=== PATIENT | female | born 1985 | race Caucasian/White ===

== ENCOUNTER 2017-07-10 22:37 | Emergency (ER) | payer OTHER ==
[2017-07-11 00:15] LABS: Absolute Lymphocytes (CBC) 1.4 K/uL (0.7-4.9); Absolute Monocytes 0.7 K/uL (0.1-1.3); Absolute Neutrophil 16.1 K/uL (1.8-8.0); Basophils % 0.4 % (0-1.3); Hematocrit 36.6 % (36.0-45.0); Lymphocytes % 7.6 % (15.3-44.8); MCH 28.6 pg (27.0-35.0); MCV 85.2 fL (80-100); MPV 9.5 fL (7.6-11.3); Monocytes % 3.8 % (3.3-12.3)
[2017-07-11 00:22] LABS: Protime INR 0.92
[2017-07-11 00:29] LABS: Bicarbonate 26 mEq/L (21-31); Glucose Level 152 mg/dL (65-120); Lipase 29 U/L (22-51); Potassium 4.1 mEq/L (3.6-5.0); Sodium Level 138 mEq/L (135-145)
[2017-07-11 00:36] LABS: ALT/SGPT 20 IU/L (10-60); AST/SGOT 23 IU/L (10-42); Albumin 3.2 g/dL (3.2-5.5); Alkaline Phosphatase 49 IU/L (42-121); BUN Blood Urea Nitrogen 14 mg/dL (6-20); Bilirubin Direct < 0.1 mg/dL (0-0.2); Bilirubin Total 0.3 mg/dL (0.3-1.2); CKMB Creatine Kinase MB 1.1 ng/ml (0.3-4.0); Creatine Phosphokinase 57 IU/L (22-269); Glomerular Filtration Rate > 90 mL/min (=/>90); Magnesium 1.7 mg/dL (1.8-2.5); Protein, Total 6.4 g/dL (6.0-8.3)
[2017-07-11 01:11] LABS: Urine Blood NEGATIVE (NEG); Urine Glucose NEGATIVE (NEG); Urine Protein 1+ (NEG)
[2017-07-11 01:51] LABS: Blood Morphology Comment NOT SEEN (NOT SEEN); Platelet Estimate ADEQ; Urine White Blood Cell Casts OK
[2017-07-11] MEDS ORDERED: MORPHINE 4 MG/ML SYR ONE (03:12)
[2017-07-11] MEDS ORDERED: ONDANSETRON 4 MG/2 ML VIAL ONE (03:12)
--- NOTE | 2017-07-11 03:44 | EDPHYS ---
Physician Documentation [facility] Name: Elizabeth Britton Age: 31 yrs Sex: Female : 1985 Arrival Date: 07/10/2017 Time: 22:51 Bed 5 Private MD: ED Physician Jaren Anderson HPI: 07/11 00:00 This 31 yrs old Female presents to ER via Ambulatory with complaints of chest pm1 pain. 00:00 The patient or guardian reports chest pain that is located primarily in the anterior pm1 chest wall, right. The pain does not radiate. Associated signs and symptoms: Pertinent positives: abdominal pain, shortness of breath, Pertinent negatives: cough, diaphoresis, headache, nausea, palpitations, vomiting. 00:00 The chest pain is described as aching. Duration: The patient or guardian reports a pm1 single episode. Severity of pain: in the emergency department the pain has resolved. The patient has not experienced similar symptoms in the past. Patient was seen at the fertility clinic and had 16 eggs harvested after hormonal treatment. Patient with some expected lower abdominal pain but at 2100 she started to experience some right sided chest pain and shortness of breath. Chest pain resolved but she reported some shortness of breath and upper abdominal pain. Patient concerned due to history of PE. 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 - Social history:: Smoking status: Patient/guardian denies using tobacco, Patient/guardian denies using alcohol, but has a distant history of alcohol abuse, street drugs. ROS: 07/11 00:00 Constitutional: Negative for fever, chills, and weight loss, Eyes: Negative for injury, pm1 pain, redness, and discharge, ENT: Negative for injury, pain, and discharge, Neck: Negative for injury, pain, and swelling. Back: Negative for injury and pain. : Negative for injury, bleeding, discharge, and swelling, MS/Extremity: Negative for injury and deformity, Skin: Negative for injury, rash, and discoloration, Neuro: Negative for headache, weakness, numbness, tingling, and seizure. Cardiovascular: Positive for chest pain, resolved. Respiratory: Positive for shortness of breath, Negative for cough, sputum production, wheezing. Abdomen/GI: Positive for abdominal pain, of the suprapubic area, right upper quadrant and left upper quadrant, Negative for nausea, vomiting, and diarrhea. Exam: 00:00 Constitutional: This is a well developed, well nourished patient who is awake, alert, pm1 and in no acute distress. Head/Face: Normocephalic, atraumatic. Eyes: Pupils equal round and reactive to light, extra-ocular motions intact. Lids and lashes normal. Conjunctiva and sclera are non-icteric and not injected. Cornea within normal limits. Periorbital areas with no swelling, redness, or edema. ENT: Nares patent. No nasal discharge, no septal abnormalities noted. Tympanic membranes are normal and external auditory canals are clear. Oropharynx with no redness, swelling, or masses, exudates, or evidence of obstruction, uvula midline. Mucous membranes moist. Neck: Trachea midline, no thyromegaly or masses palpated, and no cervical lymphadenopathy. Supple, full range of motion without nuchal rigidity, or vertebral point tenderness. No Meningismus. Chest/axilla: Normal chest wall appearance and motion. Nontender with no deformity. No lesions are appreciated. Cardiovascular: Regular rate and rhythm with a normal S1 and S2. No gallops, murmurs, or rubs. Normal PMI, no JVD. No pulse deficits. Respiratory: Lungs have equal breath sounds bilaterally, clear to auscultation and percussion. No rales, rhonchi or wheezes noted. No increased work of breathing, no retractions or nasal flaring. 00:00 Back: No spinal tenderness. No costovertebral tenderness. Full range of motion. Skin: Warm, dry with normal turgor. Normal color with no rashes, no lesions, and no evidence of cellulitis. MS/ Extremity: Pulses equal, no cyanosis. Neurovascular intact. Full, normal range of motion. 00:00 Abdomen/GI: Inspection: abdomen appears normal, Bowel sounds: normal, Palpation: soft, mild abdominal tenderness, in the right upper quadrant and left upper quadrant, mass, is not appreciated, rebound tenderness, is not appreciated. 00:00 Neuro: Orientation: is normal, Motor: is normal, moves all fours, Gait: is steady, at a normal pace, without difficulty. Vital Signs: 07/10 23:01 BP 100 / 65; Pulse 85; Resp 14; Temp 97.7(O); Pulse Ox 98% on R/A; Weight 63.5 kg (R); ao Height 5 ft. 2 in. (157.48 cm) (R); Pain 4/10; 23:58 BP 94 / 60; Pulse 55; Resp 18; Pulse Ox 100% on R/A; aa1 07/11 01:18 BP 116 / 82; Pulse 54; Resp 16 S; Pulse Ox 100% on R/A; bb 02:19 BP 101 / 72; Pulse 53; Resp 16; Pulse Ox 99% on R/A; bb 03:04 BP 100 / 66; Pulse 55; Resp 18; Pulse Ox 97% on R/A; Pain 6/10; bb 03:58 BP 108 / 73; Pulse 57; Resp 17 S; Temp 97.9(O); Pulse Ox 100% on R/A; Pain 3/10; bb 07/10 23:01 Body Mass Index 25.61 (63.50 kg, 157.48 cm) ao MDM: 07/10 23:04 Patient medically screened. pm1 07/11 03:38 Data reviewed: vital signs. Data interpreted: Pulse oximetry: on room air is 97 %. pm1 Interpretation: normal. Counseling: I had a detailed discussion with the patient and/or guardian regarding: the historical points, exam findings, and any diagnostic results supporting the discharge/admit diagnosis, lab results, radiology results, the need for outpatient follow up, an OB/Gyne specialist, tomorrow. 03:40 Physician consultation: MD Harden was contacted at 03:40, regarding consult, patient's pm1 condition, and will see patient in office, tomorrow, would like medications started, Lovenox, Aspirin PO daily and Lovenox 40 mg SQ BID. Loading dose of Lovenox in the ER, she will contact the patient now to give further instructions. No antibiotic therapy. 07/10 23:23 Order name: BNP; Complete Time: 01:12 pm1 07/10 23:23 Order name: Basic Metabolic Panel; Complete Time: 00:56 pm1 07/10 23:23 Order name: CBC with Diff; Complete Time: 01:52 pm1 07/10 23:23 Order name: Ckmb; Complete Time: 00:56 pm1 07/10 23:23 Order name: CPK; Complete Time: 00:56 pm1 07/10 23:23 Order name: LFT's; Complete Time: 00:56 pm1 07/10 23:23 Order name: Magnesium; Complete Time: 00:56 pm1 07/10 23:23 Order name: PT-INR; Complete Time: 00:56 pm1 07/10 23:23 Order name: Ptt, Activated; Complete Time: 00:56 pm1 07/10 23:23 Order name: Troponin (emerg Dept Use Only); Complete Time: 00:56 pm1 07/10 23:23 Order name: XRAY Chest (1 view) pm1 07/10 23:23 Order name: Lipase; Complete Time: 00:56 pm1 07/11 00:17 Order name: Urine Dipstick--Ancillary (enter results); Complete Time: 01:12 em1 07/11 01:52 Order name: CBC Smear Scan; Complete Time: 01:52 EDMS 04 23:23 Order name: EKG; Complete Time: 23:23 pm1 07/10 23:23 Order name: Cardiac monitoring; Complete Time: 00:03 pm1 07/10 23:23 Order name: EKG - Nurse/Tech; Complete Time: 00:36 pm1 07/10 23:23 Order name: IV Saline Lock; Complete Time: 00:03 pm1 07/10 23:23 Order name: Labs collected and sent; Complete Time: 00:02 pm1 07/10 23:23 Order name: O2 Per Protocol; Complete Time: 00:02 pm1 07/10 23:23 Order name: O2 Sat Monitoring; Complete Time: 00:02 pm1 07/10 23:23 Order name: Urine Dipstick-Ancillary (obtain specimen); Complete Time: 00:02 pm1 07/10 23:39 Order name: CT Chest For PE Angio pm1 07/10 23:39 Order name: CT Abd/Pelvis - W/Contrast: IV contrast only pm1 Administered Medications: 03:02 Drug: morphine 4 mg Route: IVP; Site: left antecubital; bb 03:42 Follow up: Response: Pain is decreased bb 03:03 Drug: Zofran 4 mg Route: IVP; Site: left antecubital; bb 03:42 Follow up: Response: No adverse reaction bb 03:40 Drug: Lovenox 1 mg/kg Route: Sub-Q; Site: abdomen; bb 03:59 Follow up: Response: No adverse reaction bb 03:40 Drug: Aspirin 325 mg Route: PO; bb 03:59 Follow up: Response: No adverse reaction bb Disposition: 06:35 Co-signature as Attending Physician, Jaren Anderson MD. rn Disposition: 07/11/17 03:43 Discharged to Home. Impression: Right ovarian vein thrombus, Chest pain, unspecified. - Condition is Stable. - Discharge Instructions: Nonspecific Chest Pain. - Prescriptions for Lovenox 40 mg/0.4 mL Subcutaneous Syringe - inject 0.4 milliliter by SUBCUTANEOUS route every 12 hours for 14 days; 28 Syringe. Tylenol- Codeine #3 300-30 mg Oral Tablet - take 2 tablets by ORAL route every 6 hours As needed; 20 tablet. - Medication Reconciliation Form, Thank You Letter, Prescription Opioid Use form. - Follow up: Emergency Department; When: As needed; Reason: Worsening of condition. Follow up: Private Physician; When: Tomorrow; Reason: Recheck today's complaints, Continuance of care, Re-evaluation by your physician. - Problem is new. - Symptoms have improved. - Notes: Take aspirin 81mg by mouth once daily Signatures: Dispatcher [employer] Vangie York RN RN bb Nieto, Roman, MD MD rn Ortiz, Alex, RN RN ao Marinas, Patrick, NP DRUG COORDINATOR pm1 Corrections: (The following items were deleted from the chart) 00:03 07/10 23:23 Urine Test ordered. pm1 bb 07/11 03:52 03:40 Physician consultation: MD Harden was contacted at 03:40, regarding consult, pm1 patient's condition, and will see patient in office, tomorrow, would like medications started, Lovenox, Aspirin PO daily and Lovenox 40 mg SQ BID. Loading dose of Lovenox in the ER, she will contact the patient now to give further instructions, pm1
--- NOTE | 2017-07-11 03:44 | ER ---
Nurse's Notes [facility] Name: Elizabeth Britton Age: 31 yrs Sex: Female : 1985 Arrival Date: 07/10/2017 Time: 22:51 Bed 5 Private MD: Diagnosis: Right ovarian vein thrombus;Chest pain, unspecified Presentation: 07/10 22:54 Presenting complaint: Patient states: "I started having abdominal pain this afternoon ao and then it radiated to the chest. I had a procedure done this morning in one day surgery" Patient also C/O SOB. Transition of care: patient was not received from another setting of care. Onset of symptoms was July 10, 2017 at 09:00. Care prior to arrival: None. 22:54 Method Of Arrival: Ambulatory ao 22:54 Acuity: BE 3 ao Triage Assessment: 23:02 General: Appears in no apparent distress. comfortable, Behavior is calm, cooperative, ao appropriate for age. Pain: Complains of pain in chest Pain does not radiate. Pain currently is 4 out of 10 on a pain scale. 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 - Social history:: Smoking status: Patient/guardian denies using tobacco, Patient/guardian denies using alcohol, but has a distant history of alcohol abuse, street drugs. Screenin:10 Abuse screen: Denies threats or abuse. Nutritional screening: No deficits noted. bb Tuberculosis screening: No symptoms or risk factors identified. Fall Risk None identified. Assessment: 23:10 General: Appears in no apparent distress. uncomfortable, Behavior is calm, cooperative. bb Pain: Complains of pain in chest. Neuro: Level of Consciousness is awake, alert, obeys commands, Oriented to person, place, time, situation. Cardiovascular: Heart tones S1 S2 present Capillary refill < 3 seconds Patient's skin is warm and dry. Pulses are all present. Edema is absent. Respiratory: Reports shortness of breath Respiratory effort is even, unlabored, Respiratory pattern is regular, Breath sounds are clear bilaterally. GI: Abdomen is non-distended, Bowel sounds present X 4 quads. Derm: Skin is pink, warm \\T\\ dry. Musculoskeletal: Circulation, motion, and sensation intact. 07/11 00:15 Reassessment: No changes from previously documented assessment. Patient and/or family bb updated on plan of care and expected duration. Pain level reassessed. Patient is alert, oriented x 3, equal unlabored respirations, skin warm/dry/pink. 01:29 Reassessment: Patient and/or family updated on plan of care and expected duration. Pain bb level reassessed. Patient is alert, oriented x 3, equal unlabored respirations, skin warm/dry/pink. pt awaiting CT results, resting quietly, spouse at bedside. 02:20 Reassessment: Patient is alert, oriented x 3, equal unlabored respirations, skin bb warm/dry/pink. pt awaiting CT scan results, spouse at bedside. 03:03 Reassessment: pt BP 100/66 P Wilfred OPHTHALMIC TECHNICIAN notified confirmed administration of morphine bb for pt's abdominal pain 09/16 pt medicated see JUN. 03:42 Reassessment: pt states pain has improved. bb 03:57 Reassessment: Patient is alert, oriented x 3, equal unlabored respirations, skin bb warm/dry/pink. pt verbalized understanding of and agrees to plan of care discharge instructions given pt ambulated with steady gait to exit accompanied by spouse. Vital Signs: 07/10 23:01 BP 100 / 65; Pulse 85; Resp 14; Temp 97.7(O); Pulse Ox 98% on R/A; Weight 63.5 kg (R); ao Height 5 ft. 2 in. (157.48 cm) (R); Pain 4/10; 23:58 BP 94 / 60; Pulse 55; Resp 18; Pulse Ox 100% on R/A; aa1 07/11 01:18 BP 116 / 82; Pulse 54; Resp 16 S; Pulse Ox 100% on R/A; bb 02:19 BP 101 / 72; Pulse 53; Resp 16; Pulse Ox 99% on R/A; bb 03:04 BP 100 / 66; Pulse 55; Resp 18; Pulse Ox 97% on R/A; Pain /; bb 03:58 BP 108 / 73; Pulse 57; Resp 17 S; Temp 97.9(O); Pulse Ox 100% on R/A; Pain 3/10; bb 07/10 23:01 Body Mass Index 25.61 (63.50 kg, 157.48 cm) ao ED Course: 07/10 22:51 Patient arrived in ED. es 22:57 Triage completed. ao 23:02 Arm band placed on right wrist. Patient placed in an exam room, on a stretcher, on ao oxygen, on desk monitor, on pulse oximetry. 23:04 Sanchez Hardin NP is PHCP. pm1 23:04 Jaren Anderson MD is Attending Physician. pm1 23:10 Patient has correct armband on for positive identification. Placed in gown. Bed in low bb position. Call light in reach. Side rails up X 1. Adult w/ patient. desk monitor on. Pulse ox on. NIBP on. Warm blanket given. 23:40 Vangie Alfaro RN is Primary Nurse. bb 23:46 X-ray completed. Portable x-ray completed in exam room. Patient tolerated procedure kw well. 23:47 XRAY Chest (1 view) In Process Unspecified. EDMS 07/11 00:03 Initial lab(s) drawn, by md, sent to lab. Urine collected: clean catch specimen. bb Inserted saline lock: 20 gauge in left antecubital area, using aseptic technique. Blood collected. Missed attempt(s): 20 gauge in right antecubital area. Bleeding controlled, band aid applied, catheter tip intact. 00:36 EKG done, by ED staff, reviewed by Jaren Anderson MD. bb 00:[address] via stretcher. eh 00:59 CT completed. Patient tolerated procedure well. Patient moved back from CT. eh 01:01 CT Chest For PE Angio In Process Unspecified. EDMS 01:01 CT Abd/Pelvis - W/Contrast: IV contrast only In Process Unspecified. EDMS 03:58 No provider procedures requiring assistance completed. IV discontinued, intact, bb bleeding controlled, No redness/swelling at site. Pressure dressing applied. Administered Medications: 03:02 Drug: morphine 4 mg Route: IVP; Site: left antecubital; bb 03:42 Follow up: Response: Pain is decreased bb 03:03 Drug: Zofran 4 mg Route: IVP; Site: left antecubital; bb 03:42 Follow up: Response: No adverse reaction bb 03:40 Drug: Lovenox 1 mg/kg Route: Sub-Q; Site: abdomen; bb 03:59 Follow up: Response: No adverse reaction bb 03:40 Drug: Aspirin 325 mg Route: PO; bb 03:59 Follow up: Response: No adverse reaction bb Outcome: 03:43 Discharge ordered by MD. pm1 03:58 Discharged to home ambulatory, with family. bb 03:58 Condition: stable 03:58 Discharge instructions given to patient, Instructed on discharge instructions, follow up and referral plans. medication usage, Demonstrated understanding of instructions, follow-up care, medications, Prescriptions given X 2. 04:00 Patient left the ED. bb Signatures: Dispatcher [employer] Indu Dugan RN RN aa1 Caroline Davidson Ervin eh Ballard, Brenda, RN RN bb Whitley, Kimberlee kw Ortiz, Alex, RN RN ao Marinas, Patrick, NP OPHTHALMIC TECHNICIAN pm1
[2017-07-11] MEDS ORDERED: ENOXAPARIN 60 MG/0.6 ML SQ ONE (04:04)
[2017-07-11] MEDS ORDERED: ASPIRIN 325 MG TAB ONE (04:04)
[2017-07-11 04:11] VITALS: BP 108/73; TEMP 97.9; O2SAT 100
--- NOTE | 2017-07-11 07:35 | EKG ---
Test Date: 2017-07-11 Test Time: 00:30:38 Bonding Machine Operator: SETH MEASUREMENT RESULTS: Intervals: Rate: 51 NV: 138 QRSD: 72 QT: 438 QTc: 403 [place]: P: 72 NV: 138 QRS: 18 T: 24 INTERPRETIVE STATEMENTS: Sinus bradycardia Otherwise normal ECG Compared to ECG 03/15/2014 21:32:15 Sinus rhythm no longer present Electronically Signed On 07-11-17 07:34:44 CDT by Joseluis Hall
--- NOTE | 2017-07-11 08:19 | RAD REPORT ---
EXAM DESCRIPTION: RAD - Chest Single View - 07/10/2017 11:47 pm CLINICAL HISTORY: Chest and abdomen pain. COMPARISON: 02/25/2014 FINDINGS: Portable technique limits examination quality. The lungs are grossly clear. The heart is normal in size. No displaced fractures. IMPRESSION: No acute intrathoracic process suspected.
--- NOTE | 2017-07-11 08:36 | RAD REPORT ---
EXAM DESCRIPTION: CT - Chest For Pe Angio - 07/11/2017 3:49 am CLINICAL HISTORY: Chest pain. COMPARISON: None. TECHNIQUE: CT angiogram of the pulmonary arteries was performed with MIP. All CT scans are performed using dose optimization technique as appropriate and may include automated exposure control or mA/KV adjustment according to patient size. FINDINGS: No evidence of pulmonary thromboembolism. No acute aortic finding demonstrated. Patchy ground-glass opacities in both lungs may indicate mild interstitial pulmonary edema or bronchi olitis. No significant pericardial or pleural fluid. No concerning bony finding. IMPRESSION: No evidence of pulmonary thromboembolism.
--- NOTE | 2017-07-11 08:36 | RAD REPORT ---
EXAM DESCRIPTION: CTAbdomen Pelvis W Contrast - 07/11/2017 3:52 am CLINICAL HISTORY: Abdominal pain. COMPARISON: None. TECHNIQUE: Biphasic CT imaging of the abdomen and pelvis was performed with 100 ml non-ionic IV cont rast. All CT scans are performed using dose optimization technique as appropriate and may include automated exposure control or mA/KV adjustment according to patient size. FINDINGS: The lung bases are clear. The liver, spleen, pancreas, adrenal glands and kidneys are within normal limits. No bowel obstruction, free air or abscess. Moderate pelvic free fluid is seen. The appendix is normal . No evidence of significant lymphadenopathy. Both ovaries appear enlarged in size. Changes of a hysterectomy are seen. Filling defect in the right ovarian vein is seen which is enlarged suggesting right ovarian vein thrombosis. IMPRESSION: Both ovaries appear enlarged, patient has a history of recent ovulation induction which may account for this finding. Thrombus is present in the right ovarian vein. Mild to moderate pelvic free fluid.
== END 2017-07-11 04:00 | disposition home or self-care (01) ==
LOC: ER 22:37
DX: I82.890 Acute embolism and thrombosis of other specified veins (principal)
CPT/HCPCS: 36415; 71045; 71275; 74177; 80048; 80076; 81003; 82550; 82553; 83690; 83735; 83880; 84484; 85025; 85610; 85730; 93005; 96372; 96374; 96375; 99285; J1650; J2405; Q9967

== ENCOUNTER 2017-11-11 18:25 | Emergency (ER) | payer OTHER ==
--- OUTSIDE RECORDS SUMMARY | 2017-11-11 18:27 | XMS REPORT | Clinical Summary ---
:1985 Author Organization [facility] Address [address] [place] [address] Care Team Providers Name Role Phone Gabriela Escamilla MD Primary Care Provider Allergies No Known Allergies Current Medications Prescription Sig. Disp. Refills Start Date End Date Status traMADol (ULTRAM) 50 mg TK 1 T PO Q 4 H 0 10/20/2015 Active tablet cefuroxime (CEFTIN) 500 TK 1 T PO BID 0 10/20/2015 Active MG tablet ibuprofen (ADVIL,MOTRIN) TK 1 T PO Q 6 H PRN 0 10/20/2015 Active 600 MG tablet HYDROcodone-acetaminophe Take 1 tablet by Active n (NORCO) 7.5-325 mg per mouth every 6 (six) tablet hours as needed for moderate pain. enoxaparin (LOVENOX) 60 Inject 1 mg/kg under Active mg/0.6 mL syringe the skin 2 (two) times a day. HYPERRHO S/D 1,500 unit INJ IM NOW. 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
[2017-11-11] MEDS ORDERED: FENTANYL CITR 100 MCG/2 ML ONE (18:56)
[2017-11-11] MEDS ORDERED: NA CHLORIDE 0.9% 1,000 ML ONE (18:57)
[2017-11-11 19:03] LABS: Urine Blood NEGATIVE (NEG); Urine Glucose NEGATIVE (NEG); Urine Protein NEGATIVE (NEG); Urine pH 7.5 (5.0-7.0)
[2017-11-11 19:37] LABS: Absolute Lymphocytes (CBC) 2.7 K/uL (0.7-4.9); Absolute Monocytes 0.6 K/uL (0.1-1.3); Absolute Neutrophil 4.8 K/uL (1.8-8.0); Basophils % 0.9 % (0-1.3); Eosinophils % 3.8 % (0-4.4); Hematocrit 41.4 % (36.0-45.0); Lymphocytes % 31.6 % (15.3-44.8); MCH 29.3 pg (27.0-35.0); MCV 87.9 fL (80-100); MPV 9.4 fL (7.6-11.3); Monocytes % 6.6 % (3.3-12.3); RBC Red Blood Cell Count 4.71 M/uL (3.86-4.86)
[2017-11-11 19:47] LABS: Urine Bacteria <20 /HPF (<20); Urine Culture Reflex Order NOT NEEDED; Urine RBC <5 /HPF (NONE SEEN)
[2017-11-11 19:56] LABS: ALT/SGPT 27 U/L (12-78); AST/SGOT 22 U/L (15-37); Albumin 3.3 g/dL (3.4-5.0); Alkaline Phosphatase 68 U/L (45-117); BUN Blood Urea Nitrogen 18 mg/dL (7-18); Bicarbonate 28 mmol/L (21-32); Bilirubin Direct < 0.1 mg/dL (0-0.2); Bilirubin Total 0.2 mg/dL (0.2-1.0); Glucose Level 92 mg/dL (74-106); Lipase 228 U/L (73-393); Potassium 4.4 mmol/L (3.5-5.1); Protein, Total 6.9 g/dL (6.4-8.2); Sodium Level 142 mmol/L (136-145)
--- NOTE | 2017-11-11 21:43 | RAD REPORT ---
EXAM DESCRIPTION: CT - Abdomen Pelvis W Contrast - 11/11/2017 9:24 pm CLINICAL HISTORY: Abdominal pain. Right lower quadrant pain since yesterday COMPARISON: July 2017 TECHNIQUE: Computed axial tomography of the abdomen and pelvis was obtained. 100 cc Isovue-300 is ad ministered intravenously. Oral contrast was given. All CT scans are performed using dose optimization technique as appropriate and may include automated exposure control or mA/KV adjustment according to patient size. FINDINGS: The liver, spleen, pancreas, adrenals and kidneys appear unremarkable. The ovaries have decreased in size since the prior exam. The left ovary is normal size. The right ova ry measures 4.5 x 3.3 centimeters. It contains 2 cysts. One measures 2.9 centimeters. The other 2 rohit timeters would and is irregularly shaped. Small amount of free fluid is present within the right adne xae and cul-de-sac. There is no evidence of diverticulitis. The right ovarian vein thrombosis has partially resolved. A small umbilical hernia contains fat. A tiny ventral hernia contains fat within the upper pelvis mid line. A hysterectomy has been performed. A thickened appendix is not seen The rectum is mildly distended with stool IMPRESSION: The ovaries have decreased in size. The left ovary is normal size. The right ovary is m ildly enlarged. 2.9 centimeter right ovarian cyst is present. A 2 centimeter irregularly-shaped right ovarian cyst likely has recently ruptured with a small amount of free fluid. Partial resolution in the right ovarian vein thrombosis
--- NOTE | 2017-11-11 21:48 | RAD REPORT ---
EXAM DESCRIPTION: CT - Chest For Pe Angio - 11/11/2017 9:27 pm CLINICAL HISTORY: Chest pain COMPARISON: July 2017 TECHNIQUE: Dynamically enhanced axial 3 mm thick images of the chest were obtained during administra tion of <100> mL Isovue 370 IV contrast. Coronal and oblique reconstruction images were generated and reviewed. Exam utilizes a protocol for optimal evaluation of pulmonary arterial tree. Maximum intensity projections 3D imaging was utilized All CT scans are performed using dose optimization technique as appropriate and may include automated exposure control or mA/KV adjustment according to patient size. FINDINGS: A pulmonary embolus is not seen. A thoracic aortic aneurysm is not noted. A pleural effusion is not seen. A pericardial effusion is not seen. A lung consolidation is not present. IMPRESSION: Negative for a pulmonary embolism.
--- NOTE | 2017-11-11 21:54 | EDPHYS ---
Physician Documentation [facility] Name: Elizabeth Britton Age: 32 yrs Sex: Female : 1985 Arrival Date: 11/11/2017 Time: 18:28 Bed 24 Private MD: None, None ED Physician Ammon Medina HPI: 11/11 18:48 This 32 yrs old Female presents to ER via Ambulatory with complaints of snw Abdominal Pain. 18:48 The patient presents with abdominal pain right lower quadrant. Onset: The snw symptoms/episode began/occurred gradually, and became worse today. The symptoms do not radiate. Associated signs and symptoms: none. The symptoms are described as constant. Modifying factors: The symptoms are alleviated by remaining still, the symptoms are aggravated by breathing deeply, movement, walking. Severity of pain: At its worst the pain was moderate. The patient has not experienced similar symptoms in the past. It is unknown whether or not the patient has recently seen a physician. and hysterectomy hx. 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 - Social history:: Smoking status: Patient/guardian denies using tobacco. - Ebola Screening: : Patient denies travel to an Ebola-affected area in the 21 days before illness onset. ROS: 18:48 Constitutional: Negative for fever, chills, and weight loss, Eyes: Negative for injury, snw pain, redness, and discharge, ENT: Negative for injury, pain, and discharge, Neck: Negative for injury, pain, and swelling, Cardiovascular: Negative for chest pain, palpitations, and edema, Respiratory: Negative for shortness of breath, cough, wheezing, and pleuritic chest pain, Back: Negative for injury and pain, : Negative for injury, bleeding, discharge, and swelling, MS/Extremity: Negative for injury and deformity, Skin: Negative for injury, rash, and discoloration, Neuro: Negative for headache, weakness, numbness, tingling, and seizure. 18:48 Abdomen/GI: Positive for abdominal pain. Exam: 18:47 Constitutional: This is a well developed, well nourished patient who is awake, alert, snw and in no acute distress. Head/Face: Normocephalic, atraumatic. Eyes: Pupils equal round and reactive to light, extra-ocular motions intact. Lids and lashes normal. Conjunctiva and sclera are non-icteric and not injected. Cornea within normal limits. Periorbital areas with no swelling, redness, or edema. ENT: Nares patent. No nasal discharge, no septal abnormalities noted. Tympanic membranes are normal and external auditory canals are clear. Oropharynx with no redness, swelling, or masses, exudates, or evidence of obstruction, uvula midline. Mucous membranes moist. Neck: Trachea midline, no thyromegaly or masses palpated, and no cervical lymphadenopathy. Supple, full range of motion without nuchal rigidity, or vertebral point tenderness. No Meningismus. Chest/axilla: Normal chest wall appearance and motion. Nontender with no deformity. No lesions are appreciated. Cardiovascular: Regular rate and rhythm with a normal S1 and S2. No gallops, murmurs, or rubs. Normal PMI, no JVD. No pulse deficits. Respiratory: Lungs have equal breath sounds bilaterally, clear to auscultation and percussion. No rales, rhonchi or wheezes noted. No increased work of breathing, no retractions or nasal flaring. Back: No spinal tenderness. No costovertebral tenderness. Full range of motion. Skin: Warm, dry with normal turgor. Normal color with no rashes, no lesions, and no evidence of cellulitis. MS/ Extremity: Pulses equal, no cyanosis. Neurovascular intact. Full, normal range of motion. Neuro: Awake and alert, GCS 15, oriented to person, place, time, and situation. Cranial nerves II-XII grossly intact. Motor strength 5/5 in all extremities. Sensory grossly intact. Cerebellar exam normal. Normal gait. Psych: Awake, alert, with orientation to person, place and time. Behavior, mood, and affect are within normal limits. 18:47 Abdomen/GI: Inspection: abdomen appears normal, Bowel sounds: normal, in all quadrants, Palpation: moderate abdominal tenderness, in the right lower quadrant. Vital Signs: 18:33 BP 115 / 91; Pulse 63; Resp 18; Temp 98.7; Pulse Ox 99% on R/A; Weight 61.23 kg (R); aj1 Height 5 ft. 2 in. (157.48 cm) (R); Pain 5/10; 19:53 BP 92 / 72; Pulse 62; Resp 18; Pulse Ox 99% on R/A; Pain 6/10; mg2 21:00 BP 103 / 63; Pulse 65; Resp 18; Pulse Ox 100% on R/A; mg2 22:10 BP 103 / 87; Pulse 66; Resp 18; Pulse Ox 100% on R/A; Pain 5/10; mg2 18:33 Body Mass Index 24.69 (61.23 kg, 157.48 cm) aj1 MDM: 18:37 Patient medically screened. [facility] 19:54 Data reviewed: vital signs, nurses notes. Data interpreted: Pulse oximetry: on room air snw is 99 %. Interpretation: normal. Counseling: I had a detailed discussion with the patient and/or guardian regarding: the historical points, exam findings, and any diagnostic results supporting the discharge/admit diagnosis, DD elevated, CT notified to do CT PE study and follow through for the abd/pelvis CT. 21:34 ED course: requests pain medications again, awaiting CT results. snw 11/11 18:46 Order name: Basic Metabolic Panel; Complete Time: 20:03 snw 11/11 18:46 Order name: CBC with Diff; Complete Time: 19:53 snw 11/11 18:46 Order name: Hepatic Function; Complete Time: 20:03 snw 11/11 18:46 Order name: Lipase; Complete Time: 20:03 snw 11/11 18:46 Order name: Urine Microscopic Only; Complete Time: 19:53 snw 11/11 18:46 Order name: DD; Complete Time: 19:53 snw 11/11 18:46 Order name: CT Abd/Pelvis - W/Contrast; Complete Time: 21:50 snw 11/11 18:54 Order name: Urine Dipstick--Ancillary (enter results); Complete Time: 19:19 bd 11/11 18:54 Order name: Urine --Ancillary (enter results); Complete Time: 19:19 bd 11/11 19:56 Order name: CT Chest For PE Angio; Complete Time: 21:50 rg2 11/11 18:46 Order name: IV Saline Lock; Complete Time: 19:06 snw 11/11 18:46 Order name: Labs collected and sent; Complete Time: 19:06 snw 11/11 18:46 Order name: Urine Dipstick-Ancillary (obtain specimen); Complete Time: 18:50 snw Administered Medications: 19:06 Drug: NS 0.9% 1000 ml Route: IV; Rate: 1000 ml; Site: left antecubital; mg2 19:06 Drug: fentaNYL (PF) 25 mcg Route: IVP; Site: left antecubital; mg2 19:51 Follow up: Response: No adverse reaction; Pain is unchanged, physician notified mg2 19:51 Drug: fentaNYL (PF) 25 mcg Route: IVP; Site: left antecubital; mg2 20:38 Follow up: Response: No adverse reaction; Pain is unchanged, physician notified mg2 22:04 Drug: TORadol 30 mg Route: IVP; Site: left antecubital; mg2 22:04 Follow up: Response: No adverse reaction; Medication administered at discharge. mg2 22:04 Drug: fentaNYL (PF) 25 mcg Route: IM; Site: right gluteus; mg2 22:04 Follow up: Response: No adverse reaction; Medication administered at discharge. mg2 Disposition: 11/12 03:34 Co-signature as Attending Physician, None None. pkl Disposition: 11/11/17 21:53 Discharged to Home. Impression: Follicular cyst of ovary - ruptured. - Condition is Stable. - Discharge Instructions: Abdominal Pain, Adult, Ovarian Cyst. - Prescriptions for Diclofenac Sodium 75 mg Oral Tablet Sustained Release - take 1 tablet by ORAL route 2 times per day; 30 tablet. - Medication Reconciliation Form, Thank You Letter, Antibiotic Education, Prescription Opioid Use form. - Follow up: Private Physician; When: 2 - 3 days; Reason: Recheck today's complaints, Continuance of care, Re-evaluation by your physician. Follow up: Emergency Department; When: As needed; Reason: Worsening of condition. Signatures: Dispatcher [employer] Pamela Crowley RN RN aj1 Igor Lewis MD MD cha Lam, Pin, MD MD pkKeisha Marte, PATIENT SUPPORT REPRESENTATIVE-C PATIENT SUPPORT REPRESENTATIVE-Csnw Alejandro Russell RN RN mg2 Corrections: (The following items were deleted from the chart) 08/05 22:11 21:53 11/11/2017 21:53 Discharged to Home. Impression: Follicular cyst of ovary - mg2 ruptured. Condition is Stable. Forms are Medication Reconciliation Form, Thank You Letter, Antibiotic Education, Prescription Opioid Use. Follow up: Private Physician; When: 2 - 3 days; Reason: Recheck today's complaints, Continuance of care, Re-evaluation by your physician. Follow up: Emergency Department; When: As needed; Reason: Worsening of condition. snw
--- NOTE | 2017-11-11 21:54 | ER ---
Nurse's Notes [facility] Name: Elizabeth Britton Age: 32 yrs Sex: Female : 1985 Arrival Date: 11/11/2017 Time: 18:28 Bed 24 Private MD: None, None Diagnosis: Follicular cyst of ovary-ruptured Presentation: 11/11 18:30 Presenting complaint: Patient states: RLQ abdominal pain since yesterday. Denies N/V/D. aj1 Denies fever. Transition of care: patient was not received from another setting of care. Onset of symptoms was November 09, 2017. Risk Assessment: Do you want to hurt yourself or someone else? Patient reports no desire to harm self or others. Initial Sepsis Screen: Does the patient meet any 2 criteria? No. Patient's initial sepsis screen is negative. Does the patient have a suspected source of infection? No. Patient's initial sepsis screen is negative. Care prior to arrival: None. 18:30 Method Of Arrival: Ambulatory aj 18:30 Acuity: BE 3 aj1 Triage Assessment: 18:33 General: Appears in no apparent distress. comfortable, Behavior is calm, cooperative, aj1 appropriate for age. Pain: Complains of pain in right lower quadrant Pain does not radiate. Pain currently is 5 out of 10 on a pain scale. Quality of pain is described as sharp, Pain began 2-3 days ago. Is continuous. Neuro: Level of Consciousness is awake, alert, obeys commands. Cardiovascular: Patient's skin is warm and dry. Respiratory: Airway is patent Respiratory effort is even, unlabored, Respiratory pattern is regular, symmetrical. GI: Abdomen is non-distended, Reports lower abdominal pain, Patient currently denies diarrhea, nausea, vomiting. : No signs and/or symptoms were reported regarding the genitourinary system. Derm: No signs and/or symptoms reported regarding the dermatologic system. Skin is pink, warm \T\ dry. normal. Musculoskeletal: No signs and/or symptoms reported regarding the musculoskeletal system. Circulation, motion, and sensation intact. [employer]: 18:33 LMP N/A - Hysterectomy aj1 Historical: - Allergies: 18:33 No Known Allergies; aj1 - Home Meds: 18:33 None [Active]; aj1 - PMHx: 18:33 None; aj1 - PSHx: 18:33 Hysterectomy; ; aj1 - Immunization history:: Flu vaccine is not up to date. - Social history:: Smoking status: Patient/guardian denies using tobacco. - Ebola Screening: : Patient denies travel to an Ebola-affected area in the 21 days before illness onset. Screenin:06 Abuse screen: Denies threats or abuse. Denies injuries from another. Nutritional mg2 screening: No deficits noted. Tuberculosis screening: No symptoms or risk factors identified. Fall Risk IV access (20 points). Assessment: 19:07 General: Appears comfortable, Behavior is calm, cooperative. Pain: Complains of pain in mg2 right lower quadrant Pain does not radiate. Pain currently is 5 out of 10 on a pain scale. Quality of pain is described as aching, Pain began gradually, Is intermittent, Alleviated by. Neuro: Level of Consciousness is awake, alert, obeys commands, Oriented to person, place, time, situation. Cardiovascular: Capillary refill < 3 seconds Patient's skin is warm and dry. Respiratory: Airway is patent Respiratory effort is even, unlabored, Respiratory pattern is regular, symmetrical. GI: Abdomen is flat, non-distended, Bowel sounds present X 4 quads. : No signs and/or symptoms were reported regarding the genitourinary system. EENT: No signs and/or symptoms were reported regarding the EENT system. Derm: Skin is intact, Skin is pink, warm \T\ dry. normal. Musculoskeletal: Circulation, motion, and sensation intact. 22:00 GI: Abdomen is tender to palpation. mg2 Vital Signs: 18:33 BP 115 / 91; Pulse 63; Resp 18; Temp 98.7; Pulse Ox 99% on R/A; Weight 61.23 kg (R); aj1 Height 5 ft. 2 in. (157.48 cm) (R); Pain 5/10; 19:53 BP 92 / 72; Pulse 62; Resp 18; Pulse Ox 99% on R/A; Pain 6/10; mg2 21:00 BP 103 / 63; Pulse 65; Resp 18; Pulse Ox 100% on R/A; mg2 22:10 BP 103 / 87; Pulse 66; Resp 18; Pulse Ox 100% on R/A; Pain 5/10; mg2 18:33 Body Mass Index 24.69 (61.23 kg, 157.48 cm) aj ED Course: 18:28 Patient arrived in ED. mr 18:28 None, None is Private Physician. mr 18:33 Triage completed. aj1 18:33 Arm band placed on Patient placed in an exam room. aj1 18:36 Ke[facility]C [facility] snw 18:41 Alejandro Russell, RN is Primary Nurse. mg2 19:09 Inserted saline lock: 22 gauge in left antecubital area, using aseptic technique. Blood mg2 collected. 21:23 CT completed. Patient moved to CT via stretcher. Patient moved back from CT. cw1 21:24 CT Abd/Pelvis - W/Contrast In Process Unspecified. EDMS 21:25 CT Chest For PE Angio In Process Unspecified. EDMS 21:53 Ammon Medina MD is Attending Physician. snw 22:00 Patient has correct armband on for positive identification. mg2 22:09 No provider procedures requiring assistance completed. IV discontinued, intact, mg2 bleeding controlled, No redness/swelling at site. Pressure dressing applied. Administered Medications: 19:06 Drug: NS 0.9% 1000 ml Route: IV; Rate: 1000 ml; Site: left antecubital; mg2 19:06 Drug: fentaNYL (PF) 25 mcg Route: IVP; Site: left antecubital; mg2 19:51 Follow up: Response: No adverse reaction; Pain is unchanged, physician notified mg2 19:51 Drug: fentaNYL (PF) 25 mcg Route: IVP; Site: left antecubital; mg2 20:38 Follow up: Response: No adverse reaction; Pain is unchanged, physician notified mg2 22:04 Drug: TORadol 30 mg Route: IVP; Site: left antecubital; mg2 22:04 Follow up: Response: No adverse reaction; Medication administered at discharge. mg2 22:04 Drug: fentaNYL (PF) 25 mcg Route: IM; Site: right gluteus; mg2 22:04 Follow up: Response: No adverse reaction; Medication administered at discharge. mg2 Outcome: 21:53 Discharge ordered by . snw 22:09 Discharged to home ambulatory, with family. mg2 22:09 Condition: stable 22:09 Discharge instructions given to patient, family, Instructed on discharge instructions, follow up and referral plans. medication usage, Demonstrated understanding of instructions, follow-up care, medications, Prescriptions given X 1. 22:11 Patient left the ED. mg2 Signatures: Dispatcher [employer] EDPamela Canales RN RN aj1 Keisha Sanchez, KEISHAC DIRECTOR OF DONOR RELATIONS-Ghislaine Lange mr Pedraza, Crystal cw1 Alejandro Russell RN RN mg2 Corrections: (The following items were deleted from the chart) 18:45 18:30 Presenting complaint: Patient states: LRQ abdominal pain since yesterday. Denies aj1 N/V/D. Denies fever. aj1
[2017-11-11] MEDS ORDERED: KETOROLAC 30 MG/ML INJ ONE (22:00)
[2017-11-11 22:15] VITALS: TEMP 98.7
[2017-11-11 22:17] VITALS: O2SAT 100
[2017-11-11 22:18] VITALS: BP 103/87
== END 2017-11-11 22:11 | disposition home or self-care (01) ==
LOC: ER 18:25
DX: N83.01 Follicular cyst of right ovary (principal)
CPT/HCPCS: 36415; 71275; 74177; 80048; 80076; 81003; 81015; 81025; 83690; 85025; 85379; 96372; 96374; 96375; 99284; J3010; J7030; Q9967

== ENCOUNTER 2018-05-16 12:14 | Emergency (ER) | payer BC, OTHER, SELFPAY ==
--- OUTSIDE RECORDS SUMMARY | 2018-05-16 12:16 | XMS REPORT | Clinical Summary ---
:1985 Author Organization [facility] Address [address] [place] [address] Care Team Providers Name Role Phone Gabriela Escamilla MD Primary Care Provider Allergies No Known Allergies Medications Medication Sig Dispensed Refills Start Date End Date Status traMADol (ULTRAM) 50 TK 1 T PO Q 4 H 0 10/20/2015 Active mg tablet cefuroxime (CEFTIN) TK 1 T PO BID 0 10/20/2015 Active 500 MG tablet ibuprofen TK 1 T PO Q 6 H 0 10/20/2015 Active (ADVIL,MOTRIN) 600 MG PRN tablet HYDROcodone-acetamino Take 1 tablet by 0 Active phen (NORCO) 7.5-325 mouth every 6 (six) mg per tablet hours as needed for moderate pain. enoxaparin (LOVENOX) Inject 1 mg/kg 0 Active 60 mg/0.6 mL syringe under the skin 2 (two) times a day. HYPERRHO S/D 1,500 INJ IM NOW. 0 09/16/2015 Active unit (300 mcg) syringe Active Problems Problem Noted Date Placenta accreta 11/17/2015 Pelvic infection in female 11/17/2015 Grief at loss of child 11/17/2015 Social History Tobacco Use Types Packs/Day Years Used Date Never Assessed Sex Assigned at Date Recorded Not on file Job Start Date Occupation Industry Not on file Not on file Not on file Travel History Travel Start Travel End No recent travel history available. Last Filed Vital Signs Not on file Plan of Treatment Health Maintenance Due Date Last Done Comments CERVICAL CANCER SCREENING 09/23/2004 INFLUENZA VACCINE 11/07/2017 Results Not on fileafter 05/15/2017 Insurance Payer Benefit Plan / Group Subscriber ID Type Phone Address AETNA AETNA HMO,POS,EPO, MC/EC xxxxxxxxxx HMO Advance Directives Patient has advance care planning documents on file. For more information, please contact:[place] [address]
--- NOTE | 2018-05-16 14:03 | RAD REPORT ---
EXAM DESCRIPTION: RAD - Chest Pa And Lat (2 Views) - 05/16/2018 1:38 pm CLINICAL HISTORY: Chest pain, left arm pain COMPARISON: July 2017 TECHNIQUE: PA and lateral views of the chest were obtained. FINDINGS: The lungs are clear. Lung markings are similar to comparison. Heart size is normal and ce ntral vasculature is within normal limits. No pleural effusion or pneumothorax seen. No acute bony finding noted. No aortic abnormality. IMPRESSION: No acute cardiopulmonary process. No significant interval change.
[2018-05-16] MEDS ORDERED: ASPIRIN 81 MG CHEWABLE TABLET ONE (14:10)
[2018-05-16] MEDS ORDERED: DIAZEPAM 5 MG TABLET ONE (14:10)
[2018-05-16 14:23] LABS: Absolute Lymphocytes (CBC) 2.4 K/uL (0.7-4.9); Absolute Monocytes 0.5 K/uL (0.1-1.3); Absolute Neutrophil 6.4 K/uL (1.8-8.0); Basophils % 1.1 % (0-1.3); Eosinophils % 0.9 % (0-4.4); Hematocrit 43.2 % (36.0-45.0); Lymphocytes % 24.9 % (15.3-44.8); MPV 8.7 fL (7.6-11.3); Monocytes % 5.3 % (3.3-12.3); RBC Red Blood Cell Count 4.92 M/uL (3.86-4.86)
--- NOTE | 2018-05-16 14:38 | RAD REPORT ---
EXAM DESCRIPTION: CT - Chest For Pe Angio - 05/16/2018 2:18 pm CLINICAL HISTORY: Chest pain, left-sided arm pain COMPARISON: None. TECHNIQUE: Dynamically enhanced 3 mm thick images of the chest were obtained during administration o f approximately 150mL Isovue 370 IV contrast. Coronal and oblique MIP reconstruction images were gene rated and reviewed. Exam utilizes a protocol to evaluate the pulmonary arterial tree. All CT scans are performed using dose optimization technique as appropriate and may include automated exposure control or mA/KV adjustment according to patient size. FINDINGS: No pulmonary emboli are identified. The aorta as imaged shows no acute or suspicious finding. No pericardial thickening or effusion. No focal mass or consolidation. Minimal interstitial edema or infiltrate cannot be entirely excluded. No pleural effusion or pleural thickening. No mediastinal or hilar suspicious masses. No chest wall masses or abnormal axillary lymphadenopathy. IMPRESSION: No pulmonary emboli identified. No other significant or suspicious findings.
[2018-05-16 14:41] LABS: BUN Blood Urea Nitrogen 23 mg/dL (7-18); Bicarbonate 28 mmol/L (21-32); Glucose Level 104 mg/dL (74-106); Potassium 3.9 mmol/L (3.5-5.1); Sodium Level 141 mmol/L (136-145)
--- NOTE | 2018-05-16 15:48 | EDPHYS ---
Physician Documentation [facility] Name: Elizabeth Britton Age: 32 yrs Sex: Female : 1985 Arrival Date: 05/16/2018 Time: 12:18 Bed Treatment Private MD: None, None ED Physician Dario Austin HPI: 05/16 13:58 This 32 yrs old Female presents to ER via Ambulatory with complaints of Arm snw Pain. 13:58 This 32 yrs old Female presents to ER via Ambulatory with complaints of Arm snw Pain. 13:58 The patient or guardian complains of decreased range of motion, pain. The complaints snw affect the left bicep, dorsal aspect of left forearm and posterior aspect of left shoulder. Context: The problem was sustained at an unknown location, resulted from unknown cause. Onset: The symptoms/episode began/occurred suddenly, 2 day(s) ago, and became worse and became persistent. Associated signs and symptoms: Pertinent positives: decreased range of motion, pain. Severity of symptoms: At their worst the symptoms were incapacitating. The patient has not experienced similar symptoms in the past. It is unknown whether or not the patient has recently seen a physician. Hx of PE during , cleared from anticoagulants 3 years ago. 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 - Social history:: Smoking status: Patient/guardian denies using tobacco, Patient/guardian denies using alcohol. - Ebola Screening: : Patient negative for fever greater than or equal to 101.5 degrees Fahrenheit, and additional compatible Ebola Virus Disease symptoms Patient denies exposure to infectious person Patient denies travel to an Ebola-affected area in the 21 days before illness onset. ROS: 13:57 Constitutional: Negative for fever, chills, and weight loss, Eyes: Negative for injury, snw pain, redness, and discharge, ENT: Negative for injury, pain, and discharge, Neck: Negative for injury, pain, and swelling, Cardiovascular: Negative for chest pain, palpitations, and edema, Respiratory: Negative for shortness of breath, cough, wheezing, and pleuritic chest pain, Abdomen/GI: Negative for abdominal pain, nausea, vomiting, diarrhea, and constipation, Back: Negative for injury and pain, : Negative for injury, bleeding, discharge, and swelling, Skin: Negative for injury, rash, and discoloration, Neuro: Negative for headache, weakness, numbness, tingling, and seizure, Psych: Negative for depression, anxiety, suicide ideation, homicidal ideation, and hallucinations. 13:57 MS/extremity: Positive for decreased range of motion, pain, of the left arm/shoulder. Exam: 13:56 Constitutional: This is a well developed, well nourished patient who is awake, alert, snw and in no acute distress. Head/Face: Normocephalic, atraumatic. Eyes: Pupils equal round and reactive to light, extra-ocular motions intact. Lids and lashes normal. Conjunctiva and sclera are non-icteric and not injected. Cornea within normal limits. Periorbital areas with no swelling, redness, or edema. ENT: Nares patent. No nasal discharge, no septal abnormalities noted. Tympanic membranes are normal and external auditory canals are clear. Oropharynx with no redness, swelling, or masses, exudates, or evidence of obstruction, uvula midline. Mucous membranes moist. Neck: Trachea midline, no thyromegaly or masses palpated, and no cervical lymphadenopathy. Supple, full range of motion without nuchal rigidity, or vertebral point tenderness. No Meningismus. Chest/axilla: Normal chest wall appearance and motion. Nontender with no deformity. No lesions are appreciated. Respiratory: Lungs have equal breath sounds bilaterally, clear to auscultation and percussion. No rales, rhonchi or wheezes noted. No increased work of breathing, no retractions or nasal flaring. Abdomen/GI: Soft, non-tender, with normal bowel sounds. No distension or tympany. No guarding or rebound. No evidence of tenderness throughout. Back: No spinal tenderness. No costovertebral tenderness. Full range of motion. 13:56 Skin: Warm, dry with normal turgor. Normal color with no rashes, no lesions, and no evidence of cellulitis. Neuro: Awake and alert, GCS 15, oriented to person, place, time, and situation. Cranial nerves II-XII grossly intact. Motor strength 5/5 in all extremities. Sensory grossly intact. Cerebellar exam normal. Normal gait. Psych: Awake, alert, with orientation to person, place and time. Behavior, mood, and affect are within normal limits. 13:56 Cardiovascular: Rate: normal, Rhythm: regular, Pulses: no pulse deficits are appreciated. 13:56 Musculoskeletal/extremity: Extremities: grossly normal except: noted in the left arm/shoulder: ROM: limited active range of motion due to pain, limited passive range of motion due to pain, Circulation is intact in all extremities. Severe pain noted. Vital Signs: 12:25 BP 121 / 95; Pulse 80; Resp 18; Temp 97.8(TE); Pulse Ox 98% on R/A; Weight 61.23 kg; hj Height 5 ft. 2 in. (157.48 cm); Pain 6/10; 13:50 BP 119 / 90; Pulse 82; Resp 18; Pulse Ox 100% on R/A; ca1 14:45 BP 121 / 89; Pulse 79; Resp 18; Pulse Ox 100% on R/A; ca1 15:50 BP 120 / 87; Pulse 89; Resp 18; Pulse Ox 99% on R/A; ca1 12:25 Body Mass Index 24.69 (61.23 kg, 157.48 cm) hj MDM: 13:40 Patient medically screened. snw 15:57 Data reviewed: vital signs, nurses notes. Data interpreted: Pulse oximetry: on room air snw is 98 %. Interpretation: normal. Counseling: I had a detailed discussion with the patient and/or guardian regarding: the historical points, exam findings, and any diagnostic results supporting the discharge/admit diagnosis, lab results, radiology results, the need for outpatient follow up, to return to the emergency department if symptoms worsen or persist or if there are any questions or concerns that arise at home. Special discussion: Based on the history and exam findings, there is no indication for further emergent testing or inpatient evaluation. I discussed with the patient/guardian the need to see the welfare case worker for further evaluation of the symptoms. I discussed with the patient/guardian the need to see the orthopedic surgeon for further evaluation of the symptoms. I discussed with the patient/guardian the need to see the primary care provider for further evaluation of the symptoms. 05/16 13:56 Order name: CBC with Diff; Complete Time: 14:45 snw 05/16 13:56 Order name: Chem 7; Complete Time: 14:45 snw 05/16 14:00 Order name: Urine Culture [facility] 05/16 14:00 Order name: Urine Microscopic Only [facility] 05/16 15:42 Order name: Urine Dipstick--Ancillary (enter results) 05/16 15:42 Order name: Urine --Ancillary (enter results) 05/16 13:11 Order name: EKG; Complete Time: 13:12 snw 05/16 13:11 Order name: EKG - Nurse/Tech; Complete Time: 14:15 snw 05/16 13:11 Order name: Chest Pa And Lat (2 Views) XRAY; Complete Time: 14:18 snw 05/16 13:56 Order name: CT Chest For PE Angio; Complete Time: 14:45 snw 05/16 14:00 Order name: Urine Test (obtain specimen); Complete Time: 15:42 snw 05/16 14:00 Order name: Urine Dipstick-Ancillary (obtain specimen); Complete Time: 15:42 snw Administered Medications: 11:40 Drug: Aspirin Chewable Tablet 324 mg Route: PO; ca1 16:08 Follow up: Response: No adverse reaction ca1 14:00 Drug: Valium 5 mg Route: PO; ca1 16:08 Follow up: Response: Pain is decreased ca1 15:42 Drug: Hydrochlorothiazide 25 mg Route: PO; ca1 16:08 Follow up: Response: No adverse reaction ca1 Disposition: 05/17 12:41 Co-signature as Attending Physician, Dario Austin MD I agree with the assessment and wa plan of care. Disposition: 05/16/18 15:47 Discharged to Home. Impression: Pain in left shoulder, Fluid overload - minimal. - Condition is Stable. - Discharge Instructions: Joint Pain, Musculoskeletal Pain, Shoulder Pain, Aspirin and Your Heart, Cryotherapy, Heat Therapy. - Prescriptions for orphenadrine citrate 100 mg Oral Tablet Sustained Release - take 1 tablet by ORAL route 2 times per day As needed; 20 tablet. Diclofenac Sodium 75 mg Oral Tablet Sustained Release - take 1 tablet by ORAL route 2 times per day; 30 tablet. Hydrochlorothiazide 12.5 mg Oral Tablet - take 1 tablet by ORAL route once daily; 30 tablet. - Medication Reconciliation Form, Thank You Letter, Antibiotic Education, Prescription Opioid Use form. - Follow up: Private Physician; When: 1 - 2 days; Reason: Recheck today's complaints, Continuance of care, Re-evaluation by your physician. Follow up: Emergency Department; When: As needed; Reason: Worsening of condition. Signatures: Dispatcher [employer] EDMS LauraKeisha morris, EMERGENCY VEHICLE DISPATCHER-C EMERGENCY VEHICLE DISPATCHER-Csnw Star Krueger RN RN hj Dario Austin MD MD ne Penelope Ashford RN RN ca1 Corrections: (The following items were deleted from the chart) 05/16 16:16 15:47 05/16/2018 15:47 Discharged to Home. Impression: Pain in left shoulder; Fluid ca1 overload - minimal. Condition is Stable. Forms are Medication Reconciliation Form, Thank You Letter, Antibiotic Education, Prescription Opioid Use. Follow up: Private Physician; When: 1 - 2 days; Reason: Recheck today's complaints, Continuance of care, Re-evaluation by your physician. Follow up: Emergency Department; When: As needed; Reason: Worsening of condition. snw
--- NOTE | 2018-05-16 15:48 | ER ---
Nurse's Notes [facility] Name: Elizabeth Britton Age: 32 yrs Sex: Female : 1985 Arrival Date: 05/16/2018 Time: 12:18 Bed Treatment Private MD: None, None Diagnosis: Pain in left shoulder;Fluid overload-minimal Presentation: 05/16 12:21 Presenting complaint: Patient states: i have severe L arm pain that started yesterday, hj denies chest pain; pain is 6/10; denies trauma to the area; denies tingling or numbness;. Transition of care: patient was not received from another setting of care. Onset of symptoms was May 16, 2018. Risk Assessment: Do you want to hurt yourself or someone else? Patient reports no desire to harm self or others. Initial Sepsis Screen: Does the patient meet any 2 criteria? No. Patient's initial sepsis screen is negative. Does the patient have a suspected source of infection? No. Patient's initial sepsis screen is negative. Care prior to arrival: None. 12:21 Method Of Arrival: Ambulatory 12:21 Acuity: BE 3 Triage Assessment: 12:24 General: Appears in no apparent distress. uncomfortable, Behavior is calm, cooperative, hj appropriate for age. Pain: Complains of pain in left arm. 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 - Social history:: Smoking status: Patient/guardian denies using tobacco, Patient/guardian denies using alcohol. - Ebola Screening: : Patient negative for fever greater than or equal to 101.5 degrees Fahrenheit, and additional compatible Ebola Virus Disease symptoms Patient denies exposure to infectious person Patient denies travel to an Ebola-affected area in the 21 days before illness onset. Screenin:24 Abuse screen: Denies threats or abuse. Denies injuries from another. Nutritional hj screening: No deficits noted. Tuberculosis screening: No symptoms or risk factors identified. Fall Risk None identified. Assessment: 13:50 General: Appears in no apparent distress. Behavior is calm, cooperative, appropriate ca1 for age. Pain: Complains of pain in posterior aspect of left shoulder and dorsal aspect of left forearm and left bicep and left arm Pain currently is 5 out of 10 on a pain scale. Neuro: Level of Consciousness is awake, alert, obeys commands, Oriented to person, place, time, situation. Cardiovascular: Heart tones S1 S2 present Capillary refill < 3 seconds. Respiratory: Airway is patent Respiratory effort is even, unlabored, Respiratory pattern is regular, symmetrical, Breath sounds are clear bilaterally. GI: No signs and/or symptoms were reported involving the gastrointestinal system. : No signs and/or symptoms were reported regarding the genitourinary system. EENT: No signs and/or symptoms were reported regarding the EENT system. Derm: Skin is intact, Skin is pink, warm \T\ dry. Musculoskeletal: Circulation, motion, and sensation intact. 14:00 Reassessment: Patient appears in no apparent distress at this time. Patient is alert, ca1 oriented x 3, equal unlabored respirations, skin warm/dry/pink. Pt to CT scan. 15:00 Reassessment: Patient appears in no apparent distress at this time. Patient and/or ca1 family updated on plan of care and expected duration. Pain level reassessed. Patient is alert, oriented x 3, equal unlabored respirations, skin warm/dry/pink. 16:00 Reassessment: Patient appears in no apparent distress at this time. Patient and/or ca1 family updated on plan of care and expected duration. Pain level reassessed. Patient is alert, oriented x 3, equal unlabored respirations, skin warm/dry/pink. Patient states feeling better. Vital Signs: 12:25 BP 121 / 95; Pulse 80; Resp 18; Temp 97.8(TE); Pulse Ox 98% on R/A; Weight 61.23 kg; hj Height 5 ft. 2 in. (157.48 cm); Pain 6/10; 13:50 BP 119 / 90; Pulse 82; Resp 18; Pulse Ox 100% on R/A; ca1 14:45 BP 121 / 89; Pulse 79; Resp 18; Pulse Ox 100% on R/A; ca1 15:50 BP 120 / 87; Pulse 89; Resp 18; Pulse Ox 99% on R/A; ca1 12:25 Body Mass Index 24.69 (61.23 kg, 157.48 cm) hj ED Course: 12:18 Patient arrived in ED. mr 12:19 None, None is Private Physician. mr 12:23 Triage completed. hj 12:25 Arm band placed on right wrist. hj 12:25 Patient has correct armband on for positive identification. Placed in gown. Bed in low hj position. Call light in reach. Side rails up X 1. 13:38 Chest Pa And Lat (2 Views) XRAY In Process Unspecified. EDMS 13:40 Keisha Sanchez FNP-C is PHCP. snw 13:40 Dario Austin MD is Attending Physician. snw 13:42 Penelope Ashford, GURMEET is Primary Nurse. ca1 13:50 Inserted saline lock: 22 gauge in left antecubital area, using aseptic technique. Blood ca1 collected. 14:03 EKG done, by laboratory technical specialist. reviewed by Keisha POOLE. sm3 14:16 CT completed. Patient tolerated procedure well. Patient moved to CT via wheelchair. jg6 Patient moved back from CT. 14:19 CT Chest For PE Angio In Process Unspecified. EDMS 16:16 No provider procedures requiring assistance completed. IV discontinued, intact, ca1 bleeding controlled, No redness/swelling at site. Pressure dressing applied. Administered Medications: 11:40 Drug: Aspirin Chewable Tablet 324 mg Route: PO; ca1 16:08 Follow up: Response: No adverse reaction ca1 14:00 Drug: Valium 5 mg Route: PO; ca1 16:08 Follow up: Response: Pain is decreased ca1 15:42 Drug: Hydrochlorothiazide 25 mg Route: PO; ca1 16:08 Follow up: Response: No adverse reaction ca1 Outcome: 15:47 Discharge ordered by . snw 16:16 Discharged to home ambulatory. ca1 16:16 Condition: stable 16:16 Discharge instructions given to patient, Instructed on discharge instructions, follow up and referral plans. the need for admit, Demonstrated understanding of instructions, follow-up care, medications, Prescriptions given X 3. 16:16 Patient left the ED. ca1 Addendum: 05/20/2018 07:41 Addendum: Culture Results: Positive urine culture. No further action required. Other: i w pt had no urinary complaints at time of service, no further action needed, culture report reviewed by MANOLO Up. Patient was not prescribed antibiotics at discharge. Report given to ANIBAL for further evaluation and then to automatic packer operator for follow up with patient. Signatures: Dispatcher [employer] EDMS Keisha Sanchez, VIRGILIO HYDROGEN POWER PLANT ENGINEER-Giselle Percy Genevieve MiPatti, RN GURMEET iw Star Krueger RN RN hj Montes, Shakira 3 Scarlet Robledo 6 Penelope Ashford RN RN ca1 Corrections: (The following items were deleted from the chart) 05/16 14:24 12:21 Acuity: BE 4 juanis olivarez
[2018-05-16] MEDS ORDERED: hydroCHLOROthiazide 25 MG TAB ONE (15:58)
[2018-05-16 16:11] LABS: Urine Blood NEGATIVE (NEG); Urine Glucose NEGATIVE (NEG); Urine Protein NEGATIVE (NEG); Urine Specific Gravity 1.015 (1.005-1.030); Urine pH 8.5 (5.0-7.0)
[2018-05-16 16:24] VITALS: TEMP 97.8
[2018-05-16 16:27] VITALS: BP 120/87; O2SAT 99
[2018-05-16 16:33] LABS: Urine Bacteria >50 /HPF (<20); Urine RBC NONE SEEN /HPF (NONE SEEN)
[2018-05-16 16:34] LABS: Urine Culture Reflex Order NOT NEEDED
--- NOTE | 2018-05-16 17:04 | EKG ---
Test Date: 2018-05-16 Test Time: 13:48:48 Oil Pipe Inspector: CLEMENTINE MEASUREMENT RESULTS: Intervals: Rate: 85 NE: 138 QRSD: 70 QT: 366 QTc: [address] [place]: P: 80 NE: 138 QRS: 80 T: 59 INTERPRETIVE STATEMENTS: Normal sinus rhythm with sinus arrhythmia Right atrial enlargement Low voltage QRS Borderline ECG Compared to ECG 07/11/2017 00:30:38 Atrial abnormality now present Low QRS voltage now present Sinus bradycardia no longer present Electronically Signed On 05-16-18 17:03:25 BUN PANNER by Wilfredo Baca
== END 2018-05-16 16:16 | disposition home or self-care (01) ==
LOC: ER 12:14
DX: E87.70 Fluid overload, unspecified (principal)
CPT/HCPCS: 36415; 71046; 71275; 80048; 81003; 81015; 81025; 85025; 87077; 87086; 87088; 87186; 93005; 99284; Q9967

== ENCOUNTER 2019-05-16 05:54 | Emergency (ER) | payer BC ==
[2019-05-16] MEDS ORDERED: FENTANYL CITR 100 MCG/2 ML ONE (06:32)
[2019-05-16] MEDS ORDERED: HYDROCODONE/APAP 5/325 MG TAB ONE (07:12)
[2019-05-16] MEDS ORDERED: DIAZEPAM 5 MG TABLET ONE (07:13)
--- NOTE | 2019-05-16 08:22 | ER ---
Nurse's Notes [facility] Name: Elizabeth Britton Age: 33 yrs Sex: Female : 1985 Arrival Date: 05/16/2019 Time: 05:56 Bed 20 Private MD: Diagnosis: Fall on same level from slipping, tripping and stumbling;NONDISPLACED FRACTURE OF RADIAL HEAD Presentation: 05/16 06:21 Presenting complaint: Patient states: [place] and bb fell onto right hand outstretched with injury to right elbow approx 30 mins ago. Transition of care: patient was not received from another setting of care. Onset of symptoms was May 16, 2019. Risk Assessment: Do you want to hurt yourself or someone else? Patient reports no desire to harm self or others. Initial Sepsis Screen: Does the patient meet any 2 criteria? No. Patient's initial sepsis screen is negative. Does the patient have a suspected source of infection? No. Patient's initial sepsis screen is negative. Care prior to arrival: None. 06:21 Method Of Arrival: Ambulatory bb 06:21 Acuity: EB 4 bb Triage Assessment: 06:22 General: Appears uncomfortable, Behavior is calm, cooperative. Pain: Complains of pain bb in right arm Pain currently is 5 out of 10 on a pain scale. at worst was 9 out of 10 on a pain scale. Neuro: Level of Consciousness is awake, alert, obeys commands, Oriented to person, place, time, situation. Cardiovascular: No deficits noted. Respiratory: Respiratory effort is even, unlabored, Respiratory pattern is regular. GI: No deficits noted. No signs and/or symptoms were reported involving the gastrointestinal system. Derm: Skin is pink, warm \T\ dry. Musculoskeletal: cap refill less than 2 seconds right hand Reports pain in right arm. Injury Description: fall. 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 - Coronavirus screen:: The patient has NOT traveled to [place], [place], or [place] in the past 14 days. Proceed with normal triage process as indicated. - Social history:: Smoking status: Patient denies any tobacco usage or history of. - Ebola Screening: : No symptoms or risks identified at this time. Screenin:25 Abuse screen: Denies threats or abuse. Nutritional screening: No deficits noted. bb Tuberculosis screening: No symptoms or risk factors identified. Fall Risk None identified. Assessment: 06:25 Reassessment: No changes from previously documented assessment. see triage assessment. bb 07:14 Reassessment: pt states pain medication not working after Xray S Laura JAVA SYSTEMS ANALYST notified bb new orders received pt medicated see JUN. 07:31 Reassessment: xray at bedside again. sg 07:45 Reassessment: Patient appears in no apparent distress at this time. Bernad[facility] orders for sugartong splint then repeat images, heavy padding in the elbow of splint per ERP. 07:47 Reassessment: Patient appears in no apparent distress at this time. xray at bedside at this time. Vital Signs: 06:22 BP 109 / 71; Pulse 72; Resp 16 S; Temp 97.9(O); Pulse Ox 98% on R/A; Weight 65.77 kg bb (R); Height 5 ft. 2 in. (157.48 cm) (R); Pain 5/10; 07:35 BP 107 / 70; Pulse 66; Resp 18; Pulse Ox 98% on R/A; sg 08:40 BP 110 / 70; Pulse 70; Resp 18; Pulse Ox 100% on R/A; sg 06:22 Body Mass Index 26.52 (65.77 kg, 157.48 cm) ED Course: 05:56 Patient arrived in ED. cl3 06:06 Keisha Sanchez FNP-C is [facility]. snw 06:06 Igor Lewis MD is Attending Physician. snw 06:22 Triage completed. bb 06:22 Arm band placed on Patient placed in an exam room, on a stretcher, on pulse oximetry. bb 06:25 Patient has correct armband on for positive identification. Bed in low position. Call bb light in reach. Side rails up X 1. 07:15 Report given to Yifan LEVI. bb 07:31 Pressley, Yifan, RN is Primary Nurse. sg 07:44 Elbow Right 3 View XRAY In Process Unspecified. EDMS 08:00 Orthoglass splint: Sugar tong splint applied on right arm. capillary refill <3 seconds. dh3 Viewed by Keisha Sanchez. 08:18 Yifan Hall MD is Referral Physician. snw 08:24 Forearm Right XRAY In Process Unspecified. EDMS 08:40 No provider procedures requiring assistance completed. Patient did not have IV access sg during this emergency room visit. Administered Medications: 06:36 Drug: fentaNYL (PF) 50 mcg {Note: RASS 0.} Route: IM; Site: left gluteus; bb 07:14 Follow up: Response: Pain is unchanged, physician notified bb 07:14 Drug: [place] 5 mg-325 mg 1 tabs {Note: RASS 0.} Route: PO; bb 07:14 Drug: Valium 10 mg Route: PO; bb Outcome: 08:21 Discharge ordered by MD. snw 08:40 Discharged to home ambulatory, with family. sg 08:40 Condition: good 08:40 Discharge instructions given to patient, Instructed on discharge instructions, follow up and referral plans. no drinking with medication, no driving heavy equipment, medication usage, safety practices, Demonstrated understanding of instructions, follow-up care, medications, splint care, Prescriptions given X 2. 08:47 Patient left the ED. sg Signatures: Dispatcher [employer] Yifan Watson, Keisha Tejada RN, ROLL FORMING MACHINE SET UP OPERATOR-C ROLL FORMING MACHINE SET UP OPERATOR-Arlethw Vangie Alfaro RN RN Yolanda Fiore 3 Tori Abdul 3
--- NOTE | 2019-05-16 08:22 | EDPHYS ---
Physician Documentation [facility] Name: Elizabeth Britton Age: 33 yrs Sex: Female : 1985 Arrival Date: 05/16/2019 Time: 05:56 Bed 20 Private MD: ED Physician Igor Lewis HPI: 05/16 07:30 This 33 yrs old Female presents to ER via Ambulatory with complaints of Elbow snw Injury, Fall Injury. 07:30 The patient or guardian complains of contusion, decreased range of motion, injury, snw pain. The complaints affect the right elbow. Context: The problem was sustained at a Gym. Onset: The symptoms/episode began/occurred suddenly. Treatment prior to arrival includes: no previous treatment. Modifying factors: The symptoms are alleviated by nothing. Associated signs and symptoms: The patient has no apparent associated signs or symptoms. Severity of symptoms: At their worst the symptoms were severe, incapacitating. The patient has not experienced similar symptoms in the past. The patient has not recently seen a physician. FIRST HELPER: 06:22 LMP N/A - Hysterectomy bb Historical: - Allergies: 06:22 No Known Allergies; bb - Home Meds: 06:22 None [Active]; bb - PMHx: 06:22 blood clot in lung; bb - PSHx: 06:22 ; Hysterectomy; bb - Immunization history:: Adult Immunizations up to date. - Coronavirus screen:: The patient has NOT traveled to [place], [place], or [place] in the past 14 days. Proceed with normal triage process as indicated. - Social history:: Smoking status: Patient denies any tobacco usage or history of. - Ebola Screening: : No symptoms or risks identified at this time. ROS: 07:27 Constitutional: Negative for fever, chills, and weight loss, Eyes: Negative for injury, snw pain, redness, and discharge, ENT: Negative for injury, pain, and discharge, Neck: Negative for injury, pain, and swelling, Cardiovascular: Negative for chest pain, palpitations, and edema, Respiratory: Negative for shortness of breath, cough, wheezing, and pleuritic chest pain, Abdomen/GI: Negative for abdominal pain, nausea, vomiting, diarrhea, and constipation, Back: Negative for injury and pain, : Negative for injury, bleeding, discharge, and swelling, Skin: Negative for injury, rash, and discoloration, Neuro: Negative for headache, weakness, numbness, tingling, and seizure, Psych: Negative for depression, anxiety, suicide ideation, homicidal ideation, and hallucinations. 07:27 MS/extremity: Positive for injury or acute deformity, decreased range of motion, pain, of the right elbow. Exam: 07:17 Constitutional: This is a well developed, well nourished patient who is awake, alert, snw and in no acute distress. Head/Face: Normocephalic, atraumatic. Eyes: Pupils equal round and reactive to light, extra-ocular motions intact. Lids and lashes normal. Conjunctiva and sclera are non-icteric and not injected. Cornea within normal limits. Periorbital areas with no swelling, redness, or edema. ENT: Nares patent. No nasal discharge, no septal abnormalities noted. Tympanic membranes are normal and external auditory canals are clear. Oropharynx with no redness, swelling, or masses, exudates, or evidence of obstruction, uvula midline. Mucous membranes moist. Neck: Trachea midline, no thyromegaly or masses palpated, and no cervical lymphadenopathy. Supple, full range of motion without nuchal rigidity, or vertebral point tenderness. No Meningismus. Chest/axilla: Normal chest wall appearance and motion. Nontender with no deformity. No lesions are appreciated. Cardiovascular: Regular rate and rhythm with a normal S1 and S2. No gallops, murmurs, or rubs. Normal PMI, no JVD. No pulse deficits. Respiratory: Lungs have equal breath sounds bilaterally, clear to auscultation and percussion. No rales, rhonchi or wheezes noted. No increased work of breathing, no retractions or nasal flaring. Abdomen/GI: Soft, non-tender, with normal bowel sounds. No distension or tympany. No guarding or rebound. No evidence of tenderness throughout. Back: No spinal tenderness. No costovertebral tenderness. Full range of motion. Skin: Warm, dry with normal turgor. Normal color with no rashes, no lesions, and no evidence of cellulitis. Neuro: Awake and alert, GCS 15, oriented to person, place, time, and situation. Cranial nerves II-XII grossly intact. Motor strength 5/5 in all extremities. Sensory grossly intact. Cerebellar exam normal. Normal gait. Psych: Awake, alert, with orientation to person, place and time. Behavior, mood, and affect are within normal limits. 07:17 Musculoskeletal/extremity: Extremities: grossly normal except: noted in the right elbow: contusion, decreased ROM, swelling, tenderness, ROM: limited active range of motion due to pain, limited passive range of motion due to pain, in the right elbow, Circulation is intact in all extremities. Compartment Syndrome exam of affected extremity: is normal. 07:55 Musculoskeletal/extremity: right upper extremity with pulses intact, + sensation. Pain snw improved minimally. Will splint and then re- xray for eval as pt unable to tolerate but one view before additional medications. Vital Signs: 06:22 BP 109 / 71; Pulse 72; Resp 16 S; Temp 97.9(O); Pulse Ox 98% on R/A; Weight 65.77 kg bb (R); Height 5 ft. 2 in. (157.48 cm) (R); Pain 5/10; 07:35 BP 107 / 70; Pulse 66; Resp 18; Pulse Ox 98% on R/A; sg 08:40 BP 110 / 70; Pulse 70; Resp 18; Pulse Ox 100% on R/A; sg 06:22 Body Mass Index 26.52 (65.77 kg, 157.48 cm) bb Procedures: 08:14 Splinting: Splint applied to right elbow using Orthoglass splint, sling, applied by snw nurse. Examined by me, post splint application: neurovascular intact, 2+ distal pulses palpable, brisk capillary refill noted, Patient tolerated well. MDM: 06:15 Patient medically screened. snw 07:52 Data reviewed: vital signs, nurses notes. Data interpreted: Pulse oximetry: on room air snw is 98 %. Interpretation: normal. Counseling: I had a detailed discussion with the patient and/or guardian regarding: the historical points, exam findings, and any diagnostic results supporting the discharge/admit diagnosis, radiology results, the need for outpatient follow up, for definitive care, a orthopedic surgeon. 08:14 Special discussion: Based on the history and exam findings, there is no indication for snw further emergent testing or inpatient evaluation. I discussed with the patient/guardian the need to see the orthopedic surgeon for further evaluation of the symptoms. 05/16 06:16 Order name: Elbow Right 3 View XRAY snw 05/16 07:40 Order name: Forearm Right XRAY snw 05/16 06:16 Order name: NPO; Complete Time: 06:26 snw 05/16 07:31 Order name: Judy Dorantes Forearm Splint; Complete Time: 08:15 snw Administered Medications: 06:36 Drug: fentaNYL (PF) 50 mcg {Note: RASS 0.} Route: IM; Site: left gluteus; bb 07:14 Follow up: Response: Pain is unchanged, physician notified bb 07:14 Drug: [place] [facility] 5 mg-325 mg 1 tabs {Note: RASS 0.} Route: PO; bb 07:14 Drug: Valium 10 mg Route: PO; bb Disposition: 09:13 Co-signature as Attending Physician, Igor Lewis MD I agree with the assessment and curtis plan of care. Disposition: 05/16/19 08:21 Discharged to Home. Impression: Fall on same level from slipping, tripping and stumbling, NONDISPLACED FRACTURE OF RADIAL HEAD. - Condition is Stable. - Discharge Instructions: Cast or Splint Care, Adult, Fall Prevention in the Home, Radial Head Fracture, RICE for Routine Care of Injuries. - Prescriptions for Mobic 7.5 mg Oral Tablet - take 1 tablet by ORAL route once daily take with food; 20 tablet. Tylenol- Codeine #3 300-30 mg Oral Tablet - take 2 tablets by ORAL route every 6 hours As needed; 14 tablet. - Medication Reconciliation Form, Thank You Letter, Antibiotic Education, Prescription Opioid Use form. - Follow up: Emergency Department; When: As needed; Reason: Worsening of condition. Follow up: Private Physician; When: As needed; Reason: Recheck today's complaints, Continuance of care, Re-evaluation by your physician. Follow up: Yifan Hall MD; When: 2 - 3 days; Reason: Recheck today's complaints, Continuance of care. Signatures: Dispatcher [employer] Yifan Watson, RN Igor Truong MD MD cha Therrien, Shelly, RETAIL REPRESENTATIVE-C RETAIL REPRESENTATIVE-Csnw Vangie Alfaro RN RN bb Corrections: (The following items were deleted from the chart) 08:47 08:21 05/16/2019 08:21 Discharged to Home. Impression: Fall on same level from sg slipping, tripping and stumbling; NONDISPLACED FRACTURE OF RADIAL HEAD. Condition is Stable. Forms are Medication Reconciliation Form, Thank You Letter, Antibiotic Education, Prescription Opioid Use. Follow up: Emergency Department; When: As needed; Reason: Worsening of condition. Follow up: Private Physician; When: As needed; Reason: Recheck today's complaints, Continuance of care, Re-evaluation by your physician. Follow up: Yifan Hall; When: 2 - 3 days; Reason: Recheck today's complaints, Continuance of care. w
[2019-05-16 08:59] VITALS: TEMP 97.9; O2SAT 98
[2019-05-16 09:01] VITALS: BP 107/70
--- NOTE | 2019-05-16 10:15 | RAD REPORT ---
EXAM DESCRIPTION: RAD - Elbow Right 3 View - 05/16/2019 7:38 am CLINICAL HISTORY: SMASH INJURY, elbow pain, patient unable to extend COMPARISON: No comparisons FINDINGS: No dislocation or periosteal reaction seen. No gross fracture deformity seen. Assessment o f the radial head is considered limited. Radial head fracture cannot be excluded. Distal humerus and proximal ulna appear intact. No foreign body or other soft tissue abnormality. No other significant f inding. IMPRESSION: Right elbow is not grossly abnormal. There is no dislocation. Radial head assessment is considered limited in a radial head fracture is not excluded.
--- NOTE | 2019-05-16 10:51 | RAD REPORT ---
EXAM DESCRIPTION: RAD - Forearm Right - 05/16/2019 8:19 am CLINICAL HISTORY: PAIN, trip and fall, elbow pain COMPARISON: No comparisons FINDINGS: Radial head is slightly better imaged on this examination than on the elbow examination. M inimally impacted radial head fracture is strongly suspected. No fracture or involving the articular surface. This is a transverse fracture at the diaphyseal metaphyseal junction. Remainder the radius i s intact. Ulna is intact. No foreign body or other soft tissue abnormality. IMPRESSION: Right radial head fracture as detailed.
== END 2019-05-16 08:47 | disposition home or self-care (01) ==
LOC: ER 05:54
PROC: 2W3CX1Z Immobilization of Right Lower Arm using Splint (ICD-10-PCS; principal; 2019-05-16)
DX: S52.121A Displaced fracture of head of right radius, initial encounter for closed fracture (principal); W01.0XXA Fall on same level from slipping, tripping and stumbling without subsequent striking against object, initial encounter; Y93.79 Activity, other specified sports and athletics; Y92.9 Unspecified place or not applicable
CPT/HCPCS: 73080; 73090; 96372; 99284; 29125; J3010

== ENCOUNTER 2019-12-01 17:58 | Observation (INO) | payer BC ==
--- OUTSIDE RECORDS SUMMARY | 2019-12-01 18:00 | XMS REPORT | Continuity of Care Document ---
:1985 Author Organization [facility] t Address [address] [place] [address] Care Team Providers Name Role Phone Daylin Escamilla MD Primary Care Physician Hong OLGUIN, E. Attending Clinician Odilon FERRER Attending Clinician Unavailable Aubree OLGUIN, L Attending Clinician Payers Payer Name Policy Type Policy Number Effective Date Expiration Date S mayito [id number] xxxxxxxxxxxx 2018 [place] CHOICE 00:00:00 [facility] PPO/[employer] PPOxxxxxxxxxxx 2018-Pres entPPO Problems Condition Condition Condition Status Onset Resolution Last Treating Co mments Source Name Details Category Date Date Treatment Clinician Date Elbow Elbow Disease Active [place] stiffness, stiffness, 3-30 Me thodi right right 00:00: st 00 Closed Closed Disease Active [place] displaced displaced 2-07 Meth oksana fracture fracture 00:00: st of neck of of neck of 00 right right radius radius Placenta Placenta Disease Active [place] accreta accreta 8-10 [facility] 00:00: st 00 Pelvic Pelvic Disease Active [place] infection infection 8-10 Meth oksana in female in female 00:00: st 00 Grief at Grief at Disease Active [place] loss of loss of 8-10 [facility] child child 00:00: st 00 Allergies, Adverse Reactions, Alerts Allergy Allergy Status Severity Reaction(s) Onset Inactive Treating Comm ents Source Name Type Date Date Clinician No Known DA Active [facility] Allergie 10-02 Clear s 00:00: [place] 00 [facility] Social History Social Habit Start Date Stop Date Quantity Comments Source Sex Assigned At [facility] Medications Ordered Filled Start Stop Current Ordering Indication Dosage Frequency Signature Comments Components Source Medication Medication Date Date Medication? Clinician (SIG) Name Name enoxaparin Yes 1mg/kg Q.5D Inject 1 [place] (LOVENOX) 4-27 mg/kg [facility] 60 mg/0.6 15:34: under the st mL syringe 38 skin 2 (two) times a day. HYDROcodone Yes 1{tbl} Q6H Take 1 Ho juan francisco -acetaminop 8-10 tablet by Met joanne chance (NORCO) 12:44: mouth st 7.5-325 mg 17 every 6 per tablet (six) hours as needed for moderate pain. traMADol Yes TK 1 T PO [place] (ULTRAM) 50 7-13 Q 4 H [facility] mg tablet 00:00: st 00 cefuroxime Yes TK 1 T PO Sterling chicas (CEFTIN) 7-13 BID [facility] 500 MG 00:00: st tablet 00 ibuprofen Yes TK 1 T PO [place] (ADVIL,MOTR 7-13 Q 6 H PRN Met joanne HOWARD) 600 MG 00:00: st tablet 00 HYPERRHO Yes INJ IM [place] S/D 1,500 6-09 NOW. [facility] unit (300 00:00: st mcg) 00 syringe Vital Signs Vital Name Observation Time Observation Value Comments Source Body height 2019-08-04 15:34:00 157.5 cm Jamil Rojas Body weight 2019-08-04 15:34:00 57.153 kg Jamil Rojas BMI 2019-08-04 15:34:00 23.05 kg/m2 [place] [facility] Procedures This patient has no known procedures. Plan of Care Planned Activity Planned Date Details Comments Source Future Scheduled 2020-01-08 INFLUENZA VACCINE Karri strange [facility] Test 00:00:00 [code = INFLUENZA VACCINE] Future Scheduled 2004-09-23 Screening for [facility]odist Test 00:00:00 malignant neoplasm of cervix (procedure) [code = 806145042] Encounters Start End Encounter Admission Attending Care Care Encounter Source Date/Time Date/Time Type Type Clinicians Facility Department ID 2019-08-04 2019-08-04 Outpatient AMADOR CASEY [facility] [id number] [place] 00:00:00 00:00:[address] 2019-07-07 2019-07-07 [facility] [id number] [place] 00:00:00 00:00:[address] 2019-05-16 2019-05-16 Office LAY Mak [id number] 09:44:57 10:36:48 Visit [facility] [id number] Surgical [id number] Specialti [id number] 198 [place] Results This patient has no known results.
--- OUTSIDE RECORDS SUMMARY | 2019-12-01 18:00 | XMS REPORT | Clinical Summary ---
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/17/2015 Pelvic infection in female 11/17/2015 Grief at loss of child 11/17/2015 Encounters Date Type Specialty Care Team Description 08/05/2019 Travel 08/04/2019 Telemedicine Orthopedic Surgery Harshil Pitts MD Clos ed displaced fracture of nec k of right radius wi th routine healing , subsequent enco unter (Primary Dx) 07/07/2019 Telemedicine Orthopedic Surgery Harshil Pitts MD Clos ed displaced fracture of neck of right radius, initial encounter (Primary Dx); Elbow stiffness , right 07/07/2019 Orders Only Orthopedic Surgery Marylu Donald MA Madeline sed displaced fracture of nec k of right radius wi th routine healing , subsequent enco unter (Primary Dx) 07/07/2019 Travel after 11/30/2018 Social History Tobacco Use Types Packs/Day Years Used Date Never Assessed Sex Assigned at Date Recorded Not on file Job Start Date Occupation Industry Not on file Not on file Not on file Travel History Travel Start Travel End No recent travel history available. Last Filed Vital Signs Vital Sign Reading Time Taken Comments Blood Pressure - - Pulse - - Temperature - - Respiratory Rate - - Oxygen Saturation - - Inhaled Oxygen Concentration - - Weight 57.2 kg (126 lb) 08/04/2019 3:34 PM CDT Height 157.5 cm (5' 2") 08/04/2019 3:34 PM CDT Body Mass Index 23.05 08/04/2019 3:34 PM CDT Plan of Treatment Health Maintenance Due Date Last Done Comments CERVICAL CANCER SCREENING 09/23/2004 INFLUENZA VACCINE 01/08/2020 Results Not on fileafter 11/30/2018 Advance Directives For more information, please contact: [phone] Type Date Recorded Patient Head Baggage Porter Explanati on Advance Directives, Living Will and Medical Power of Hotel Service Supervisor
[2019-12-01 19:11] LABS: Absolute Lymphocytes (CBC) 1.8 K/uL (0.7-4.9); Basophils % 0.3 % (0-1.3); Hematocrit 38.3 % (36.0-45.0); Lymphocytes % 13.7 % (15.3-44.8)
[2019-12-01 19:13] LABS: Protime INR 0.97
[2019-12-01] MEDS ORDERED: ONDANSETRON 4 MG/2 ML VIAL ONE (19:13)
[2019-12-01] MEDS ORDERED: MORPHINE 4 MG/ML SYR ONE ×2 (19:13→21:02)
[2019-12-01 19:30] LABS: ALT/SGPT 22 U/L (12-78); AST/SGOT 16 U/L (15-37); Alkaline Phosphatase 101 U/L (45-117); BUN Blood Urea Nitrogen 12 mg/dL (7-18); Bicarbonate 29 mmol/L (21-32); Bilirubin Direct 0.1 mg/dL (0-0.2); Bilirubin Total 0.3 mg/dL (0.2-1.0); Glucose Level 94 mg/dL (74-106); NT PRO-BNP 29 pg/mL (<125); Protein, Total 7.7 g/dL (6.4-8.2); Sodium Level 143 mmol/L (136-145); Troponin (Emerg Dept Use Only) < 0.02 ng/mL (0.0-0.045)
--- NOTE | 2019-12-01 19:34 | RAD REPORT ---
EXAM DESCRIPTION: CT - Chest For Pe Angio - 12/01/2019 7:25 pm CLINICAL HISTORY: Chest pain COMPARISON: 2018 TECHNIQUE: Dynamically enhanced axial 3 mm thick images of the chest were obtained during administra tion of <100> mL Isovue 370 IV contrast. Coronal and oblique reconstruction images were generated and reviewed. Exam utilizes a protocol for optimal evaluation of pulmonary arterial tree. Maximum intensity projections 3D imaging was utilized All CT scans are performed using dose optimization technique as appropriate and may include automated exposure control or mA/KV adjustment according to patient size. FINDINGS: Large amount of thrombus is present within right lower lobe pulmonary arteries. No thrombu s is seen within left pulmonary artery, main right and left main pulmonary arteries. 5 centimeter right lower lobe peripheral opacity consistent with infarction A thoracic aortic aneurysm is not noted. A pleural effusion is not seen. A pericardial effusion is not seen. A lung consolidation is not present. IMPRESSION: Large amount of right lower lobe pulmonary embolus
--- NOTE | 2019-12-01 20:03 | EDPHYS ---
Physician Documentation [facility] Name: Elizabeth Britton Age: 34 yrs Sex: Female : 1985 Arrival Date: 12/01/2019 Time: 17:59 Bed 5 Private MD: ED Physician Epifanio James HPI: 11/30 18:47 This 34 yrs old Female presents to ER via Ambulatory with complaints of Chest jmm Pain, Arm Pain. 18:47 The patient or guardian reports chest pain that is located primarily in the anterior jm chest wall, right. The pain radiates to the right arm. Associated signs and symptoms: Pertinent positives: shortness of breath. The chest pain is described as sharp. Duration: The patient or guardian reports a single episode, that is still ongoing. Modifying factors: The symptoms are alleviated by lifting right arm. This is a 34 year old female with a history of PE that presents to the ED with complaints of right sided chest pain beginning approx 1 week ago. Prescribed muscle relaxers by PCP with no relief. Recent breast augmentation surgery approx 1 month ago. Denies hemoptysis, leg swelling. . 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 - Social history:: Smoking status: Patient denies any tobacco usage or history of. Patient/guardian denies using alcohol, street drugs. ROS: 18:47 Constitutional: Negative for fever, chills, and weight loss. jmm 18:47 Cardiovascular: Positive for chest pain. 18:47 Respiratory: Positive for shortness of breath. 18:47 All other systems are negative. Exam: 18:47 Constitutional: This is a well developed, well nourished patient who is awake, alert, jmm and in no acute distress. Head/Face: atraumatic. Eyes: EOMI, no conjunctival erythema appreciated ENT: Moist Mucus Membranes Neck: Trachea midline, Supple Chest/axilla: Normal chest wall appearance and motion. Cardiovascular: Regular rate and rhythm. No edema appreciated Respiratory: Normal respirations, no respiratory distress appreciated Abdomen/GI: Non distended, soft Back: Normal ROM Skin: General appearance color normal MS/ Extremity: Moves all extremities, no obvious deformities appreciated, no edema noted to the lower extremities Neuro: Awake and alert, normal gait Psych: Behavior is normal, Mood is normal, Patient is cooperative and pleasant Vital Signs: 18:16 BP 115 / 98; Pulse 115; Resp 18; Temp 99.4; Pulse Ox 97% ; Weight 72.57 kg; Height 5 ll1 ft. 2 in. (157.48 cm); Pain 6/10; 18:45 BP 121 / 98; Pulse 115; Resp 18; Pulse Ox 98% on 2 lpm NC; em 19:30 BP 132 / 91; Pulse 100; Resp 21; Pulse Ox 100% ; Pain 5/10; mt2 20:30 BP 122 / 91; Pulse 109; Resp 17; Pulse Ox 100% on 2 lpm NC; Pain 10/10; mt2 21:30 BP 127 / 87; Pulse 120; Resp 20; Pulse Ox 97% on 3 lpm NC; Pain 10/10; mt2 22:30 BP 101 / 79; Pulse 109; Resp 17; Pulse Ox 100% on 2 lpm NC; Pain 5/10; mt2 18:16 Body Mass Index 29.26 (72.57 kg, 157.48 cm) ll1 MDM: 18:38 Patient medically screened. [facility] 20:00 Data reviewed: vital signs, nurses notes, lab test result(s), EKG, radiologic studies. [facility] ED course: I discussed the patient with Julio Beard PA-C whom accepted the patient to Dr. Justin whitley. . 11/30 18:45 Order name: Basic Metabolic Panel; Complete Time: 19:35 [facility] 11/30 18:45 Order name: CBC with Diff; Complete Time: 19:35 [facility] 11/30 18:45 Order name: LFT's; Complete Time: 19:35 [facility] 11/30 18:45 Order name: Magnesium; Complete Time: 19:35 [facility] 11/30 18:45 Order name: NT PRO-BNP; Complete Time: 19:35 [facility] 11/30 18:45 Order name: PT-INR; Complete Time: 19:35 [facility] 11/30 18:45 Order name: Troponin (emerg Dept Use Only); Complete Time: 19:35 [facility] 11/30 20:46 Order name: Basic Metabolic Panel EDMS 11/30 20:46 Order name: Basic Metabolic Panel EDMS 11/30 20:47 Order name: Urinalysis EDRI 11/30 20:47 Order name: CBC with Automated Diff EDMS 11/30 20:47 Order name: CBC with Automated Diff EDMS 11/30 20:47 Order name: Magnesium EDMS 11/30 20:47 Order name: Magnesium EDMS 11/30 18:45 Order name: CT Chest For PE Angio; Complete Time: 19:38 [facility] 11/30 20:47 Order name: Protime (+INR) EDMS 11/30 20:47 Order name: Protime (+INR) EDMS 11/30 20:47 Order name: PTT, Activated Partial Thromb EDMS 11/30 20:47 Order name: PTT, Activated Partial Thromb EDRI 11/30 20:47 Order name: Troponin I [facility] 11/30 20:47 Order name: Troponin I [facility] 11/30 20:47 Order name: Troponin I [facility] 11/30 20:47 Order name: Troponin I [facility] 11/30 20:47 Order name: Extrem Venous W Compress Cheikh [facility] 11/30 18:45 Order name: EKG; Complete Time: 18:46 [facility] 11/30 18:45 Order name: Cardiac monitoring; Complete Time: 19:09 [facility] 11/30 18:45 Order name: EKG - Nurse/Tech; Complete Time: 18:54 [facility] 11/30 18:45 Order name: IV Saline Lock; Complete Time: 19:09 [facility] 11/30 18:45 Order name: Labs collected and sent; Complete Time: 19:09 [facility] 11/30 18:45 Order name: O2 Per Protocol; Complete Time: 19:09 [facility] 11/30 18:45 Order name: O2 Sat Monitoring; Complete Time: 19:09 [facility] 11/30 20:41 Order name: CONS Physician Consult [facility] 11/30 20:47 Order name: Regular EDMS Administered Medications: 19:00 Drug: Zofran (Ondansetron) 4 mg Route: IVP; Site: left antecubital; em 19:30 Follow up: Response: No adverse reaction mt2 19:02 Drug: morphine 4 mg Route: IVP; Site: left antecubital; em 20:59 Follow up: Response: No adverse reaction; Nausea is decreased mt2 20:00 Drug: Lovenox 1 mg/kg Route: Sub-Q; Site: right lower abdomen; mt2 20:58 Follow up: Response: No adverse reaction mt2 20:58 Drug: morphine 4 mg Route: IVP; Site: left antecubital; mt2 21:15 Follow up: Response: No adverse reaction; Pain is unchanged, physician notified mt2 21:43 Drug: Valium 5 mg Route: IVP; Site: left antecubital; mt2 22:00 Follow up: Response: No adverse reaction; Pain is unchanged, physician notified mt2 22:10 Drug: fentaNYL (PF) 50 mcg Route: IVP; Site: left antecubital; mt2 22:29 Follow up: Response: No adverse reaction; Pain is unchanged, physician notified mt2 22:29 Drug: TORadol 30 mg Route: IVP; Site: left antecubital; mt2 23:05 Follow up: Response: No adverse reaction; Pain is decreased mt2 Disposition: 12/01 19:49 Co-signature as Attending Physician, Epifanio James MD I agree with the assessment and kdr plan of care. Disposition: 12/01/19 20:03 Hospitalization ordered by Chandrakant Anderson for Observation. Preliminary diagnosis is Pulmonary embolism. - Bed requested for Telemetry/MedSurg (observation). - Status is Observation. mt2 - Condition is Stable. - Problem is new. - Symptoms are unchanged. Signatures: Dispatcher [employer] Epifanio Castillo MD MD kdr Mickail, Joel, PA PA [facility] Edd Bella RN RN em Garcia, Cindy, RN RN Trena Abdul RN RN ll1 Karissa Shultz RN RN mt2 Corrections: (The following items were deleted from the chart) 11/30 21:52 20:03 Hospitalization Ordered by Chandrakant Anderson MD for Observation. Preliminary diagnosis is Pulmonary embolism. Bed requested for Telemetry/MedSurg (observation). Status is Observation. Condition is Stable. Problem is new. Symptoms are unchanged. [facility] 23:13 21:52 12/01/2019 20:03 Hospitalization Ordered by Chandrakant Anderson MD for Observation. mt2 Preliminary diagnosis is Pulmonary embolism. Bed requested for Telemetry/MedSurg (observation). Status is Observation. Condition is Stable. Problem is new. Symptoms are unchanged. cg
--- NOTE | 2019-12-01 20:03 | ER ---
Nurse's Notes [facility] 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 Noticed SOB past two days, but worse today with the pain. Has had PE, states it feels the same as that episode. Coronavirus screen: Client denies travel out of the [place] in the last 14 days. At this time, the client does not indicate any symptoms associated with coronavirus-19. Ebola Screen: Patient denies travel to an Ebola-affected area in the 21 days before illness onset. Initial Sepsis Screen: Does the patient meet any 2 criteria? HR > 90 bpm. Risk Assessment: Do you want to hurt yourself or someone else? Patient reports no desire to harm self or others. Onset of symptoms was December 01, 2019. 18:16 Method Of Arrival: Ambulatory ll1 18:16 Acuity: BE 3 ll1 22:45 Initial Sepsis Screen: Does the patient have a suspected source of infection? No. mt2 Patient's initial sepsis screen is negative. 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 - Social history:: Smoking status: Patient denies any tobacco usage or history of. Patient/guardian denies using alcohol, street drugs. Screenin:00 Abuse screen: Denies threats or abuse. Nutritional screening: No deficits noted. em Tuberculosis screening: No symptoms or risk factors identified. Fall Risk None identified. Assessment: 18:40 General: Appears in no apparent distress. comfortable, Behavior is calm, cooperative, em appropriate for age, Denies fever. Pain: Complains of pain in chest and right arm Pain does not radiate. Pain began 1 hour ago. Neuro: Level of Consciousness is awake, alert, obeys commands, Oriented to person, place, time, situation, Appropriate for age. Cardiovascular: Capillary refill < 3 seconds Patient's skin is warm and dry. Rhythm is sinus rhythm. Respiratory: Reports shortness of breath at rest Airway is patent Respiratory effort is even, unlabored, Respiratory pattern is regular, symmetrical, Denies cough. Derm: Skin is intact, is healthy with good turgor, Skin is pink, warm \T\ dry. Musculoskeletal: Capillary refill < 3 seconds, Range of motion: intact in all extremities. 19:30 Reassessment: Patient and/or family updated on plan of care and expected duration. Pain mt2 level reassessed. Patient is alert, oriented x 3, equal unlabored respirations, skin warm/dry/pink. General: Appears uncomfortable, Behavior is cooperative. 20:30 Reassessment: Patient and/or family updated on plan of care and expected duration. Pain mt2 level reassessed. Patient is alert, oriented x 3, equal unlabored respirations, skin warm/dry/pink. General: Appears distressed, Behavior is anxious. Pain: Complains of pain in chest Pain currently is 10 out of 10 on a pain scale. 20:45 Reassessment: PATIENT REFUSED TO BE COVID SWAB. EXPLAINED TO PATIENT THE HOSPITAL'S mt2 POLICY FOR ADMISSION. PT CONT TO REFUSED. CHARGE NURSE NOTIFIED AND PROVIDER WELL. 21:30 Reassessment: No changes from previously documented assessment. Patient and/or family mt2 updated on plan of care and expected duration. Pain level reassessed. Patient is alert, oriented x 3, equal unlabored respirations, skin warm/dry/pink. General: Appears distressed, Behavior is anxious. Pain: Complains of pain in chest Pain currently is 10 out of 10 on a pain scale. 22:51 Reassessment: Patient and/or family updated on plan of care and expected duration. Pain mt2 level reassessed. Patient is alert, oriented x 3, equal unlabored respirations, skin warm/dry/pink. General: Appears comfortable, Behavior is calm. Pain: Complains of pain in chest Pain currently is 5 out of 10 on a pain scale. Vital Signs: 18:16 BP 115 / 98; Pulse 115; Resp 18; Temp 99.4; Pulse Ox 97% ; Weight 72.57 kg; Height 5 ll1 ft. 2 in. (157.48 cm); Pain 6/10; 18:45 BP 121 / 98; Pulse 115; Resp 18; Pulse Ox 98% on 2 lpm NC; em 19:30 BP 132 / 91; Pulse 100; Resp 21; Pulse Ox 100% ; Pain 5/10; mt2 20:30 BP 122 / 91; Pulse 109; Resp 17; Pulse Ox 100% on 2 lpm NC; Pain 10/10; mt2 21:30 BP 127 / 87; Pulse 120; Resp 20; Pulse Ox 97% on 3 lpm NC; Pain 10/10; mt2 22:30 BP 101 / 79; Pulse 109; Resp 17; Pulse Ox 100% on 2 lpm NC; Pain 5/10; mt2 18:16 Body Mass Index 29.26 (72.57 kg, 157.48 cm) 1 ED Course: 17:59 Patient arrived in ED. ds1 18:18 Triage completed. 1 18:19 Arm band placed on. [facility] 18:24 Guanaco Lyman PA is PHCP. [facility] 18:24 Epifanio James MD is Attending Physician. [facility] 18:28 Edd Bella, RN is Primary Nurse. em 18:53 EKG done, by ED staff, reviewed by Guanaco FRENCH. 3 19:00 Patient has correct armband on for positive identification. Placed in gown. Bed in low em position. Call light in reach. playground monitor on. Pulse ox on. NIBP on. 19:00 Initial lab(s) drawn, by [facility], sent to lab. Inserted saline lock: 20 gauge in left em antecubital area, using aseptic technique. Blood collected. Patient maintains SpO2 saturation greater than 95% on room air. 19:25 CT Chest For PE Angio In Process Unspecified. EDMS 19:36 Primary Nurse role handed off by Edd Bella, GURMEET mt2 19:36 Karissa Shultz, GURMEET is Primary Nurse. mt2 20:03 Chandrakant Anderson MD is Hospitalizing Provider. [facility] 22:45 No provider procedures requiring assistance completed. Patient admitted, IV remains in mt2 place. Administered Medications: 19:00 Drug: Zofran (Ondansetron) 4 mg Route: IVP; Site: left antecubital; em 19:30 Follow up: Response: No adverse reaction mt2 19:02 Drug: morphine 4 mg Route: IVP; Site: left antecubital; em 20:59 Follow up: Response: No adverse reaction; Nausea is decreased mt2 20:00 Drug: Lovenox 1 mg/kg Route: Sub-Q; Site: right lower abdomen; mt2 20:58 Follow up: Response: No adverse reaction mt2 20:58 Drug: morphine 4 mg Route: IVP; Site: left antecubital; mt2 21:15 Follow up: Response: No adverse reaction; Pain is unchanged, physician notified mt2 21:43 Drug: Valium 5 mg Route: IVP; Site: left antecubital; mt2 22:00 Follow up: Response: No adverse reaction; Pain is unchanged, physician notified mt2 22:10 Drug: fentaNYL (PF) 50 mcg Route: IVP; Site: left antecubital; mt2 22:29 Follow up: Response: No adverse reaction; Pain is unchanged, physician notified mt2 22:29 Drug: TORadol 30 mg Route: IVP; Site: left antecubital; mt2 23:05 Follow up: Response: No adverse reaction; Pain is decreased mt2 Outcome: 20:03 Decision to Hospitalize by Provider. [facility] 22:45 Admitted to mt2 22:45 Condition: stable 22:45 Instructed on the need for admit. 23:07 Admitted to Med/surg accompanied by tech, room 405, Report called to MEGHAN PENA mt2 23:13 Patient left the ED. me2 Signatures: Dispatcher [employer] EDMS Guanaco Lyman PA PA jmm Munoz, Edgar, RN RN Gemini Foster 1 Yolanda Ramos 3 Terna Abdul RN RN 1 Karissa Shultz RN RN mt2
[2019-12-01] MEDS ORDERED: ENOXAPARIN 80 MG/0.8 ML SQ ONE (20:09)
--- NOTE | 2019-12-01 20:59 | P.HP ---
Certification for Inpatient Patient admitted to: Observation With expected LOS: <2 Midnights Patient will require the following post-hospital care: None Practitioner: I am a practitioner with admitting privileges, knowledge of patient current condition, hospital course, and medical plan of care. Services: Services provided to patient in accordance with Admission requirements found in Title 42 Section 412.3 of the Code of Federal Regulations <Julio Beard - Last Filed: 12/01/19 20:51> Patient History Date of Service: 12/01/19 Primary Care Provider: Dr. BOONE Reason for admission: Right lower lobe pulmonary embolism History of Present Illness: 34-year-old female with a past medical history of pulmonary embolisms secondary to complications of presents to the emergency room complaining of right upper lung/shoulder pain with inspiration. Also complaining of chest pain in same area. Patient states that it feels identical to when she had a pulmonary embolism during her 5 years ago. Describes chest pain as sharp. States that it started approximately 1 week ago and is somewhat worse. Patient states she had breast augmentation approximately 1 week ago. Patient states that when she had her last pulmonary embolism she was on Lovenox injections for approximately 2 years. Currently is not on a medications for PE. Also complaining of a headache. On physical exam patient is alert and oriented x3 in no distress. She is on 2 L nasal cannula and does not wear oxygen at home. Does not smoke and denies any medical history. States she had breast augmentation approximately 1 month ago. States that she started to feel some chest pressure in her right upper lungs/pao st that has progressively worsened. Described the pain today as a stabbing pain. States that it feels just like when she had a blood clot during her . Denies any pain in the lower extremities or swelling in the lower extremities. Patient be placed in observation and further evaluated. Home medications list reviewed: No - Past Medical/Surgical History Diabetic: No -: hx of b/l Pulmonary embolism 2013 -: collapsed lung 2006 -: c/s x4 2007 -: Breast augmentation October 2019 Psychosocial/ Personal History: Lives at home - Family History Mother -: Lung disease, Other (see notes) Notes: pulmonary embolism - Social History Smoking Status: Never smoker Alcohol use: No CD- Drugs: No Caffeine use: Yes Place of Residence: Home <Julio Beard - Last Filed: 12/01/19 20:51> Date of Service: 12/04/19 <Chandrakant Anderson - Last Filed: 12/04/19 20:36> Allergies No Known Drug Allergies Allergy (Verified 04/02/14 20:59) Unknown No Known Allergies Allergy (Uncoded 07/11/17 04:04) Unknown Home Medications: Acetaminophen [Tylenol Extra Strength] 500 mg PO Q4HP PRN 12/02/19 Apixaban [Eliquis] 5 mg PO DIRECTED 30 Days #70 tab 12/03/19 Lidocaine 4% Patch [Lidoderm 5% Patch*] 2 patch TOP DAILY PRN 7 Days #14 patch 12/04/19 Topiramate [Topamax*] 25 mg PO BEDTIME 30 Days #30 tab 12/04/19 Tramadol HCl 100 mg PO Q6HP PRN 6 Days #24 tablet 12/04/19 Review of Systems General: As per HPI Eyes: Unremarkable ENT: Unremarkable Respiratory: Other (Right upper chest/lung pain with inspiration), As per HPI Cardiovascular: Chest Pain, As per HPI Gastrointestinal: Unremarkable Genitourinary: Unremarkable Musculoskeletal: Shoulder Pain (Right ), As per HPI Integumentary: Unremarkable Neurological: Unremarkable <OrenJulio mora - Last Filed: 12/01/19 20:51> Physical Examination - Vital Signs Temperature: 99.4 F Blood Pressure: 115/98 Pulse: 115 Respirations: 18 Pulse Ox (%): 98 (2L NC) - Physical Exam General: Alert, In no apparent distress, Oriented x3 HEENT: Atraumatic, Normocephalic, PERRLA Neck: Supple, No Thyromegaly, Other (Trachea midline) Respiratory: Clear to auscultation bilaterally, Diminished Cardiovascular: No edema, Normal pulses Capillary refill: <2 Seconds Gastrointestinal: Normal bowel sounds, Soft and benign, Non-distended Musculoskeletal: No clubbing, No swelling, No contractures, No erythema Integumentary: No rashes, No breakdown, No significant lesion, No tenderness/swelling Neurological: Normal gait, Normal speech, Normal strength at 5/5 x4 extr, Normal tone - Studies Laboratory Data (last 24 hrs) 12/01/19 19:00: PT 11.5, INR 0.97 12/01/19 19:00: WBC 12.8 H, Hgb 12.7, Hct 38.3, Plt Count 348 12/01/19 19:00: Sodium 143, Potassium 4.0, BUN 12, Creatinine 0.68, Glucose 94, Magnesium 2.0, Total Bilirubin 0.3, AST 16, ALT 22, Alkaline Phosphatase 101 <Julio Beard - Last Filed: 12/01/19 20:51> Assessment and Plan - Plan Impression: Right lower lobe pulmonary embolism: Chest pain: Plan: Right lower lobe pulmonary embolism: Patient has a history of pulmonary embolisms in the past during her 5 years ago. Was on Lovenox shots for 2 years after . CTA shows large right lower lung pulmonary embolism. Will consult pulmonology. Continue Lovenox 1 milligram/kilogram b.i.d. Chest pain: Troponins negative x1. Will place on continuous telemetry. Continue to trend troponins. Likely secondary to pulmonary embolism. Patient has no cardiac history. Discharge Plan: Home Plan to discharge in: 48 Hours - Advance Directives Does patient have a Living Will: No Does patient have a Durable POA for Healthcare: No - Code Status/Comfort Care Code Status Assessed: Yes Time Spent Managing Pts Care (In Minutes): 55 <Julio Beard - Last Filed: 12/01/19 20:51> Physician Review Additional Text: I reviewed the plan of care for this patient on 12/01/19 by Julio Beard, and I agree with the management as noted above. <Chandrakant Anderson - Last Filed: 12/04/19 20:36>
[2019-12-01] MEDS ORDERED: ENOXAPARIN 40 MG/0.4 ML SQ SCH (21:00)
[2019-12-01] MEDS ORDERED: DIAZEPAM 10 MG/2 ML INJ SYRINGE ONE (21:39)
[2019-12-01] MEDS ORDERED: FENTANYL CITR 100 MCG/2 ML ONE (22:16)
[2019-12-01] MEDS ORDERED: KETOROLAC 30 MG/ML INJ ONE (22:31)
[2019-12-01] MEDS: HYDROCODONE/APAP 10/325 TAB PO PRN (23:45)
[2019-12-02 00:12] VITALS: BMI 29.4
[2019-12-02] MEDS ORDERED: MORPHINE 2 MG/ML SYR IV ONE (02:35)
[2019-12-02] MEDS ORDERED: NA CHLORIDE 0.9% 500 ML ONE (02:58)
[2019-12-02] MEDS ORDERED: NA CHLORIDE 0.9% 500 ML IV ONE (03:01)
[2019-12-02] MEDS: HYDROCODONE/APAP 10/325 TAB PO PRN ×4 (03:45→22:23)
[2019-12-02 03:58] LABS: Absolute Lymphocytes (CBC) 2.3 K/uL (0.7-4.9); Basophils % 1.5 % (0-1.3); Hematocrit 33.9 % (36.0-45.0); Lymphocytes % 20.1 % (15.3-44.8); MPV 8.4 fL (7.6-11.3); RBC Red Blood Cell Count 3.97 M/uL (3.86-4.86)
[2019-12-02] MEDS ORDERED: NA CHLORIDE 0.9% 1,000 ML IV SCH ×2 (04:00)
[2019-12-02 04:01] LABS: Protime INR 1.05
[2019-12-02 04:12] LABS: BUN Blood Urea Nitrogen 12 mg/dL (7-18); Bicarbonate 29 mmol/L (21-32); Glucose Level 86 mg/dL (74-106); Magnesium 1.9 mg/dL (1.8-2.4); Sodium Level 141 mmol/L (136-145)
[2019-12-02] MEDS: ENOXAPARIN 80 MG/0.8 ML SQ SCH ×2 (08:17→20:21)
--- NOTE | 2019-12-02 08:40 | P.CNS ---
Date of Consult: 12/02/19 Reason for Consult: Pulmonary embolism Primary Care Provider: Dr. BOONE Chief Complaint: Right lower lobe pulmonary embolism History of Present Illness: The patient is 34 years of age admitted with sudden onset of right-sided pleuritic chest pain been complaining of some neck pain recently in was on muscle relaxants was found to have pulmonary embolism on the right lung pain started about a week ago she also had breast augmentation procedure done about a week ago was well prior history of pulmonary embolism appears to be comfortable low blood pressure. I suspect is from the medications not feeling short of breath Allergies No Known Drug Allergies Allergy (Verified 04/02/14 20:59) Unknown No Known Allergies Allergy (Uncoded 07/11/17 04:04) Unknown Home Medications: Acetaminophen [Tylenol Extra Strength] 500 mg PO Q4HP PRN 12/02/19 Apixaban [Eliquis] 5 mg PO DIRECTED 30 Days #70 tab 12/03/19 Rivaroxaban [Xarelto] 1 each PO DIRECTED 30 Days #1 tab.ds.pk 12/03/19 - Past Medical/Surgical History Diabetic: No -: hx of b/l Pulmonary embolism 2013 -: collapsed lung 2006 -: c/s x4 2007 -: Breast augmentation October 2019 -: hysterectomy Psychosocial/ Personal History: Lives at home - Family History Mother Medical History: Lung disease, Other (see notes) Notes: pulmonary embolism - Social History Alcohol use: No CD- Drugs: No Caffeine use: No Place of Residence: Home Review of Systems 10-point ROS is otherwise unremarkable General: Weakness Respiratory: Shortness of Breath Cardiovascular: Chest Pain Physical Examination Temp Pulse Resp BP Pulse Ox 96.0 F L 74 16 82/54 L 100 12/02/19 04:00 12/02/19 04:00 12/02/19 04:45 12/02/19 05:29 12/02/19 04:45 General: Alert, Oriented x3 HEENT: Atraumatic Neck: Supple Respiratory: Clear to auscultation bilaterally, Friction rub Cardiovascular: Normal S1 S2 Gastrointestinal: Normal bowel sounds, Soft and benign Laboratory Data (last 24 hrs) 12/01/19 19:00: PT 11.5, INR 0.97 12/01/19 19:00: WBC 12.8 H, Hgb 12.7, Hct 38.3, Plt Count 348 12/01/19 19:00: Sodium 143, Potassium 4.0, BUN 12, Creatinine 0.68, Glucose 94, Magnesium 2.0, Total Bilirubin 0.3, AST 16, ALT 22, Alkaline Phosphatase 101 - Problems (1) Pulmonary embolism Current Visit: Yes Status: Acute Plan: Patient is 34 years of age admitted with acute pulmonary embolism recent history of breast augmentation surgery she is at thromboembolism before upper tension is probably secondary due to side effect of the narcotics in the Valium that was administered in the emergency room chemistries review CT scan reviewed patient to remain on lifelong anticoagulation on some blood pressure is stable can be changed to p.o. Xarelto or Eliquis Qualifiers: Acute cor pulmonale presence: unspecified
[2019-12-02] MEDS: NA CHLORIDE 0.9% 1,000 ML IV SCH ×4 (09:02→20:21)
[2019-12-02] MEDS: HYDROCODONE/APAP 5/325 MG TAB PO PRN ×2 (09:02→12:53)
[2019-12-02] MEDS: KETOROLAC 30 MG/ML INJ IV PRN ×2 (09:58→17:56)
--- NOTE | 2019-12-02 10:44 | EKG ---
Test Date: 2019-12-01 Test Time: 18:53:15 Skiing Teacher: KEYLA MEASUREMENT RESULTS: Intervals: Rate: 112 HI: 128 QRSD: 68 QT: 328 QTc: 447 Reyno: P: 70 HI: 128 QRS: 58 T: 64 INTERPRETIVE STATEMENTS: Sinus tachycardia Otherwise normal ECG Compared to ECG 05/16/2018 13:48:48 Sinus rhythm no longer present Sinus arrhythmia no longer present Atrial abnormality no longer present Electronically Signed On 12-02-19 10:43:22 CDT by Joseluis Hall
[2019-12-02] MEDS: LIDOCAINE 4% PATCH TOP SCH (12:15)
[2019-12-02 12:20] LABS: Urine Appearance CLOUDY; Urine Bilirubin NEGATIVE (NEG); Urine Blood NEGATIVE (NEG); Urine Color DK YELLOW; Urine Glucose NEGATIVE (NEG); Urine Protein TRACE (NEG); Urine Specific Gravity >=1.030 (1.005-1.030)
[2019-12-02 12:34] LABS: Urine Microscopic Reflex ORDER UMIC
[2019-12-02 12:49] LABS: Urine Bacteria >50 /HPF (<20); Urine Culture Reflex Order NOT NEEDED; Urine Mucus HEAVY /HPF (NONE SEEN); Urine RBC <5 /HPF (NONE SEEN)
--- NOTE | 2019-12-02 19:13 | P.PN ---
Subjective Date of Service: 12/02/19 Primary Care Provider: Dr. BOONE Chief Complaint: Right lower lobe pulmonary embolism seen in AM. patient reports pain is starting to creep back up, otherwise feels ok, denies fevers/chills, abdominal pain, dysuria Review of Systems General: Unremarkable Eyes: Unremarkable ENT: Unremarkable Respiratory: Other (SOB due to pain on inspiration) Cardiovascular: Chest Pain Gastrointestinal: Unremarkable Genitourinary: Unremarkable Musculoskeletal: Unremarkable Neurological: Unremarkable Physical Examination - Vital Signs Temperature: 96.9 F Blood Pressure: 107/79 Pulse: 78 Respirations: 18 Pulse Ox (%): 100 - Physical Exam General: Mild distress HEENT: Mucous membr. moist/pink, EOMI Neck: Supple, No Thyromegaly Respiratory: Diminished (RLL, otherwise Clear to auscultation) Cardiovascular: Regular rate/rhythm, Normal S1 S2 Capillary refill: <2 Seconds Gastrointestinal: Normal bowel sounds, Soft and benign, Non-distended Musculoskeletal: No erythema Integumentary: No rashes, No breakdown Neurological: Normal speech, Normal affect - Studies Laboratory Data (last 24 hrs) 12/01/19 19:00: PT 11.5, INR 0.97 12/01/19 19:00: WBC 12.8 H, Hgb 12.7, Hct 38.3, Plt Count 348 12/01/19 19:00: Sodium 143, Potassium 4.0, BUN 12, Creatinine 0.68, Glucose 94, Magnesium 2.0, Total Bilirubin 0.3, AST 16, ALT 22, Alkaline Phosphatase 101 Assessment & Plan Physician Review Additional Text: Right lower lobe pulmonary embolism: Chest pain: Hypotension Right lower lobe pulmonary embolism: -Patient has a history of pulmonary embolisms in the past during her 5 years ago. Was on Lovenox shots for 2 years after . -CTA shows large right lower lung pulmonary embolism. -consulted pulm - appreciate assistance -continue Lovenox for now, will check pricing on xarelto/eliquis, will need lifelong anticoagulation Chest pain: -troponins negative, likely secondary to PE, pt w/o cardiac history Hypotension -pt with BP 77-80s/60-70s this morning, asymptomatic -likely secondary to opioids / pain meds received in ED -pt also reports a baseline low BP -given 500ml NS bolus with slight improvement -will monitor closely Dispo: anticipate dc home tomorrow Time Spent Managing Pts Care (In Minutes): 40
[2019-12-02] MEDS ORDERED: ONDANSETRON 4 MG/2 ML VIAL IV PRN (21:40)
[2019-12-02] MEDS ORDERED: CYCLOBENZAPRINE 10 MG TAB PO ONE (23:22)
[2019-12-03] MEDS: HYDROCODONE/APAP 10/325 TAB PO PRN ×5 (01:53→18:45)
[2019-12-03] MEDS: KETOROLAC 30 MG/ML INJ IV PRN (02:34)
[2019-12-03] MEDS: NA CHLORIDE 0.9% 1,000 ML IV SCH ×5 (02:35→20:43)
[2019-12-03 04:42] LABS: BUN Blood Urea Nitrogen 7 mg/dL (7-18); Bicarbonate 26 mmol/L (21-32); Glucose Level 114 mg/dL (74-106); Potassium 3.9 mmol/L (3.5-5.1); Sodium Level 143 mmol/L (136-145)
[2019-12-03] MEDS ORDERED: POTASSIUM CL SA 10 MEQ TAB PO ONE ×2 (05:08→09:00)
[2019-12-03] MEDS: ENOXAPARIN 80 MG/0.8 ML SQ SCH ×2 (08:33→20:44)
[2019-12-03] MEDS: LIDOCAINE 4% PATCH TOP SCH ×3 (08:33→16:00)
--- NOTE | 2019-12-03 08:36 | ECHO ---
HEIGHT: 5 ft 2 in WEIGHT: 161 lb 0 oz DATE OF STUDY: 12/02/[address]: Hernando Dailey MD 2-DIMENSIONAL: YES M.MODE: YES DOPPLER: YES COLOR FLOW: YES TDS: NO PORTABLE: NO DEFINITY: NO BUBBLE STUDY: NO DIAGNOSIS: PULMONARY EMBOLUS CARDIAC HISTORY: CATHERIZATION: NO SURGERY: NO PROSTHETIC VALVE: NO PACEMAKER: NO MEASUREMENTS (cm) DIASTOLIC (NORMALS) SYSTOLIC (NORMALS) IVSd 0.9 (0.6-1.2) LA Diam 2.8 (1.9-4.0) LVEF 64% LVIDd 4.0 (3.5-5.7) LVIDs 2.6 (2.0-3.5) %FS 34% LVPWd 0.8 (0.6-1.2) Ao Diam 2.6 (2.0-3.7) 2 DIMENSIONAL ASSESSMENT: RIGHT ATRIUM: NORMAL LEFT ATRIUM: NORMAL RIGHT VENTRICLE: NORMAL LEFT VENTRICLE: NORMAL TRICUSPID VALVE: NORMAL MITRAL VALVE: NORMAL PULMONIC VALVE: NORMAL AORTIC VALVE: NORMAL PERICARDIAL EFFUSION: NONE AORTIC ROOT: NORMAL LEFT VENTRICULAR WALL MOTION: NORMAL DOPPLER/COLOR FLOW: NORMAL COMMENTS: NORMAL 2D ECHOCARDIOGRAM WITH DOPPLER. NO PULMONARY HYPERTENSION. NO WALL MOTION ABNORMALITY. NO EFFUSION. TECHNOLOGIST: Alistair MARCANO
--- NOTE | 2019-12-03 11:49 | P.PN ---
Subjective Date of Service: 12/05/19 Primary Care Provider: Dr. BOONE Chief Complaint: Right lower lobe pulmonary embolism Subjective: Improving (Patient is not improving still complaining of chest pain patient's main concern is posterior occipital headaches for a month) Review of Systems Respiratory: Shortness of Breath Cardiovascular: Chest Pain Physical Examination - Vital Signs Temperature: 97.6 F Blood Pressure: 98/72 Pulse: 61 Respirations: 20 Pulse Ox (%): 99 - Physical Exam General: Alert, Oriented x3, Mild distress Respiratory: Clear to auscultation bilaterally Cardiovascular: No edema, Regular rate/rhythm Gastrointestinal: Normal bowel sounds, Soft and benign Assessment & Plan - Problems (Diagnosis) (1) Pulmonary embolism Status: Acute Plan: Patient admitted with right lower lobe pulmonary embolism she is still complaining of pain is improving no cardiogram is normal oxygenation satisfactory plan to discharge her home on Eliquis or Xarelto. I have informed patient she will need lifelong anticoagulation console neurology for headaches follow-up with me in 2 weeks Qualifiers: Acute cor pulmonale presence: unspecified
--- NOTE | 2019-12-03 13:18 | RAD REPORT ---
EXAM DESCRIPTION: RAD - Chest Single View - 12/03/2019 12:54 pm CLINICAL HISTORY: Pulmonary embolism chest pain COMPARISON: CT chest November 30 TECHNIQUE: AP portable chest image was obtained 12/03/2019 12:54 pm . FINDINGS: Lung volumes are low. The pulmonary hemorrhage or infarction in the lower right lung field is still present, seen has hazy airspace opacification over the lower right lung field. No failure o r volume overload developing. No left lung field new finding. Trachea is midline. Heart and vasculatu re are normal. No measurable pleural effusion and no pneumothorax. No acute bony abnormality seen. No acute aortic findings suspected. IMPRESSION: Limited portable study showing opacification in the lower right lung field consistent wi th previously diagnosed pulmonary infarction/ hemorrhage.
[2019-12-03] MEDS ORDERED: CYCLOBENZAPRINE 10 MG TAB PO ONE (14:00)
[2019-12-03] MEDS: TOPIRAMATE 25 MG TAB PO SCH ×3 (15:26→21:50)
--- NOTE | 2019-12-03 15:36 | P.PN ---
Subjective Date of Service: 12/03/19 Primary Care Provider: Dr. BOONE Chief Complaint: Right lower lobe pulmonary embolism continues with R-sided chest pain, somewhat improved, but gets severe when pain medication wears off. Continues with moderate headache, mostly in back of head / base of neck, states has been new and intermittent over last month otherwise denies fevers/chills, abdominal pain, dysuria Review of Systems 10-point ROS is otherwise unremarkable Physical Examination - Vital Signs Temperature: 97.6 F Blood Pressure: 98/72 Pulse: 61 Respirations: 18 Pulse Ox (%): 96 - Physical Exam General: Alert, Other (appears uncomfortable) HEENT: Mucous membr. moist/pink Respiratory: Clear to auscultation bilaterally, Normal air movement Cardiovascular: No edema, Regular rate/rhythm, Normal S1 S2 Gastrointestinal: Soft and benign, Non-distended, No tenderness Musculoskeletal: No tenderness (on R chest to palpation) Integumentary: No rashes, No breakdown Neurological: Normal speech, Normal affect Assessment & Plan Physician Review Additional Text: Right lower lobe pulmonary embolism: Chest pain: Hypotension Right lower lobe pulmonary embolism: -Patient has a history of pulmonary embolisms in the past during her 5 years ago. Was on Lovenox shots for 2 years after . -CTA shows large right lower lung pulmonary embolism. -consulted pulm - appreciate assistance -continue Lovenox for now, will check pricing on xarelto/eliquis, will need lifelong anticoagulation -pt is unsure if she ever had hypercoag workup - will obtain labs here Headache -unclear etiology, new over past month -if hypotension is more chronic, concern for basilar migraine, however not having dizziness/confusion/vision changes -also concern given possible hypercoag status -case briefly discussed with neurology, Dr. Ruiz, will obtain MRI/MRA Head & neck for further evaluation -start topamax 25mg daily Chest pain: -troponins negative, likely secondary to PE, pt w/o cardiac history Hypotension -BP better overnight, again ~80 SBP this morning, denies lightheadedness, vision changes, sensory changes, but continues with headache -pt also reports a baseline low BP -given 500ml NS bolus with slight improvement, on IVF @200ml/hr -will monitor closely Dispo: anticipate dc home tomorrow Time Spent Managing Pts Care (In Minutes): 45
--- NOTE | 2019-12-03 18:00 | RAD REPORT ---
EXAM DESCRIPTION: MRI - Brain W/Wo Cont - 12/03/2019 5:45 pm CLINICAL HISTORY: Headache COMPARISON: None TECHNIQUE: Axial, sagittal, and coronal magnetic images of the brain were obtained. 20 cc MultiHance administered intravenously FINDINGS: No abnormal signal within the brain visualized The ventricles are normal in caliber. Diffusion-weighted/ ADC mapping sequences do not demonstrate evidence of an acute infarction. No abnormal enhancement within the brain is seen. An extra-axial fluid collection is not noted. Fluid within the sinuses/mastoids is not seen IMPRESSION: No acute abnormality displayed
--- NOTE | 2019-12-03 18:02 | RAD REPORT ---
EXAM DESCRIPTION: MRI - MRA Neck W/Wo Cont - 12/03/2019 5:45 pm CLINICAL HISTORY: Neck pain/ headache COMPARISON: None. TECHNIQUE: Magnetic resonance angiogram of the neck was performed. 120cc MultiHance was administered intravenously. 3D MIPS reconstruction performed FINDINGS: The common carotid, internal carotid and external carotid arteries do not demonstrate a si gnificant stenosis. An aneurysm is not seen. The vertebral arteries are codominant without visualization of an abnormality. IMPRESSION: Unremarkable MRA neck NASCET criteria used. Mild 0-49% stenosis Moderate 50-69% stenosis Severe 70-99% stenosis
--- NOTE | 2019-12-03 22:57 | CON ---
Reason For Consultation: Consultation was called because of headaches and relationship to a history of multiple pulmonary embolus. History Of Present Illness: Ms. Britton is a 34-year-old right-handed patient who was admitted to [facility] with right lower lobe pulmonary embolus, which symptoms began about 1 week ago with right chest pain that eventually led her to the diagnosis and her hospital admission. She reports her first DVT occurred about 13 years ago with her first child, first . She does not recall having a workup at that point, and she eventually did well with complete resolution of her symptoms. She reports a second clot occurred about 6 years ago and it is not clear what the precipitating factor was then. She was not . She did not have headaches with those pulmonary emboli. She does not recall any evidence of deep vein thromboses with those first 2 clots. She developed a third clot over a week ago and actually had prior to that neck pain and headaches and she went to a chiropractor, but that did not help. She called her primary care physician, Dr. Wheeler and was prescribed a muscle relaxant, but her chest pain and headache worsened and she eventually came to [facility] on 12/01/2019, where she was diagnosed with a pulmonary embolus and ongoing "bad headaches." She does note that her mother apparently has a history of clots and the lung disease, BOOP i.e. Bronchiolitis obliterans organizing pneumonia. She said her mother developed the clot later in life, not while young. The patient denies using control pills, smoking cigarettes or doing any illegal drugs. Since her hospitalization, headaches have been ranging all the way up to 10. She at times would have light and sound sensitivity and nausea with the headaches. Past Medical History: Includes pulmonary embolus, reported collapsed lung with pulmonary embolus in 2006. She had a breast augmentation on October 15, 2019. Family History: Lung disease in mother and again pulmonary embolism in mother. Allergies: NO KNOWN DRUG ALLERGIES. Medications: At home she is on Lovenox 60 mg daily, Tylenol No. 3 one every 6 hours as needed. Review of Systems: As mentioned, significant chest pain with breathing, especially which worsens the pain. Headache is pounding involving whole head with some light and sound sensitivity and nausea. Otherwise, no focal weakness in the face, arm, or leg. No numbness in face, arm, or leg. No loss of vision or blurred vision. No problems with coordination or gait. Physical Examination: Vital Signs: Blood pressure 103/63, pulse 95, respiratory rate 18, temp 98.8, oxygen saturation 100% on 2 L oxygen via nasal cannula. Weight 161 pounds, height 5 feet 2 inches, and BMI of 29.4. Review of Systems: Ms. Britton was seen over telemedicine and she reports no evidence on review of systems and direct questioning consistent with any focal deficits such as face, arm, or leg numbness or weakness, she reported good coordination, balance, and gait as she walked to the bathroom. Laboratory Studies: Complete blood count with differential shows slightly elevated white blood cell count of 11.6, hemoglobin 11.4, hematocrit 33.9, platelets 285. INR is 1.09. She had a stroke when the young, panel pending. Chemistries; sodium 143, potassium 3.9, chloride 112, CO2 26, BUN 7, creatinine 0.5, glucose ranged from 86 to 114. Calcium is low at 7.9. Vitamin B12 level normal at 129. Urinalysis shows 5 to 10 white blood cells, greater than 50 bacteria, 20-50 epithelial cells. She had a brain MRI, which showed no acute ischemic or hemorrhagic stroke. MRA of the neck showed no abnormalities in the neck blood vessels. Echocardiogram shows normal ejection fraction of 64, and no pulmonary hypertension. No wall motion abnormalities and no effusion. Assessment: Ms. 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 She has episodes of low blood pressure with systolic of 91. She also has hypocalcemia. She has multiple clots in terms of her history that involve her lungs, but no evidence of a deep vein thrombosis in the lower extremities. Her mother is diagnosed with a pulmonary disease Bronchiolitis obliterans organizing pneumonia and does have history of clots herself. The patient denies smoking or using control pills. Plan: Follow up the stroke and the other labs. Follow up brain MRA to rule out any aneurysms in the brain. Neck is normal and her brain MRI is unremarkable. She would be best treated with long-term anticoagulation, perhaps Eliquis 5 mg twice daily after a load of 10 mg twice daily for a week and then the aspirin 81 mg daily. She may be on Topamax 25 mg at night for headache prophylaxis and may use a CGRP receptor antagonist, Ubrelvy 50 mg up to twice daily as needed for headache treatment. She may be discharged home and call Dr. Ruiz's clinic on Sunday for a followup appointment. She should be seen within a month of discharge from hospital. JANETTE Voice ID: [id number] Report ID: [id number] KARLEY
[2019-12-04] MEDS: NA CHLORIDE 0.9% 1,000 ML IV SCH ×2 (00:34→05:04)
[2019-12-04] MEDS: HYDROCODONE/APAP 10/325 TAB PO PRN ×2 (00:55→08:07)
[2019-12-04] MEDS ORDERED: KETOROLAC 30 MG/ML INJ IV ONE ×2 (03:07→11:00)
[2019-12-04 06:06] LABS: BUN Blood Urea Nitrogen 6 mg/dL (7-18); Bicarbonate 23 mmol/L (21-32); Glucose Level 81 mg/dL (74-106); Potassium 4.1 mmol/L (3.5-5.1); Sodium Level 142 mmol/L (136-145)
[2019-12-04] MEDS: LIDOCAINE 4% PATCH TOP SCH (08:06)
[2019-12-04] MEDS: ENOXAPARIN 80 MG/0.8 ML SQ SCH (08:07)
[2019-12-04] MEDS ORDERED: NA CHLORIDE 0.9% 0 ML ONE (10:57)
[2019-12-04 14:07] VITALS: O2SAT 96
--- NOTE | 2019-12-04 19:51 | P.DS ---
Admission Date: 12/01/19 Discharge Date: 12/04/19 Primary Care Provider: Dr. BOONE Disposition: ROUTINE DISCHARGE Discharge Condition: GOOD Reason for Admission: Right lower lobe pulmonary embolism Consultations: Neurology - Dr. Ruiz Pulm - Dr. Dailey Procedures: CT - Chest For Pe Angio - 12/01/2019 7:25 pm FINDINGS: Large amount of thrombus is present within right lower lobe pulmonary arteries. No thrombus is seen within left pulmonary artery, main right and left main pulmonary arteries. 5 centimeter right lower lobe peripheral opacity consistent with infarction IMPRESSION: Large amount of right lower lobe pulmonary embolus TTE 12/02/19 COMMENTS: NORMAL 2D ECHOCARDIOGRAM WITH DOPPLER. NO PULMONARY HYPERTENSION. NO WALL MOTION ABNORMALITY. NO EFFUSION. MRI - Brain W/Wo Cont - 12/03/2019 5:45 pm IMPRESSION: No acute abnormality displayed MRI - MRA Neck W/Wo Cont - 12/03/2019 5:45 pm FINDINGS: The common carotid, internal carotid and external carotid arteries do not demonstrate a significant stenosis. An aneurysm is not seen. The vertebral arteries are codominant without visualization of an abnormality. IMPRESSION: Unremarkable MRA neck Problem List Large amount of right lower lobe pulmonary embolus Chest Pain Headache Hypotension Brief History of Present Illness: 34-year-old female with a past medical history of pulmonary embolisms secondary to complications of presented to the emergency room complaining of right upper lung/shoulder pain with inspiration. Also complaining of chest pain in same area. Patient states that it feels identical to when she had a pulmonary embolism during her 5 years ago. Describes chest pain as sharp. States that it started approximately 1 week ago and is somewhat worse. Patient states she had breast augmentation approximately 1 week ago. Patient states that when she had her last pulmonary embolism she was on Lovenox injections for approximately 2 years. Currently is not on a medications for PE. Also complaining of a headache. Hospital Course: Patient was admitted, started on Lovenox anticoagulation for PE, she had significant chest pain that was controlled throughout her hospitalization on [place] 10mg q6 and a lidocaine patch. Shortly after admission, she was noted to be hypotensive to mid 70s/50s, asymptomatic, it was felt due to the opioids received in the ED. This responded slightly to IVF and improved through her course here, but still remained in 90s/50s mostly. She endorsed a long history of being told she had low BP. She was also complaining of severe headache, new in onset for the past month. Given her multiple PEs and new onset, there was concern for vascular disease or clot formation, so a MRI and MRA Head & neck were performed as noted above. Neurology was consulted who recommended starting her on Topamax and for her to follow-up as an outpatient for further management. A Hypercoaguable workup was done, most labs were send outs and are still pending. Patient was discharged on Eliquis, tramadol, lidocaine patches, topamax for her PE, chest pain, and headache Vital Signs/Physical Exam: Temp Pulse Resp BP Pulse Ox 98.1 F 70 20 102/70 96 12/04/19 12:00 12/04/19 12:00 12/04/19 12:00 12/04/19 12:12/04/19 12:00 General: Alert, Other (mild discomfort) HEENT: EOMI, Sclerae nonicteric Neck: Supple, No LAD Respiratory: Other (diminished in RLL base, otherwise clear, nonlabored on room air) Cardiovascular: No edema, Regular rate/rhythm, Normal S1 S2 Gastrointestinal: Normal bowel sounds, Soft and benign, Non-distended, No tenderness Musculoskeletal: No erythema, No tenderness Integumentary: No rashes, No breakdown Neurological: Normal speech, Cranial nerves 3-12 intact, Normal affect Laboratory Data at Discharge: WBC 11.6 K/uL (4.3-10.9) H 12/02/19 03:11 Hgb 11.4 g/dL (12.0-15.0) L 12/02/19 03:11 Hct 33.9 % (36.0-45.0) L 12/02/19 03:11 Plt Count 285 K/uL (152-406) 12/02/19 03:11 PT 12.4 SECONDS (9.5-12.5) 12/02/19 03:11 INR 1.05 12/02/19 03:11 APTT 31.9 SECONDS (24.3-36.9) 12/02/19 03:11 Sodium 142 mmol/L (136-145) 12/04/19 05:26 Potassium 4.1 mmol/L (3.5-5.1) 12/04/19 05:26 BUN 6 mg/dL (7-18) L 12/04/19 05:26 Creatinine 0.48 mg/dL (0.55-1.3) L 12/04/19 05:26 Glucose 81 mg/dL (74-106) 12/04/19 05:26 Magnesium 1.9 mg/dL (1.8-2.4) 12/02/19 03:11 Total Bilirubin 0.3 mg/dL (0.2-1.0) 12/01/19 19:00 AST 16 U/L (15-37) 12/01/19 19:00 ALT 22 U/L (12-78) 12/01/19 19:00 Alkaline Phosphatase 101 U/L (45-117) 12/01/19 19:00 Troponin I < 0.02 ng/mL (0.0-0.045) 12/02/19 19:05 Home Medications: Acetaminophen [Tylenol Extra Strength] 500 mg PO Q4HP PRN 12/02/19 Apixaban [Eliquis] 5 mg PO DIRECTED 30 Days #70 tab 12/03/19 Lidocaine 4% Patch [Lidoderm 5% Patch*] 2 patch TOP DAILY PRN 7 Days #14 patch 12/04/19 Topiramate [Topamax*] 25 mg PO BEDTIME 30 Days #30 tab 12/04/19 Tramadol HCl 100 mg PO Q6HP PRN 6 Days #24 tablet 12/04/19 New Medications: Apixaban [Eliquis] 5 mg PO DIRECTED 30 Days #70 tab Lidocaine 4% Patch [Lidoderm 5% Patch*] 2 patch TOP DAILY PRN 7 Days #14 patch PRN Reason: Pain Scale 5-7 (Moderate) Topiramate [Topamax*] 25 mg PO BEDTIME 30 Days #30 tab Tramadol HCl 100 mg PO Q6HP PRN 6 Days #24 tablet PRN Reason: Pain Scale 8-10 (Severe) Patient Discharge Instructions: follow up with PCP within 1 week. follow up with Dr. Dailey in the next month. follow up with Dr. Ruiz in the next month Diet: Regular Activity: Ad trae Followup: Hernando Dailey MD [ACTIVE - CAN ADMIT] - Joel Ruiz MD [ASSOCIATE-ACTIVE - CAN ADMIT] -
[2019-12-05 09:45] VITALS: BP 98/72; TEMP 97.6
[2019-12-08 11:16] LABS: Protein C Antigen 95 % (70-140)
[2019-12-14 02:27] LABS: Albumin, (SPE) 2.9 g/dL (3.8-4.8); Alpha-1-Globulins 0.5 g/dL (0.2-0.3); Alpha-2-Globulins 1.1 g/dL (0.5-0.9); INTERPRETATION REPORT
== END 2019-12-04 13:50 | disposition home or self-care (01) ==
LOC: ER 17:58 → ERHOLD 21:48 → 4TH 23:04 → 2ND 12-02 19:44 → OBSVTOIN 12-04 10:21 → INTOOBSV 12-04 10:21
PROVIDERS: ADMIT Hospitalist; ATTEND Hospitalist
DX: I26.99 Other pulmonary embolism without acute cor pulmonale (principal); R07.9 Chest pain, unspecified; I95.9 Hypotension, unspecified; E83.51 Hypocalcemia; R51 Headache; R00.0 Tachycardia, unspecified; Z79.01 Long term (current) use of anticoagulants; Z79.3 Long term (current) use of hormonal contraceptives; Z86.711 Personal history of pulmonary embolism
CPT/HCPCS: 93005; 93306; 85025 ×2; 80048 ×4; 36415 ×3; 83735 ×2; 85610 ×2; 82565; 80076; 85730; 84484 ×4; 82607; 81241; 81240; 83880; 83090; 85300; 85302; 85305; 85306; 86021; 86147 ×2; 84165; 71275; 71045; 70553; 70549; 96375; 96372; 96374; 99285; Q9967; A9577; J3360; J3010; J2270; J7040 ×2; J7030 ×8; J2405; G0378 ×2; 81003; 81015; J7050

== ENCOUNTER 2019-12-13 07:44 | Emergency (ER) | payer BC ==
--- OUTSIDE RECORDS SUMMARY | 2019-12-13 07:47 | XMS REPORT | Clinical Summary ---
:1985 Author Organization [facility] Address [address] [place] [address] Care Team Providers Name Role Phone Gabriela [...] enco unter (Primary Dx) 07/07/2019 Travel after 12/12/2018 Social History Tobacco Use Types Packs/Day Years [...] INFLUENZA VACCINE 01/08/2020 Results Not on fileafter 12/12/2018 Advance Directives For more information, please contact: [phone] Type Date Recorded Patient Caddie Explanati on Advance Directives, Living Will and Medical Power of Dope Edger
--- OUTSIDE RECORDS SUMMARY | 2019-12-13 07:47 | XMS REPORT | Continuity of Care Document ---
:1985 Author Organization [facility] t Address [address] [place] [address] Care Team Providers Name Role Phone Daylin Escamilla MD Primary Care Physician Hong OLGUIN, E. Attending Clinician Odilon FERRER Attending Clinician Unavailable Aubree OLGUIN, L Attending Clinician Payers Payer Name Policy Type Policy Number Effective Date Expiration Date S mayito [id number] xxxxxxxxxxxx 2018 [place] CHOICE 00:00:00 [employer] PPO/FEDERAL EMPL PPOxxxxxxxxxxx 2018-Pres entPPO Problems Condition Condition Condition Status Onset Resolution Last Treating Co mments Source Name Details Category Date Date Treatment Clinician Date Elbow Elbow Disease Active [place] stiffness, stiffness, 3-30 Me thodi right right 00:00: st 00 Closed Closed Disease Active [place] displaced displaced 2-07 Meth oksana fracture fracture [...] Allergie 10-02 Clear s 00:00: [place] 00 [facility] Social History Social Habit Start Date Stop [...] Jamil Rojas BMI 2019-08-04 15:34:00 23.05 kg/m2 [place] [facility] Procedures This patient has no known procedures. Plan of Care Planned Activity Planned Date Details Comments Source Future Scheduled 2020-01-08 INFLUENZA VACCINE Karri strange [facility] Test 00:00:00 [code = INFLUENZA VACCINE] Future Scheduled 2004-09-[address] [facility] thodist Test 00:00:00 malignant neoplasm of cervix (procedure) [code = 561284405] Encounters Start End Encounter Admission Attending Care Care Encounter Source Date/Time Date/Time Type Type Clinicians Facility Department ID 2019-08-04 2019-08-04 Outpatient [facility]Y [facility] [id number] [place] 00:00:00 00:00:[address] 2019-07-07 2019-07-07 [facility] [id number] [place] 00:00:00 00:00:[address] 2019-05-16 2019-05-16 Office LAY Mak [id number] 09:44:57 10:36:48 Visit [facility] [id number] Surgical [id number] Specialti [id number] [place] Results This patient has no known results.
[2019-12-13 08:36] LABS: Absolute Lymphocytes (CBC) 1.9 K/uL (0.7-4.9); Basophils % 0.3 % (0-1.3); Hematocrit 38.5 % (36.0-45.0); Lymphocytes % 21.6 % (15.3-44.8); MPV 7.4 fL (7.6-11.3); RBC Red Blood Cell Count 4.59 M/uL (3.86-4.86)
[2019-12-13 08:38] LABS: Protime INR 1.56
[2019-12-13 08:54] LABS: ALT/SGPT 35 U/L (12-78); AST/SGOT 23 U/L (15-37); Albumin 3.2 g/dL (3.4-5.0); Alkaline Phosphatase 130 U/L (45-117); BUN Blood Urea Nitrogen 13 mg/dL (7-18); Bicarbonate 26 mmol/L (21-32); Bilirubin Direct 0.1 mg/dL (0-0.2); Bilirubin Total 0.3 mg/dL (0.2-1.0); Glucose Level 84 mg/dL (74-106); NT PRO-BNP 26 pg/mL (<125); Potassium 4.2 mmol/L (3.5-5.1); Sodium Level 138 mmol/L (136-145); Troponin (Emerg Dept Use Only) < 0.02 ng/mL (0.0-0.045)
--- NOTE | 2019-12-13 09:07 | RAD REPORT ---
EXAM DESCRIPTION: CT - Chest For Pe Angio - 12/13/2019 8:47 am CLINICAL HISTORY: Chest pain. Chest pain;PE COMPARISON: Chest For Pe Angio dated 12/01/2019 TECHNIQUE: CT angiogram of the pulmonary arteries was performed with MIP. All CT scans are performed using dose optimization technique as appropriate and may include automated exposure control or mA/KV adjustment according to patient size. FINDINGS: Previously noted right-sided pulmonary emboli have mostly resolved. There continues to be mild pulmonary thromboembolism within inferolateral right lower lobe pulmonary arterial tree branches . No new pulmonary thromboembolism is seen. No acute aortic finding demonstrated. Pleural-based opacities noted in the lateral aspect of the right lower lobe which may represent small areas pulmonary infarction. Small right pleural effusion. No concerning bony finding. IMPRESSION: Significant resolution of previously noted right-sided pulmonary emboli as detailed. Inf erolateral right lower lobe pulmonary arterial tree branches continue to demonstrate the presence of pulmonary embolism and small areas of evolving pulmonary infarction in the lateral right lower lobe. No new or acute pulmonary thromboembolism seen. No RV strain pattern. Small right pleural effusion.
[2019-12-13] MEDS ORDERED: ONDANSETRON 4 MG/2 ML VIAL ONE (09:13)
[2019-12-13] MEDS ORDERED: FENTANYL CITR 100 MCG/2 ML ONE (09:13)
[2019-12-13] MEDS ORDERED: NA CHLORIDE 0.9% 1,000 ML ONE (09:13)
[2019-12-13] MEDS ORDERED: FAMOTIDINE 20 MG/2 ML VIAL IV ONE (09:13)
--- NOTE | 2019-12-13 09:25 | RAD REPORT ---
EXAM DESCRIPTION: RAD - Chest Single View - 12/13/2019 9:09 am CLINICAL HISTORY: Chest pain;Dyspnea;SOB Chest pain. COMPARISON: Chest Single View dated 12/03/2019; Chest Pa And Lat (2 Views) dated 05/16/2018; Chest Sing le View dated 07/10/2017; CHEST PA AND LAT 2 VIEW dated 02/25/2014 FINDINGS: Portable technique limits examination quality. Small opacity is seen in the peripheral right lower lobe with small left pleural effusion. Mild impro vement in left lung aeration is seen since comparative study. The left lung appears clear. The heart is normal in size. No displaced fractures.
--- NOTE | 2019-12-13 09:43 | EDPHYS ---
Physician Documentation [facility] Name: Elizbaeth Britton Age: 34 yrs Sex: Female : 1985 Arrival Date: 12/13/2019 Time: 07:47 Bed 6 Private MD: Igor Rg HPI: 12/12 08:15 This 34 yrs old Female presents to ER via Wheelchair with complaints of Back curtis Pain, Shortness Of Breath. 08:15 The patient presents with pain that is acute, with no known mechanism of injury. curtis 08:16 The patient has shortness of breath at rest, with light activity. Onset: The curtis symptoms/episode began/occurred 1 day(s) ago. Duration: The symptoms are continuous, and are steadily getting worse. The patient's shortness of breath is aggravated by nothing, is alleviated by rest, application of supplemental oxygen. The patient or guardian reports chest pain that is located primarily in the anterior chest wall, right. The symptoms are located in the right subscapular area and right mid back. Onset: The symptoms/episode began/occurred 1 day(s) ago. The pain does not radiate. Historical: - Allergies: 08:02 No Known Allergies; iw - Home Meds: 08:02 Eliquis 5 mg oral tab 1 tab 2 times per day [Active]; tramadol 100 mg oral Tb24 iw [Active]; - PMHx: 08:02 blood clot in lung; iw - PSHx: 08:02 ; Hysterectomy; breast augmentation; iw - Immunization history:: Adult Immunizations not up to date. - Social history:: Smoking status: Patient denies any tobacco usage or history of. ROS: 08:16 Constitutional: Negative for fever, chills, and weight loss, Eyes: Negative for injury, curtis pain, redness, and discharge, ENT: Negative for injury, pain, and discharge, Neck: Negative for injury, pain, and swelling, Abdomen/GI: Negative for abdominal pain, nausea, vomiting, diarrhea, and constipation, Back: Negative for injury and pain, : Negative for injury, bleeding, discharge, and swelling, MS/Extremity: Negative for injury and deformity, Skin: Negative for injury, rash, and discoloration, Neuro: Negative for headache, weakness, numbness, tingling, and seizure, Psych: Negative for depression, anxiety, suicide ideation, homicidal ideation, and hallucinations, Allergy/Immunology: Negative for hives, rash, and allergies, Endocrine: Negative for neck swelling, polydipsia, polyuria, polyphagia, and marked weight changes, Hematologic/Lymphatic: Negative for swollen nodes, abnormal bleeding, and unusual bruising. 08:16 Cardiovascular: Positive for chest pain, with cough, with movement. 08:16 Respiratory: Positive for cough, shortness of breath, at rest. Exam: 08:16 Constitutional: This is a well developed, well nourished patient who is awake, alert, curtis and in no acute distress. Head/Face: Normocephalic, atraumatic. Eyes: Pupils equal round and reactive to light, extra-ocular motions intact. Lids and lashes normal. Conjunctiva and sclera are non-icteric and not injected. Cornea within normal limits. Periorbital areas with no swelling, redness, or edema. ENT: Nares patent. No nasal discharge, no septal abnormalities noted. Tympanic membranes are normal and external auditory canals are clear. Oropharynx with no redness, swelling, or masses, exudates, or evidence of obstruction, uvula midline. Mucous membranes moist. Neck: Trachea midline, no thyromegaly or masses palpated, and no cervical lymphadenopathy. Supple, full range of motion without nuchal rigidity, or vertebral point tenderness. No Meningismus. Chest/axilla: Normal chest wall appearance and motion. Nontender with no deformity. No lesions are appreciated. Cardiovascular: Regular rate and rhythm with a normal S1 and S2. No gallops, murmurs, or rubs. Normal PMI, no JVD. No pulse deficits. Respiratory: Lungs have equal breath sounds bilaterally, clear to auscultation and percussion. No rales, rhonchi or wheezes noted. No increased work of breathing, no retractions or nasal flaring. Abdomen/GI: Soft, non-tender, with normal bowel sounds. No distension or tympany. No guarding or rebound. No evidence of tenderness throughout. Back: No spinal tenderness. No costovertebral tenderness. Full range of motion. Skin: Warm, dry with normal turgor. Normal color with no rashes, no lesions, and no evidence of cellulitis. MS/ Extremity: Pulses equal, no cyanosis. Neurovascular intact. Full, normal range of motion. Neuro: Awake and alert, GCS 15, oriented to person, place, time, and situation. Cranial nerves II-XII grossly intact. Motor strength 5/5 in all extremities. Sensory grossly intact. Cerebellar exam normal. Normal gait. Psych: Awake, alert, with orientation to person, place and time. Behavior, mood, and affect are within normal limits. 09:20 ECG was reviewed by the Attending Physician. curtis Vital Signs: 07:58 BP 105 / 78; Pulse 92; Resp 16 S; Temp 98.5; Pulse Ox 98% on R/A; Weight 72.57 kg; iw Height 5 ft. 2 in. (157.48 cm); Pain 6/10; 08:59 BP 106 / 67; Pulse 93; Resp 16; Temp 99.0(O); Pulse Ox 96% on R/A; Pain 6/10; mh5 10:00 BP 108 / 65; Pulse 89; Resp 15 S; Pulse Ox 98% on R/A; jl7 07:58 Body Mass Index 29.26 (72.57 kg, 157.48 cm) iw MDM: 07:49 Patient medically screened. curtis 08:19 Antibiotic administration: Not indicated. Differential diagnosis: Anemia CHF curtis exacerbation, Chronic Obstructive Pulmonary Disease Basilar Pneumonia pneumothorax, pulmonary embolus, Fatigue unstable angina. HEART Score: History: Slightly Suspicious (0), ECG: Normal (0), Age: < or = 45 years (0), Risk Factors: No Risk Factors Known (0), Troponin: < or = 1 x Normal Limit (0). The patient's Wells Deep Vein Thrombosis Score was calculated as follows: Suspected DVT (3 Pts) Previous DVT/PE (1.5 Pts) Total Score: 3-6 Pts - Mod Risk. The patient's pulmonary embolism risk score was calculated as follows: suspected deep vein thrombosis (3 Pts) the patient has a history of a previous deep vein thrombosis or pulmonary embolism (1.5 Pts) Total Score: 3-6 points. This patient was found to be at moderate risk for a pulmonary embolism by using the Well's assessment criteria. ARTHUR Risk Score: TOTAL SCORE = 0. Immunization status:. Data reviewed: vital signs, nurses notes, lab test result(s), EKG, radiologic studies, CT scan, plain films. Data interpreted: quality assurance monitor chassis: rate is 92 beats/min, rhythm is regular, Pulse oximetry: on room air. Test interpretation: by ED physician or midlevel provider: ECG, plain radiologic studies. 09:34 ED course: labs discussed, ct findings reviewed, pt to continue treatmenrt, will follow curtis up, return if worse. 12/12 08:12 Order name: Basic Metabolic Panel; Complete Time: 09:30 curtis 12/12 08:12 Order name: CBC with Diff; Complete Time: :30 curtis 12/12 08:12 Order name: LFT's; Complete Time: :30 curtis 12/12 08:12 Order name: Magnesium; Complete Time: :30 curtis 12/12 08:12 Order name: NT PRO-BNP; Complete Time: :30 curtis 12/12 08:12 Order name: PT-INR; Complete Time: : curtis 12/12 08:12 Order name: Troponin (emerg Dept Use Only); Complete Time: :30 [facility] 12/12 08:12 Order name: XRAY Chest (1 view); Complete Time: :30 [facility] 12/12 08:12 Order name: CT Chest For PE Angio; Complete Time: :30 [facility] 12/12 08:12 Order name: US Extremity Venous W Compression Cheikh 12/12 09:34 Order name: INCENTIVE SPIROMETRY 12/12 08:12 Order name: EKG; Complete Time: 08:13 [facility] 12/12 08:12 Order name: Cardiac monitoring; Complete Time: 09:02 12/12 08:12 Order name: EKG - Nurse/Tech; Complete Time: 09:02 curtis 12/12 08:12 Order name: IV Saline Lock; Complete Time: 08:30 [facility] 12/12 08:12 Order name: Labs collected and sent; Complete Time: 08:30 [facility] 12/12 08:12 Order name: O2 Per Protocol; Complete Time: 08:30 curtis 12/12 08:12 Order name: O2 Sat Monitoring; Complete Time: 08:30 [facility] EC:20 Rate is 81 beats/min. Rhythm is regular. QRS [place] is Normal. HI interval is normal. QRS curtis interval is normal. QT interval is normal. No Q waves. T waves are Normal. No ST changes noted. Clinical impression: Normal ECG and No evidence of ischemia. Interpreted by me. Reviewed by me. Administered Medications: 09:05 Drug: NS 0.9% 1000 ml Route: IV; Rate: 1 bolus; Site: left antecubital; jl7 10:00 Follow up: Response: No adverse reaction; IV Status: Completed infusion; IV Intake: jl7 1000ml 09:05 Drug: Pepcid 20 mg Route: IVP; Site: left antecubital; jl7 10:22 Follow up: Response: No adverse reaction jl7 09:06 Drug: Zofran (Ondansetron) 4 mg Route: IVP; Site: left antecubital; jl7 10:22 Follow up: Response: No adverse reaction jl7 09:08 Drug: fentaNYL (PF) 25 mcg Route: IVP; Site: left antecubital; jl7 09:35 Follow up: Response: No adverse reaction; Pain is unchanged, physician notified jl7 09:41 Not Given (Pt took her own Eliquis): Eliquis 5 mg PO once jl7 09:45 Drug: morphine 2 mg Route: IVP; Site: left antecubital; jl7 10:00 Follow up: Response: No adverse reaction; Pain is unchanged, physician notified jl7 10:15 Drug: TORadol 30 mg Route: IVP; Site: left antecubital; jl7 10:22 Follow up: Response: Medication administered at discharge. Disposition: 12/13/19 09:43 Discharged to Home. Impression: Pulmonary embolism without acute cor pulmonale - with small areas of pulmonary infarction, Pleural effusion in conditions classified elsewhere, Pleurisy. - Condition is Stable. - Discharge Instructions: Pleural Effusion, Pleurisy, Incentive Spirometer, Pleurisy, [id number]. - Prescriptions for Eliquis 5 mg Oral tablet - take 1 tablet by ORAL route 2 times per day; 30 tablet. Pepcid 20 mg Oral Tablet - take 1 tablet by ORAL route every 12 hours for 10 days; 20 tablet. Tylenol- Codeine #3 300-30 mg Oral Tablet - take 2 tablets by ORAL route every 6 hours As needed; 24 tablet. - Medication Reconciliation Form, Thank You Letter, Antibiotic Education, Prescription Opioid Use form. - Follow up: Private Physician; When: 2 - 3 days; Reason: Recheck today's complaints, Continuance of care, Re-evaluation by your physician. Follow up: Hernando Dailey MD; When: 2 - 3 days; Reason: Recheck today's complaints, Continuance of care, Re-evaluation by your physician. - Problem is new. - Symptoms have improved. Signatures: Dispatcher [employer] EDIgor Garrett MD MD cha Williams, Irene, RN RN Navdeep Arnold RN RN jl7 Corrections: (The following items were deleted from the chart) 09:44 09:43 12/13/2019 09:43 Discharged to Home. Impression: Pulmonary embolism without acute curtis cor pulmonale - with small areas of pulmonary infarction; Pleural effusion in conditions classified elsewhere; Pleurisy. Condition is Stable. Forms are Medication Reconciliation Form, Thank You Letter, Antibiotic Education, Prescription Opioid Use. Follow up: Private Physician; When: 2 - 3 days; Reason: Recheck today's complaints, Continuance of care, Re-evaluation by your physician. Problem is new. Symptoms have improved. curtis 10:25 09:44 12/13/2019 09:43 Discharged to Home. Impression: Pulmonary embolism without acute jl7 cor pulmonale - with small areas of pulmonary infarction; Pleural effusion in conditions classified elsewhere; Pleurisy. Condition is Stable. Forms are Medication Reconciliation Form, Thank You Letter, Antibiotic Education, Prescription Opioid Use. Follow up: Private Physician; When: 2 - 3 days; Reason: Recheck today's complaints, Continuance of care, Re-evaluation by your physician. Follow up: Hernando Dailey; When: 2 - 3 days; Reason: Recheck today's complaints, Continuance of care, Re-evaluation by your physician. Problem is new. Symptoms have improved. curtis
--- NOTE | 2019-12-13 09:43 | ER ---
Nurse's Notes [facility] Name: Elizabeth Britton Age: 34 yrs Sex: Female : 1985 Arrival Date: 12/13/2019 Time: 07:47 Bed 6 Private MD: Diagnosis: Pulmonary embolism without acute cor pulmonale-with small areas of pulmonary infarction;Pleural effusion in conditions classified elsewhere;Pleurisy Presentation: 12/12 07:58 Chief complaint: Patient states: was d/c last week, diagnosed with right sided PE, has iw been on eliquis, woke up in the middle of night with right sided back and chest pain and SOB, denies fever, chills or cough. Coronavirus screen: shortness of breath. Ebola Screen: Patient negative for fever greater than or equal to 101.5 degrees Fahrenheit, and additional compatible Ebola Virus Disease symptoms Patient denies exposure to infectious person. Patient denies travel to an Ebola-affected area in the 21 days before illness onset. No symptoms or risks identified at this time. Initial Sepsis Screen: Does the patient meet any 2 criteria? No. Patient's initial sepsis screen is negative. Does the patient have a suspected source of infection? No. Patient's initial sepsis screen is negative. Risk Assessment: Do you want to hurt yourself or someone else? Patient reports no desire to harm self or others. Onset of symptoms was December 13, 2019. 07:58 Method Of Arrival: Wheelchair iw 07:58 Acuity: BE 3 iw Historical: - Allergies: 08:02 No Known Allergies; iw - Home Meds: 08:02 Eliquis 5 mg oral tab 1 tab 2 times per day [Active]; tramadol 100 mg oral Tb24 iw [Active]; - PMHx: 08:02 blood clot in lung; iw - PSHx: 08:02 ; Hysterectomy; breast augmentation; iw - Immunization history:: Adult Immunizations not up to date. - Social history:: Smoking status: Patient denies any tobacco usage or history of. Screenin:00 Abuse screen: Denies threats or abuse. Denies injuries from another. Nutritional jl7 screening: No deficits noted. Tuberculosis screening: No symptoms or risk factors identified. Fall Risk IV access (20 points). Total Kim Fall Scale indicates No Risk (0-24 pts). Assessment: 09:00 General: Appears in no apparent distress. uncomfortable, Behavior is calm, cooperative, jl7 appropriate for age. Pain: Complains of pain in right mid back and right subscapular area Pain currently is 6 out of 10 on a pain scale. Quality of pain is described as sharp, shooting, Is intermittent. Neuro: Level of Consciousness is awake, alert, obeys commands, Oriented to person, place, time, situation. Cardiovascular: Heart tones S1 S2 present Patient's skin is warm and dry. Respiratory: Reports shortness of breath pain with respiration Airway is patent Respiratory effort is even, unlabored, shallow, Respiratory pattern is regular, symmetrical, Breath sounds are clear bilaterally. pt unable to take a deep breath due to pain. Derm: Skin is pink, warm \T\ dry. 10:00 Reassessment: Dr. Lewis at bedside discussing results and POC. jl7 Vital Signs: 07:58 BP 105 / 78; Pulse 92; Resp 16 S; Temp 98.5; Pulse Ox 98% on R/A; Weight 72.57 kg; iw Height 5 ft. 2 in. (157.48 cm); Pain 6/10; 08:59 BP 106 / 67; Pulse 93; Resp 16; Temp 99.0(O); Pulse Ox 96% on R/A; Pain 6/10; mh5 10:00 BP 108 / 65; Pulse 89; Resp 15 S; Pulse Ox 98% on R/A; jl7 07:58 Body Mass Index 29.26 (72.57 kg, 157.48 cm) iw ED Course: 07:47 Patient arrived in ED. ds1 07:49 Igor Lewis MD is Attending Physician. curtis 08:01 Triage completed. iw 08:03 Arm band placed on. iw 08:29 Initial lab(s) drawn, by me, sent to lab. Inserted saline lock: 20 gauge in left iw antecubital area, using aseptic technique. Blood collected. 08:47 CT Chest For PE Angio In Process Unspecified. EDMS 08:59 Navdeep Chang, GURMEET is Primary Nurse. jl7 09:02 Patient has correct armband on for positive identification. Placed in gown. Bed in low mh5 position. Call light in reach. Side rails up X 1. Warm blanket given. Pulse ox on. NIBP on. 09:09 XRAY Chest (1 view) In Process Unspecified. EDMS 09:15 EKG done, by ED staff, reviewed by Igor Lewis MD. mh5 09:42 US Extremity Venous W Compression Cheikh In Process Unspecified. EDMS 09:43 Hernando Dailey MD is Referral Physician. curtis 10:15 Incentive spirometer education provided by an Emergency Department nursing staff member.jl7 10:24 No provider procedures requiring assistance completed. IV discontinued, intact, jl7 bleeding controlled, No redness/swelling at site. Pressure dressing applied. Administered Medications: 09:05 Drug: NS 0.9% 1000 ml Route: IV; Rate: 1 bolus; Site: left antecubital; jl7 10:00 Follow up: Response: No adverse reaction; IV Status: Completed infusion; IV Intake: jl7 1000ml 09:05 Drug: Pepcid 20 mg Route: IVP; Site: left antecubital; jl7 10:22 Follow up: Response: No adverse reaction jl7 09:06 Drug: Zofran (Ondansetron) 4 mg Route: IVP; Site: left antecubital; jl7 10:22 Follow up: Response: No adverse reaction jl7 09:08 Drug: fentaNYL (PF) 25 mcg Route: IVP; Site: left antecubital; jl7 09:35 Follow up: Response: No adverse reaction; Pain is unchanged, physician notified jl7 09:41 Not Given (Pt took her own Eliquis): Eliquis 5 mg PO once jl7 09:45 Drug: morphine 2 mg Route: IVP; Site: left antecubital; jl7 10:00 Follow up: Response: No adverse reaction; Pain is unchanged, physician notified jl7 10:15 Drug: TORadol 30 mg Route: IVP; Site: left antecubital; jl7 10:22 Follow up: Response: Medication administered at discharge. jl7 Intake: 10:00 IV: 1000ml; Total: 1000ml. jl7 Outcome: 09:43 Discharge ordered by . curtis 10:25 Discharged to home ambulatory. jl7 10:25 Condition: stable 10:25 Discharge instructions given to patient, Instructed on discharge instructions, follow up and referral plans. medication usage, Demonstrated understanding of instructions, follow-up care, medications, Prescriptions given X 3. 10:25 Patient left the ED. jl7 Signatures: Dispatcher [employer] Igor Tovar MD MD cha Sanford, Demi ds1 Patti Mi, Ghislaine Loyola RN [facility] Navdeep Chang RN RN jl7
[2019-12-13] MEDS ORDERED: MORPHINE 2 MG/ML SYR ONE (09:55)
--- NOTE | 2019-12-13 10:04 | RAD REPORT ---
EXAM DESCRIPTION: US - Extrem Venous W Compress Cheikh - 12/13/2019 9:42 am CLINICAL HISTORY: Pain;Swelling Bilateral leg edema and swelling. COMPARISON: EXT VENOUS UNI LTD dated 03/15/2014 TECHNIQUE: Real-time sonographic interrogation of the left and right lower extremity deep venous sys tems was performed. FINDINGS: Normal compressibility, flow augmentation, phasic flow and spontaneous flow is identified in both the left and right lower extremity deep venous systems. IMPRESSION: No sonographic evidence of left or right lower extremity deep venous thrombosis.
[2019-12-13] MEDS ORDERED: KETOROLAC 30 MG/ML INJ ONE (10:26)
[2019-12-14 11:17] VITALS: TEMP 99
[2019-12-14 11:18] VITALS: BP 108/65; O2SAT 98
--- NOTE | 2019-12-16 05:23 | EKG ---
Test Date: 2019-12-13 Test Time: 09:10:02 Major Assembly Lineman: TONG MEASUREMENT RESULTS: Intervals: Rate: 76 AK: 140 QRSD: 72 QT: 388 QTc: 436 [place]: P: 64 AK: 140 QRS: 46 T: 49 INTERPRETIVE STATEMENTS: Normal sinus rhythm Low voltage QRS Borderline ECG Compared to ECG 12/01/2019 18:53:15 Low QRS voltage now present Sinus tachycardia no longer present Electronically Signed On 12-16-19 05:20:52 CDT by Joseluis Hall
--- NOTE | 2019-12-16 20:05 | EKG ---
Test Date: 2019-12-13 Test Time: 09:11:02 [employer] Wms Consultant: TONG MEASUREMENT RESULTS: Intervals: Rate: 81 CO: 150 QRSD: 72 QT: 384 QTc: 446 [place]: P: 66 CO: 150 QRS: 22 T: 40 INTERPRETIVE STATEMENTS: Normal sinus rhythm Possible Left atrial enlargement Low voltage QRS Borderline ECG Compared to ECG 12/13/2019 09:10:02 No significant changes Electronically Signed On 12-16-19 19:59:50 CDT by Joseluis Hall
== END 2019-12-13 10:25 | disposition home or self-care (01) ==
LOC: ER 07:44
DX: I26.99 Other pulmonary embolism without acute cor pulmonale (principal); R09.1 Pleurisy; J91.8 Pleural effusion in other conditions classified elsewhere; Z79.02 Long term (current) use of antithrombotics/antiplatelets; Z98.82 Breast implant status
CPT/HCPCS: 96361; 93005 ×2; 85025; 80048; 36415; 83735; 85610; 80076; 84484; 83880; 71275; 71045; 93970; 96375; 96374; 99284; Q9967; J3010; J2270; J7030; J2405

== ENCOUNTER 2020-02-08 08:48 | Inpatient (IN) | payer BC ==
--- OUTSIDE RECORDS SUMMARY | 2020-02-08 08:50 | XMS REPORT | Clinical Summary ---
:1985 Author Organization [facility] Address [address] [place] [address] Care Team Providers Name Role Phone Gabriela Escamilla MD Primary Care Provider Allergies No Known Active Allergies Medications Medication Sig Dispensed Refills Start [...] 08/04/2019 Telemedicine Orthopedic Surgery Harshil Pitts MD [facility] ed displaced fracture of nec k of [...] enco unter (Primary Dx) 07/07/2019 Travel after 02/07/2019 Surgical History Surgery Date Site/Laterality Comments HYSTERECTOMY BLADDER SURGERY SECTION Medical History Medical History Date Comments Closed displaced fracture of neck of right radius 05/16/2019 Elbow stiffness, right 07/07/2019 Social History Tobacco Use Types Packs/Day Years Used Date Never Assessed Sex Assigned at Date Recorded Not on file Last Filed Vital Signs Vital Sign Reading [...] Comments CERVICAL CANCER SCREENING 09/23/2004 INFLUENZA VACCINE 11/08/2019 Results Not on fileafter 02/07/2019 Advance Directives For more information, please contact: [phone] Type Date Recorded 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
--- OUTSIDE RECORDS SUMMARY | 2020-02-08 08:50 | XMS REPORT | Continuity of Care Document ---
:1985 Author Organization [facility] t Address [address] [place] [address] Care Team Providers Name Role Phone Daylin Escamilla MD Primary Care Physician Hong OLGUIN, Valerie Attending Clinician Odilon FERRER Attending Clinician Unavailable Aubree OLGUIN, L Attending Clinician Payers Payer Name Policy Type Policy Effective Date Expiration Date Sour ce Number BCBSBCBS CHOICE [id number] 2018 [place] PPO/FEDERAL 00:00:00 [employer] [id number] 2018-Ariel tPPO Problems Condition Condition Condition Status Onset Resolution Last Treating Co mments Source Name Details Category Date Date Treatment Clinician Date Elbow Elbow Disease Active [place] stiffness, stiffness, 3-30 Me thodi right right 00:00: st 00 Closed Closed Disease Active [place] displaced displaced 2-07 Meth oksana fracture fracture [...] Allergie 10-02 Clear s 00:00: [place] 00 [facility] Social History Social Habit Start Date Stop [...] st tablet 00 HYPERRHO Yes INJ IM Nergon S/D 1,500 6-09 NOW. Methodi unit (300 00:00: st mcg) 00 syringe Vital Signs Vital Name Observation Time Observation Value Comments Source Body height 2019-08-04 15:34:00 157.5 cm Jamil Rojas Body weight 2019-08-04 15:34:00 57.153 kg Jamil Rojas BMI 2019-08-04 15:34:00 23.05 kg/m2 [place] [employer] Procedures This patient has no known procedures. Plan of Care Planned Activity Planned Date Details Comments Source Future Scheduled 2019-11-08 INFLUENZA VACCINE Karri strange [employer] Test 00:00:00 [code = INFLUENZA VACCINE] Future Scheduled 2004-09-23 Screening for [facility]odist Test 00:00:00 malignant neoplasm of cervix (procedure) [code = 104252575] Encounters Start End Encounter Admission Attending Care Care Encounter Source Date/Time Date/Time Type Type Clinicians Facility Department ID 2019-08-04 2019-08-04 Outpatient [facility] [id number] [place] 00:00:00 00:00:[address] 2019-07-07 2019-07-07 [facility] [id number] [place] 00:00:00 00:00:[address] 2019-05-16 2019-05-16 Office LAY Mak [id number] 09:44:57 10:36:48 Visit [facility] [id number] Surgical [id number] Specialti [id number] [place] Results This patient has no known results.
[2020-02-08] MEDS ORDERED: PANTOPRAZOLE 40 MG INJ ONE (09:48)
[2020-02-08] MEDS ORDERED: MORPHINE 2 MG/ML SYR ONE ×2 (09:48→12:00)
[2020-02-08] MEDS ORDERED: NA CHLORIDE 0.9% 1,000 ML ONE ×2 (09:48→12:57)
[2020-02-08 09:50] LABS: Absolute Lymphocytes (CBC) 1.8 K/uL (0.7-4.9); Basophils % 1.3 % (0-1.3); Hematocrit 40.6 % (36.0-45.0); Lymphocytes % 29.2 % (15.3-44.8); MPV 8.8 fL (7.6-11.3); RBC Red Blood Cell Count 4.82 M/uL (3.86-4.86)
[2020-02-08 09:53] LABS: Protime INR 1.7
[2020-02-08 10:01] LABS: ALT/SGPT 60 U/L (12-78); AST/SGOT 38 U/L (15-37); Albumin 3.3 g/dL (3.4-5.0); Alkaline Phosphatase 94 U/L (45-117); BUN Blood Urea Nitrogen 9 mg/dL (7-18); Bicarbonate 27 mmol/L (21-32); Bilirubin Direct 0.1 mg/dL (0-0.2); Bilirubin Total 0.5 mg/dL (0.2-1.0); Glucose Level 88 mg/dL (74-106); Lipase 147 U/L (73-393); Potassium 3.7 mmol/L (3.5-5.1); Protein, Total 7.6 g/dL (6.4-8.2); Sodium Level 138 mmol/L (136-145)
--- NOTE | 2020-02-08 12:00 | RAD REPORT ---
EXAM DESCRIPTION: CT - Abdomen Pelvis W Contrast - 02/08/2020 11:21 am CLINICAL HISTORY: ABD PAIN COMPARISON: Abdomen Pelvis W Contrast dated 01/28/2019; Chest For Pe Angio dated 12/13/2019 TECHNIQUE: Biphasic, helical CT imaging of the abdomen and pelvis was performed following 100 ml non -ionic IV contrast. Oral contrast was given. All CT scans are performed using dose optimization technique as appropriate and may include automated exposure control or mA/KV adjustment according to patient size. FINDINGS: The 19 millimeter x 8 millimeter pleural abutting soft tissue focus is present. Remnant pu lmonary hemorrhage or scarring from a much larger area seen December 12 has improved. The liver, spleen, and pancreas show no suspicious findings. Gallbladder and biliary tree are also wi thout suspicious finding. Symmetric renal function is seen with no hydronephrosis or suspicious renal mass. No pyelonephritis o r acute parenchymal process. No bladder wall thickening, mass or bladder calcification. No adrenal ab normalities. Uterus is absent by history. Soft tissues at the vaginal cuff are within normal limits a nd similar or decreased since January 2019. There are numerous surgical clips along the pelvic floor along the margins of the urinary bladder. Ovaries are unremarkable. The gastric dilatation or wall thickening. Minimal hiatal hernia is seen. No delay in transit of cont rast into the bowel. Proximal bowels opacified. Oral contrast has not reached the colon or distal sma ll bowel. Fluid is present in the distal small bowel loops. A few small mesenteric lymph nodes are se en in the right lower quadrant. No acute colon process is identifiable. Rectum and distal sigmoid por tions the colon are decompressed. No free air, free fluid or inflammatory stranding. No hernia, mass or bulky lymphadenopathy. No suspicious bony findings. IMPRESSION: Contrast enhanced CT abdomen and pelvis showing no acute or emergent finding. No suspicious change from the January 2019 study.
[2020-02-08] MEDS ORDERED: CIPROFLOXACIN 400mg IV 400 MG/200 ML BAG IV ONE (12:57)
[2020-02-08] MEDS ORDERED: METRONIDAZOLE 500mg IVPB 500 MG/100 ML BAG IV ONE (12:57)
[2020-02-08] MEDS ORDERED: FENTANYL CITR 100 MCG/2 ML ONE ×2 (12:57→14:36)
--- NOTE | 2020-02-08 12:57 | EDPHYS ---
Physician Documentation [facility] Name: Elizabeth Britton Age: 34 yrs Sex: Female : 1985 Arrival Date: 02/08/2020 Time: 08:50 Bed 19 Private MD: Gian George H ED Physician Epifanio James HPI: 02/07 09:06 This 34 yrs old Female presents to ER via Ambulatory with complaints of cp Abdominal Pain, Bloody Stools. 09:06 The patient presents with abdominal pain right lower quadrant. cp 09:06 Onset: The symptoms/episode began/occurred 2 day(s) ago. Associated signs and symptoms: cp Pertinent positives: blood in stools, 1 episode of bloody bowel movement today, Pertinent negatives: nausea and vomiting, anorexia, chest pain, constipation, diarrhea, dysuria, fever, vaginal discharge. The symptoms are described as achy. Severity of pain: in the emergency department the pain is unchanged despite home interventions. Historical: - Allergies: 08:56 No Known Allergies; iw - Home Meds: 08:56 Xarelto 20 mg oral tab 1 tab once daily [Active]; iw - PMHx: 08:56 blood clot in lung; iw - PSHx: 08:56 ; Hysterectomy; breast augmentation; iw - Immunization history:: Adult Immunizations up to date. - Social history:: Smoking status: . ROS: 09:15 Constitutional: Negative for body aches, chills, fever, poor PO intake. cp 09:15 Eyes: Negative for injury, pain, redness, and discharge. cp 09:15 ENT: Negative for ear pain, sore throat, difficulty swallowing, difficulty handling secretions. 09:15 Cardiovascular: Negative for chest pain, palpitations. 09:15 Respiratory: Negative for cough, shortness of breath, wheezing. 09:15 Abdomen/GI: Positive for abdominal pain, rectal bleeding, of the right lower quadrant, Negative for vomiting, diarrhea, constipation, anorexia. 09:15 Back: Negative for radiated pain. 09:15 : Negative for urinary symptoms. 09:15 Neuro: Negative for altered mental status, dizziness, headache, syncope, weakness. 09:15 All other systems are negative. Exam: 09:20 Constitutional: The patient appears in no acute distress, alert, awake, non-toxic, well cp developed, well nourished. 09:20 Head/Face: Normocephalic, atraumatic. cp 09:20 Eyes: Periorbital structures: appear normal, Conjunctiva: normal, no exudate, no injection, Sclera: no appreciated abnormality, Lids and lashes: appear normal, bilaterally. 09:20 ENT: External ear(s): are unremarkable, Nose: is normal, Mouth: Lips: moist, Oral mucosa: moist, Posterior pharynx: Airway: no evidence of obstruction, patent. 09:20 Chest/axilla: Inspection: normal, Palpation: is normal, no crepitus, no tenderness. 09:20 Cardiovascular: Rate: normal, Rhythm: regular. 09:20 Respiratory: the patient does not display signs of respiratory distress, Respirations: normal, no use of accessory muscles, no retractions, labored breathing, is not present, Breath sounds: are clear throughout, no decreased breath sounds, no stridor, no wheezing. 09:20 Abdomen/GI: Inspection: abdomen appears normal, Bowel sounds: active, all quadrants, Palpation: soft, moderate abdominal tenderness, in the right lower quadrant, rebound tenderness, is not appreciated, voluntary guarding, is elicited in the right lower quadrant, involuntary guarding, is not appreciated, Rectal exam: Stool: brown, guaiac positive. 09:20 Back: CVA tenderness, is absent. 09:20 Neuro: Orientation: to person, place \T\ time. Mentation: is normal, Motor: moves all fours, strength is normal. Vital Signs: 08:53 BP 123 / 90; Pulse 99; Resp 16; Temp 98.8; Pulse Ox 100% on R/A; Weight 71.21 kg; iw Height 5 ft. 2 in. (157.48 cm); Pain 6/10; 11:01 BP 102 / 77; Pulse 74; Resp 16; Pulse Ox 100% on R/A; ph 11:56 BP 106 / 80; Pulse 81; Resp 18; Pulse Ox 98% on R/A; ph 13:00 BP 113 / 88; Pulse 76; Resp 16; Pulse Ox 98% on R/A; zb 14:15 BP 130 / 101; Pulse 74; Resp 16 S; Pulse Ox 100% on R/A; ca1 14:56 BP 105 / 73; Pulse 65; Resp 16; Temp 98.0; Pulse Ox 100% on R/A; zb 08:53 Body Mass Index 28.72 (71.21 kg, 157.48 cm) iw MDM: 08:59 Patient medically screened. cp 10:00 Differential diagnosis: appendicitis, gastritis, GI Bleed, non-specific abd pain, cp pancreatitis, Pelvic Inflammatory Disease, Ureterolithiasis, urinary tract infection, colitis, diverticulitis. 12:18 Physician consultation: Dario Love MD was called at 12:15, left message on voicemail. 12:52 Physician consultation: Dario Love MD was contacted at 12:45, regarding consult, cp patient's condition. 12:55 Physician consultation: Chandrakant Anderson MD was called at 12:55, was contacted at 12:55, regarding admission, to the medical/surgical unit. patient's condition, and will see patient in ED, shortly. 13:00 Data reviewed: vital signs, nurses notes, lab test result(s), radiologic studies, CT cp scan, I have discussed the patient's presentation/case with the attending Emergency Department Physician; and as a result, I will admit patient. 13:00 Counseling: I had a detailed discussion with the patient and/or guardian regarding: the cp historical points, exam findings, and any diagnostic results supporting the discharge/admit diagnosis, lab results, radiology results, the need for further work-up and treatment in the hospital. Response to treatment: the patient's symptoms have markedly improved after treatment. 02/07 09:09 Order name: Basic Metabolic Panel; Complete Time: 10:04 02/07 10:04 Interpretation: Normal except: CA 8.3. 02/07 09:09 Order name: CBC with Diff; Complete Time: 10:04 02/07 10:04 Interpretation: Normal except: MN% 14.5. 02/07 09:09 Order name: Hepatic Function; Complete Time: 10:04 cp 02/07 10:04 Interpretation: Normal except: AST 38; ALB 3.3; GLOB 4.3; A/G 0.8. 02/07 09:09 Order name: Lipase; Complete Time: 10:04 cp 02/07 09:09 Order name: PT-INR; Complete Time: 10: cp 02/07 10:04 Interpretation: Normal except: PT 19.9. cp 02/07 09:09 Order name: Ptt, Activated; Complete Time: 10:04 cp 02/07 10:05 Interpretation: Abnormal: PTT 37.1. cp 02/07 09:10 Order name: CT Abd/Pelvis - PO and IV Contrast; Complete Time: 12:11 cp 02/07 09:09 Order name: IV Saline Lock; Complete Time: 09:37 cp 02/07 09:09 Order name: Labs collected and sent; Complete Time: 09:37 cp 02/07 13:58 Order name: CONS Physician Consult EDMS Administered Medications: 09:50 Drug: ProTONIX 40 mg Route: IVP; Site: left antecubital; zb 11:52 Follow up: Response: No adverse reaction ph 09:51 Drug: NS 0.9% 1000 ml Route: IV; Rate: 1 bolus; Site: left antecubital; zb 11:53 Follow up: Response: No adverse reaction; IV Status: Completed infusion; IV Intake: ph 1000ml 09:51 Drug: morphine 2 mg Route: IVP; Site: left antecubital; zb 11:52 Drug: morphine 2 mg Route: IVP; Site: left antecubital; ph 11:53 Follow up: Response: No adverse reaction; Pain is unchanged, physician notified ph 13:05 Drug: Cipro 400 mg Volume: 200 ml; Route: IVPB; Infused Over: 60 mins; Site: left ph antecubital; 15:10 Follow up: Response: No adverse reaction; IV Status: Completed infusion zb 13:05 Drug: fentaNYL (PF) 25 mcg Route: IVP; Site: left antecubital; ph 13:30 Follow up: Response: No adverse reaction; Pain is decreased; RASS: Alert and Calm (0) zb 13:10 Drug: metroNIDAZOLE 500 mg Volume: 100 ml; Route: IVPB; Infused Over: 30 mins; Site: ph left antecubital; 13:40 Follow up: Response: No adverse reaction; IV Status: Completed infusion zb 13:15 Drug: Bentyl 20 mg Route: IM; Site: right deltoid; ph 15:11 Follow up: Response: No adverse reaction zb 14:26 Drug: fentaNYL (PF) 25 mcg {Note: rass 0.} Route: IVP; Site: left antecubital; ca1 15:11 Follow up: Response: No adverse reaction; Pain is decreased; RASS: Alert and Calm (0) zb 14:56 Drug: ProTONIX 8 mg/hr Route: IV; Rate: 25 ml/hr; Site: left antecubital; zb 15:10 Follow up: Response: No adverse reaction; IV Status: Infusion continued upon admission zb Disposition: 02/08 06:44 Co-signature as Attending Physician, Epifanio James MD I agree with the assessment and kdr plan of care. Disposition: 02/08/20 12:56 Hospitalization ordered by Chandrakant Anderson for Inpatient Admission. Preliminary diagnosis are Gastrointestinal hemorrhage, unspecified, Lower abdominal pain, unspecified. - Bed requested for Telemetry/MedSurg (Inpatient). - Status is Inpatient Admission. ph - Condition is Stable. - Problem is new. - Symptoms have improved. Signatures: Dispatcher [employer] EDMS Epifanio James MD MD kdr Patti Mi RN RN iw Leland Cassidy em1 Loretta Chung RN RN Igor Orr PA PA cp Penelope Ashford RN RN [facility] Sofia Estevez RN RN zb Corrections: (The following items were deleted from the chart) 02/07 10:04 10:04 Normal except. cp cp 10:46 09:09 Urine Test ordered. cp ph 14:53 12:56 Hospitalization Ordered by Chandrakatn Anderson MD for Inpatient Admission. Preliminary em1 diagnosis is Gastrointestinal hemorrhage, unspecified; Lower abdominal pain, unspecified. Bed requested for Telemetry/MedSurg (Inpatient). Status is Inpatient Admission. Condition is Stable. Problem is new. Symptoms have improved. cp 15:41 14:53 02/08/2020 12:56 Hospitalization Ordered by Chandrakant Anderson MD for Inpatient ph Admission. Preliminary diagnosis is Gastrointestinal hemorrhage, unspecified; Lower abdominal pain, unspecified. Bed requested for Telemetry/MedSurg (Inpatient). Status is Inpatient Admission. Condition is Stable. Problem is new. Symptoms have improved. em1
--- NOTE | 2020-02-08 12:57 | ER ---
Nurse's Notes [facility] Name: Elizabeth Britton Age: 34 yrs Sex: Female : 1985 Arrival Date: 02/08/2020 Time: 08:50 Bed 19 Private MD: Gian George H Diagnosis: Gastrointestinal hemorrhage, unspecified;Lower abdominal pain, unspecified Presentation: 02/07 08:53 Chief complaint: Patient states: sever abd pain since yesterday, woke up this morning iw and had bright red blood in her stool, is currently on blood thinners, has hx of blood clots in her lungs. Coronavirus screen: At this time, the client does not indicate any symptoms associated with coronavirus-19. Ebola Screen: Patient negative for fever greater than or equal to 101.5 degrees Fahrenheit, and additional compatible Ebola Virus Disease symptoms Patient denies exposure to infectious person. Patient denies travel to an Ebola-affected area in the 21 days before illness onset. No symptoms or risks identified at this time. Initial Sepsis Screen: Does the patient meet any 2 criteria? No. Patient's initial sepsis screen is negative. Does the patient have a suspected source of infection? No. Patient's initial sepsis screen is negative. Risk Assessment: Do you want to hurt yourself or someone else? Patient reports no desire to harm self or others. Onset of symptoms was February 07, 2020. 08:53 Method Of Arrival: Ambulatory iw 08:53 Acuity: BE 3 iw Historical: - Allergies: 08:56 No Known Allergies; iw - Home Meds: 08:56 Xarelto 20 mg oral tab 1 tab once daily [Active]; iw - PMHx: 08:56 blood clot in lung; iw - PSHx: 08:56 ; Hysterectomy; breast augmentation; iw - Immunization history:: Adult Immunizations up to date. - Social history:: Smoking status: . Screenin:38 Abuse screen: Denies threats or abuse. Denies injuries from another. Nutritional ph screening: No deficits noted. Tuberculosis screening: No symptoms or risk factors identified. Fall Risk None identified. Assessment: 09:15 General: Appears in no apparent distress. uncomfortable, well groomed, Behavior is ph calm, cooperative, appropriate for age, Denies fever, feeling ill. Pain: Complains of pain in abdomen. Neuro: Level of Consciousness is awake, alert, obeys commands, Oriented to person, place, time, situation, Denies weakness dizziness. Cardiovascular: Capillary refill < 3 seconds in bilateral fingers Patient's skin is warm and dry. Respiratory: Airway is patent Respiratory effort is even, unlabored, Respiratory pattern is regular, symmetrical, Denies shortness of breath. GI: Abdomen is round non-distended, Reports lower abdominal pain, upper abdominal pain, rectal bleeding, bloody stool. : No signs and/or symptoms were reported regarding the genitourinary system. Derm: Skin is intact, is healthy with good turgor, Skin is pink, warm \T\ dry. Musculoskeletal: Circulation, motion, and sensation intact. Range of motion: intact in all extremities. 10:30 Reassessment: Patient appears in no apparent distress at this time. Patient and/or ph family updated on plan of care and expected duration. Pain level reassessed. Patient is alert, oriented x 3, equal unlabored respirations, skin warm/dry/pink. Awaiting CT scan. 11:30 Reassessment: Patient appears in no apparent distress at this time. Patient and/or ph family updated on plan of care and expected duration. Pain level reassessed. Patient is alert, oriented x 3, equal unlabored respirations, skin warm/dry/pink. Pt returned from CT, c/o abdominal pain. 14:26 Reassessment: Pt c/o abdominal pain 11/16. Notified provider. VO Fentanyl 25mcg IV now. ca1 Meds ordered and given. 15:12 Reassessment: Patient appears in no apparent distress at this time. Patient and/or zb family updated on plan of care and expected duration. Pain level reassessed. Patient is alert, oriented x 3, equal unlabored respirations, skin warm/dry/pink. Report called to second floor. Vital Signs: 08:53 BP 123 / 90; Pulse 99; Resp 16; Temp 98.8; Pulse Ox 100% on R/A; Weight 71.21 kg; iw Height 5 ft. 2 in. (157.48 cm); Pain 6/10; 11:01 BP 102 / 77; Pulse 74; Resp 16; Pulse Ox 100% on R/A; ph 11:56 BP 106 / 80; Pulse 81; Resp 18; Pulse Ox 98% on R/A; ph 13:00 BP 113 / 88; Pulse 76; Resp 16; Pulse Ox 98% on R/A; zb 14:15 BP 130 / 101; Pulse 74; Resp 16 S; Pulse Ox 100% on R/A; ca1 14:56 BP 105 / 73; Pulse 65; Resp 16; Temp 98.0; Pulse Ox 100% on R/A; zb 08:53 Body Mass Index 28.72 (71.21 kg, 157.48 cm) iw ED Course: 08:50 Patient arrived in ED. as 08:50 Gian George DO is Private Physician. as 08:55 Triage completed. iw 08:56 Arm band placed on. iw 08:57 Igor Orr PA is PHCP. cp 08:57 Epifanio James MD is Attending Physician. cp 09:08 Loretta Chung, GURMEET is Primary Nurse. ph 09:37 Inserted saline lock: 22 gauge in left antecubital area, using aseptic technique. Blood ph collected. 11:21 CT Abd/Pelvis - PO and IV Contrast In Process Unspecified. EDMS 12:56 Chandrakant Anderson MD is Hospitalizing Provider. cp 14:54 Patient has correct armband on for positive identification. Placed in gown. Bed in low zb position. Call light in reach. Side rails up X2. Pulse ox on. NIBP on. Door closed. Warm blanket given. Pillow given. 14:54 No provider procedures requiring assistance completed. Patient admitted, IV remains in zb place. Administered Medications: 09:50 Drug: ProTONIX 40 mg Route: IVP; Site: left antecubital; zb 11:52 Follow up: Response: No adverse reaction ph 09:51 Drug: NS 0.9% 1000 ml Route: IV; Rate: 1 bolus; Site: left antecubital; zb 11:53 Follow up: Response: No adverse reaction; IV Status: Completed infusion; IV Intake: ph 1000ml 09:51 Drug: morphine 2 mg Route: IVP; Site: left antecubital; zb 11:52 Drug: morphine 2 mg Route: IVP; Site: left antecubital; ph 11:53 Follow up: Response: No adverse reaction; Pain is unchanged, physician notified ph 13:05 Drug: Cipro 400 mg Volume: 200 ml; Route: IVPB; Infused Over: 60 mins; Site: left ph antecubital; 15:10 Follow up: Response: No adverse reaction; IV Status: Completed infusion zb 13:05 Drug: fentaNYL (PF) 25 mcg Route: IVP; Site: left antecubital; ph 13:30 Follow up: Response: No adverse reaction; Pain is decreased; RASS: Alert and Calm (0) zb 13:10 Drug: metroNIDAZOLE 500 mg Volume: 100 ml; Route: IVPB; Infused Over: 30 mins; Site: ph left antecubital; 13:40 Follow up: Response: No adverse reaction; IV Status: Completed infusion zb 13:15 Drug: Bentyl 20 mg Route: IM; Site: right deltoid; ph 15:11 Follow up: Response: No adverse reaction zb 14:26 Drug: fentaNYL (PF) 25 mcg {Note: rass 0.} Route: IVP; Site: left antecubital; ca1 15:11 Follow up: Response: No adverse reaction; Pain is decreased; RASS: Alert and Calm (0) zb 14:56 Drug: ProTONIX 8 mg/hr Route: IV; Rate: 25 ml/hr; Site: left antecubital; zb 15:10 Follow up: Response: No adverse reaction; IV Status: Infusion continued upon admission zb Intake: 11:53 IV: 1000ml; Total: 1000ml. ph Outcome: 12:56 Decision to Hospitalize by Provider. cp 15:41 Patient left the ED. ph 15:41 Admitted to Med/surg accompanied by tech, via wheelchair, with chart. ph 15:41 Condition: stable 15:41 Instructed on the need for admit. Signatures: Dispatcher [employer] Sherrie Garcia Irene, RN RN iw Loretta Chung RN RN ph Igor Orr PA PA cp Penelope Ashford RN RN ca1 Sofia Estevez RN RN zshaunna
[2020-02-08] MEDS ORDERED: DICYCLOMINE HCL 20 MG/2 ML AMP IM ONE (13:20)
--- NOTE | 2020-02-08 14:32 | P.HP ---
Certification for Inpatient Patient admitted to: Observation With expected LOS: <2 Midnights Practitioner: I am a practitioner with admitting privileges, knowledge of patient current condition, hospital course, and medical plan of care. Services: Services provided to patient in accordance with Admission requirements found in Title 42 Section 412.3 of the Code of Federal Regulations Patient History Date of Service: 02/08/20 Reason for admission: GI bleed History of Present Illness: 34yo female, PMH: prior PE (now on anticoagulation), migraines, presents to ED after episode of bright red blood with bowel movement this morning. She reports progressively worsening abdominal pain that had began he yesterday afternoon. She describes the pain as a bruised feeling all over her abdomen, worse in her right lower quadrant. Nothing in particular seems to aggravate or alleviate the pain. He has continued to get worse since yesterday. She had a bowel movement yesterday shortly after having the pain common reports there was an undigested vegetable that felt stuck and she had to pull this peace with the stool in order to pass it. This morning she had a bowel movement with bright red blood. She reports a few episodes of having small drops of bright red blood/red blood along her stool several years ago. She otherwise denies any recent constipation. She denies nausea/vomiting, no fevers/chills, no shortness of breath, chest pain. She was otherwise in her usual state of health up until yesterday when the pain began all of a sudden. In the ED, her vitals were within normal limits and stable, labwork revealed a normal hemoglobin of 13.5, CMP with his unremarkable. A CT abdomen/pelvis with IV and oral contrast was performed and there are no acute or emergent findings. She did note a few small mesenteric lymph nodes seen in the right lower quadrant. No comment on the appendix. GI was consulted, who recommended Protonix strip, bleeding scan, and admission for further monitoring. Allergies No Known Drug Allergies Allergy (Verified 04/02/14 20:59) Unknown No Known Allergies Allergy (Uncoded 07/11/17 04:04) Unknown Home Medications: Acetaminophen [Tylenol Extra Strength] 500 mg PO Q4HP PRN 12/02/19 Apixaban [Eliquis] 5 mg PO DIRECTED 30 Days #70 tab 12/03/19 Lidocaine 4% Patch [Lidoderm 5% Patch*] 2 patch TOP DAILY PRN 7 Days #14 patch 12/04/19 Topiramate [Topamax*] 25 mg PO BEDTIME 30 Days #30 tab 12/04/19 Tramadol HCl 100 mg PO Q6HP PRN 6 Days #24 tablet 12/04/19 - Past Medical/Surgical History Diabetic: No -: hx of b/l Pulmonary embolism 2013 -: collapsed lung 2006 -: hx of PE (2019) -: c/s x4 2007 -: Breast augmentation October 2019 -: hysterectomy Psychosocial/ Personal History: Lives at home - Family History Mother -: Lung disease, Other (see notes) Notes: pulmonary embolism - Social History Smoking Status: Never smoker Alcohol use: No CD- Drugs: No Caffeine use: No Place of Residence: Home Review of Systems 10-point ROS is otherwise unremarkable Physical Examination - Physical Exam General: Alert, In no apparent distress, Oriented x3 HEENT: Sclerae nonicteric Neck: Supple Respiratory: Clear to auscultation bilaterally, Normal air movement Cardiovascular: No edema, Regular rate/rhythm, Normal S1 S2 Gastrointestinal: Soft and benign, Non-distended, No guarding, Tenderness (mild diffuse, moderate in RLQ. no rebound) Integumentary: No rashes, No tenderness/swelling Neurological: Normal speech, Normal affect - Studies Laboratory Data (last 24 hrs) 02/08/20 09:27: PT 19.9 H, INR 1.70, APTT 37.1 H 02/08/20 09:27: WBC 6.0, Hgb 13.5, Hct 40.6, Plt Count 274 02/08/20 09:27: Sodium 138, Potassium 3.7, BUN 9, Creatinine 0.70, Glucose 88, Total Bilirubin 0.5, AST 38 H, ALT 60, Alkaline Phosphatase 94, Lipase 147 Assessment and Plan - Advance Directives Does patient have a Living Will: No Does patient have a Durable POA for Healthcare: No Physician Review Additional Text: GI Bleed Abdominal Pain h/o PE -BRBR - concerning for lower GI bleed -history consistent with likely internal hemorrhoid -possible internal hemorrhoid bleed from abnormal BM yesterday -ED reported maroon-brown stool when checking hemoccult - possible UGI bleed -GI consulted - continue Protonix drip, CLD, bleeding scan, NPO after midnight -check H/H q6hr -serial abdominal exams -unclear etiology of abdominal pain, ?appendicitis vs mesenteric adenitis vs viral enteritis vs ulcer. - no systemic signs of infection -afebrile, no leukocytosis, and does not appear septic; received Cipro and Flagyl in the ED -CT abdomen/pelvis without any acute findings, noted small mesenteric lymph nodes in RLQ VTE: SCDs in setting of GI bleed Code: full Dispo: anticipate dc home in 24-48 hrs
[2020-02-08] MEDS ORDERED: PANTOPRAZOLE INJ 80 MG in NA CHLORIDE 0.9% 250 ML IV SCH (15:00)
[2020-02-08] MEDS ORDERED: NA CHLORIDE 0.9% 250 ML IV SCH (15:44)
[2020-02-08] MEDS ORDERED: MORPHINE 4 MG/ML SYR IV PRN (15:44)
[2020-02-08] MEDS: PANTOPRAZOLE INJ 80 MG in NA CHLORIDE 0.9% 250 ML IV SCH (15:57)
[2020-02-08 16:17] VITALS: BMI 28.7
[2020-02-08] MEDS: FENTANYL CITR 100 MCG/2 ML IV PRN (20:51)
[2020-02-08 22:01] LABS: Hematocrit 37.1 % (36.0-45.0)
[2020-02-09] MEDS: PANTOPRAZOLE INJ 80 MG in NA CHLORIDE 0.9% 250 ML IV SCH (02:28)
[2020-02-09] MEDS: FENTANYL CITR 100 MCG/2 ML IV PRN ×2 (02:29→08:54)
[2020-02-09 04:10] LABS: Absolute Lymphocytes (CBC) 1.9 K/uL (0.7-4.9); Basophils % 0.9 % (0-1.3); Hematocrit 36.9 % (36.0-45.0); Lymphocytes % 41.1 % (15.3-44.8); MPV 9.1 fL (7.6-11.3); Protime INR 1.3; RBC Red Blood Cell Count 4.37 M/uL (3.86-4.86)
[2020-02-09 04:28] LABS: ALT/SGPT 44 U/L (12-78); AST/SGOT 29 U/L (15-37); Albumin 2.6 g/dL (3.4-5.0); Alkaline Phosphatase 76 U/L (45-117); BUN Blood Urea Nitrogen 7 mg/dL (7-18); Bicarbonate 24 mmol/L (21-32); Bilirubin Total 0.2 mg/dL (0.2-1.0); Glucose Level 86 mg/dL (74-106); Potassium 3.4 mmol/L (3.5-5.1); Protein, Total 6.1 g/dL (6.4-8.2); Sodium Level 141 mmol/L (136-145)
[2020-02-09] MEDS ORDERED: NA CHLORIDE 0.9% 1,000 ML IV SCH (09:00)
--- NOTE | 2020-02-09 09:06 | RAD REPORT ---
EXAM DESCRIPTION: NM - GI Blood Loss Imaging - 02/09/2020 8:23 am CLINICAL HISTORY: GI bleed, unknown source COMPARISON: Abdomen Pelvis W Contrast dated 02/08/2020 FINDINGS: The patient was administered 26.4 millicuries technetium labeled RBCs. No active GI bleedi ng is seen during the examination. IMPRESSION: Negative for active GI bleeding.
[2020-02-09] MEDS ORDERED: HYDROCODONE/APAP 5/325 MG TAB PO PRN (11:18)
[2020-02-09] MEDS: METRONIDAZOLE 500mg IVPB 500 MG/100 ML BAG IV SCH ×2 (11:46→16:42)
[2020-02-09] MEDS: CIPROFLOXACIN 400mg IV 400 MG/200 ML BAG IV SCH ×2 (11:47→20:11)
[2020-02-09] MEDS ORDERED: MAGNESIUM CITRATE 300 ML BOT PO SCH (13:00)
[2020-02-09] MEDS ORDERED: GOLYTELY 4000 ML PO SCH (14:00)
[2020-02-09] MEDS: ONDANSETRON 4 MG/2 ML VIAL IV PRN ×2 (14:14→21:08)
[2020-02-09] MEDS ORDERED: PROMETHAZINE INJ 25 MG/ML AMP IV PRN (14:15)
[2020-02-09] MEDS: ENOXAPARIN 40 MG/0.4 ML SQ SCH (14:42)
[2020-02-09] MEDS: HYDROMORPHONE HCL 1 MG/ML INJ IV PRN ×2 (14:43→20:10)
[2020-02-09] MEDS: NA CHLORIDE 0.9% 1,000 ML IV SCH ×3 (14:44→20:12)
--- NOTE | 2020-02-09 16:29 | P.PN ---
Subjective Date of Service: 02/09/20 Chief Complaint: Abdominal pain, GI bleed Subjective: No new changes (The patient continues with abdominal pain, somewhat temporarily improved with pain medication Reports 2-3 BMs overnight and this morning, no more blood seen. No nausea/vomiting) Review of Systems 10-point ROS is otherwise unremarkable Physical Examination - Vital Signs Temperature: 97.5 F Blood Pressure: 102/69 Pulse: 59 Respirations: 16 Pulse Ox (%): 97 - Physical Exam General: Alert, Mild distress (Appears uncomfortable) HEENT: Mucous membr. moist/pink, Sclerae nonicteric Respiratory: Clear to auscultation bilaterally, Normal air movement Cardiovascular: No edema, Regular rate/rhythm Gastrointestinal: Soft and benign, Non-distended, Tenderness (Diffuse mild tenderness, most severe in suprapubic area. No rebound) Musculoskeletal: No tenderness Integumentary: No rashes Neurological: Normal speech, Normal affect Assessment & Plan Physician Review Additional Text: GI Bleed Abdominal Pain h/o PE Hypotension -BRBR - concerning for lower GI bleed, has had multiple BMs without blood so far. Possible internal hemorrhoid -CT abdomen/pelvis without any acute findings, noted small mesenteric lymph nodes in RLQ -bleeding scan negative for any GI bleed, discontinue Protonix drip -discussed case with GI- concern for possible ischemic colitis given her history of this unknown clotting disorder despite extensive workup -patient reports history of borderline blood pressures, she is hypotensive here with pain medication, will also give IV fluids -CLD, IVF -MRA ordered -serial abdominal exams -continue Cipro and Flagyl, pain medication VTE: Lovenox Code: full Dispo: anticipate dc home in 24-48 hrs Time Spent Managing Pts Care (In Minutes): 35
--- NOTE | 2020-02-09 17:02 | RAD REPORT ---
EXAM DESCRIPTION: MRI - MRA Abdomen W/Cont - 02/09/2020 4:35 pm CLINICAL HISTORY: Abdominal pain COMPARISON: Contrast CT abdomen and pelvis February 07 TECHNIQUE: Coronal heavily T2 weighted and axial T1 weighted and T2 haste sequences were obtained. C oronal acquisition plane utilized during 40 milliliter MultiHance contrast volume administration. Cor onal postcontrast re-formatted images were generated and reviewed. Horizontal and vertical axes 3D ro tational images obtained using maximum intensity projection protocol. FINDINGS: Aorta and iliac vasculature show no abnormalities. Single renal artery supply each kidney in show no suspicious finding. The celiac, superior mesenteric and inferior mesenteric arteries are well visualized and show no evid ence for thrombus or other intraluminal filling defect. No fibromuscular dysplasia or vessel abnormal ity identified. Mesenteric vasculature is seen well into far peripheral branch level. No MRA finding that would suggest mesenteric ischemia. IMPRESSION: Negative MRA abdomen examination.
[2020-02-10] MEDS: NA CHLORIDE 0.9% 1,000 ML IV SCH ×2 (01:00→09:00)
[2020-02-10] MEDS ORDERED: NA CHLORIDE 0.9% 1,000 ML IV ONE (01:04)
[2020-02-10] MEDS: METRONIDAZOLE 500mg IVPB 500 MG/100 ML BAG IV SCH ×2 (01:18→09:08)
[2020-02-10] MEDS ORDERED: NA CHLORIDE 0.9% 1,000 ML ONE (01:25)
[2020-02-10] MEDS: HYDROMORPHONE HCL 1 MG/ML INJ IV PRN (02:18)
[2020-02-10] MEDS: ONDANSETRON 4 MG/2 ML VIAL IV PRN ×2 (02:18→09:08)
--- NOTE | 2020-02-10 02:47 | P.HP ---
Date of Service: 02/10/20 Patient with episode of hypotension with blood pressure 87 systolic, patient not symptomatic at that time, given normal saline IV fluid bolus. Follow up blood pressure 99 systolic. Patient requesting IV Dilaudid for abdominal pain. At this time given recent significant hypotension and current systolic blood pressure it would not be safe to give additional narcotic pain medication. Will hold Dilaudid at this time until blood pressure improves for patient safety. Patient upset, stating that her blood pressure always runs low and that is unrelated to the pain medication. Attempted to explain to the patient that even though her blood pressure may routinely run low narcotic pain medication does have significant effect on blood pressure and I am not comfortable giving her additional doses at this time. Will continue to check blood pressure at intervals and give pain medication when safe. May substitute with fentanyl temp orarily as as less effect on blood pressure.
[2020-02-10 04:25] LABS: Absolute Lymphocytes (CBC) 1.6 K/uL (0.7-4.9); Basophils % 1.2 % (0-1.3); Hematocrit 35.5 % (36.0-45.0); Lymphocytes % 38.4 % (15.3-44.8); MPV 9.1 fL (7.6-11.3); RBC Red Blood Cell Count 4.18 M/uL (3.86-4.86)
[2020-02-10 04:46] LABS: ALT/SGPT 35 U/L (12-78); AST/SGOT 21 U/L (15-37); Albumin 2.5 g/dL (3.4-5.0); Alkaline Phosphatase 68 U/L (45-117); BUN Blood Urea Nitrogen 4 mg/dL (7-18); Bicarbonate 26 mmol/L (21-32); Bilirubin Total 0.3 mg/dL (0.2-1.0); Glucose Level 88 mg/dL (74-106); Potassium 3.5 mmol/L (3.5-5.1); Protein, Total 5.8 g/dL (6.4-8.2); Sodium Level 142 mmol/L (136-145)
[2020-02-10] MEDS ORDERED: HYDROMORPHONE HCL 0.5 MG/0.5 ML INJ IV ONE (08:53)
[2020-02-10] MEDS: CIPROFLOXACIN 400mg IV 400 MG/200 ML BAG IV SCH (09:09)
[2020-02-10] MEDS: ENOXAPARIN 40 MG/0.4 ML SQ SCH (09:09)
[2020-02-10 09:59] VITALS: O2SAT 98
[2020-02-10] MEDS ORDERED: ACETAMIN/CAFFEINE/BUTALB TAB PO ONE (10:04)
--- NOTE | 2020-02-10 11:05 | P.DS ---
Admission Date: 02/08/20 Discharge Date: 02/10/20 Disposition: ROUTINE DISCHARGE Discharge Condition: FAIR Reason for Admission: Abdominal pain, GI bleed Consultations: GI-Dr. Love. Brief History of Present Illness: 34-year-old woman with a history of multiple pulmonary embolism, suspected clotting disorder on Xarelto anticoagulation presented to the emergency department with a complaint of an episode of rectal bleed and abdominal pain. Workup in the emergency department was unremarkable. CT abdomen unremarkable. Patient was subsequently hospitalized for further evaluation. Hospital Course: Patient hospitalized and treated with supportive measures including IV hydromorphone for pain, IV hydration, and antiemetics. He was also treated with IV ciprofloxacin and Flagyl for infectious colitis. Bleeding scan was performed which is negative for active bleeding. Patient was seen and evaluated by Dr. Love who ordered stool studies and MRA of the abdomen to assess for ischemic bowel. MRA performed was normal. Stool studies including stool for C. diff and stool culture are pending to be followed byGI. She has had no bloody stools since hospitalization. No vomiting. Patient has tolerated diet advancement. Patient reports prior history of rectal bleed after bowel movements suggesting possible internal hemorrhoids. Dr. Love recommend outpatient colonoscopy. Patient is discharged to follow with Dr. Love within 1 to 2 weeks. Xarelto is resumed on discharge since patient have had no rectal bleed since hospitalization. Vital Signs/Physical Exam: Temp Pulse Resp BP Pulse Ox 97.4 F 68 18 88/63 L 97 02/10/20 08:00 02/10/20 08:00 02/10/20 09:05 02/10/20 08:00 02/10/20 09:05 General: Alert, In no apparent distress Neck: Supple Respiratory: Clear to auscultation bilaterally, Normal air movement Cardiovascular: No edema, Regular rate/rhythm Integumentary: No rashes Laboratory Data at Discharge: WBC 4.2 K/uL (4.3-10.9) L 02/10/20 03:38 Hgb 12.0 g/dL (12.0-15.0) 02/10/20 03:38 Hct 35.5 % (36.0-45.0) L 02/10/20 03:38 Plt Count 207 K/uL (152-406) 02/10/20 03:38 PT 15.3 SECONDS (9.5-12.5) H 02/09/20 03:43 INR 1.30 02/09/20 03:43 APTT 37.1 SECONDS (24.3-36.9) H 02/08/20 09:27 Sodium 142 mmol/L (136-145) 02/10/20 03:38 Potassium 3.5 mmol/L (3.5-5.1) 02/10/20 03:38 BUN 4 mg/dL (7-18) L 02/10/20 03:38 Creatinine 0.62 mg/dL (0.55-1.3) 02/10/20 03:38 Glucose 88 mg/dL (74-106) 02/10/20 03:38 Magnesium 2.0 mg/dL (1.8-2.4) 02/10/20 03:38 Total Bilirubin 0.3 mg/dL (0.2-1.0) 02/10/20 03:38 AST 21 U/L (15-37) 02/10/20 03:38 ALT 35 U/L (12-78) 02/10/20 03:38 Alkaline Phosphatase 68 U/L (45-117) 02/10/20 03:38 Lipase 147 U/L (73-393) 02/08/20 09:27 Home Medications: Rivaroxaban [Xarelto] 20 mg PO DAILY 02/08/20 Ciprofloxacin HCl [Cipro 500 MG Tablet] 500 mg PO BID #20 tab 02/10/20 Tramadol HCl [Ultram] 50 mg PO TID PRN #20 tablet 02/10/20 metroNIDAZOLE [Flagyl] 500 mg PO Q8H #30 tablet 02/10/20 New Medications: Ciprofloxacin HCl [Cipro 500 MG Tablet] 500 mg PO BID #20 tab metroNIDAZOLE [Flagyl] 500 mg PO Q8H #30 tablet Tramadol HCl [Ultram] 50 mg PO TID PRN #20 tablet PRN Reason: PAIN Diet: Regular Activity: Ad trae Followup: Gian George DO, DO [Primary Care Provider] - 1-2 Weeks Dario Love MD [ASSOCIATE-ACTIVE - CAN ADMIT] - Time spent managing pt's care (in minutes): 40
[2020-02-10 12:56] VITALS: BP 96/52; TEMP 97.2
[2020-02-11 07:25] LABS: C.diff Antigen/Toxin Ag neg : Tox neg (NEG : NEG)
== END 2020-02-10 15:27 | disposition home or self-care (01) | DRG 378 ==
LOC: ER 08:48 → ERHOLD 13:57 → 2ND 15:10
PROVIDERS: ADMIT Hospitalist; ATTEND Internal Medicine
DX: K92.2 Gastrointestinal hemorrhage, unspecified (principal); A09 Infectious gastroenteritis and colitis, unspecified; I95.9 Hypotension, unspecified; R10.9 Unspecified abdominal pain; Z90.710 Acquired absence of both cervix and uterus; Z79.899 Other long term (current) drug therapy; Z79.01 Long term (current) use of anticoagulants; Z86.711 Personal history of pulmonary embolism
CPT/HCPCS: 36415; 74177; 78278; 80048; 80053; 80076; 83690; 83735; 85014; 85018; 85025; 85610; 85730; 86850; 86900; 86901; 87045; 87046; 87324; 87449; 96361; 96365; 96372; 96375; 99285; A9560; C9113; J0500; J0744; J1170; J1650; J2270; J2405; J2550; J3010; J7030; J7050; Q9967

== ENCOUNTER 2020-05-26 14:45 | Emergency (ER) | payer BC ==
[2020-05-26 15:22] LABS: Blood Gas Oxyhemoglobin 95.9 % (94-97); Blood O2 Saturation 96.8 % (92-98.5)
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
--- NOTE | 2020-05-26 15:36 | EDPHYS ---
Physician Documentation [facility] Name: Elizabeth Britton Age: 34 yrs Sex: Female : 1985 Arrival Date: 05/26/2020 Time: 14:48 Bed 22 Private MD: ED Physician Rowena Shi HPI: 05/26 15:32 This 34 yrs old Female presents to ER via Ambulatory with complaints of jmm Carbon Monoxide Exposure. 15:32 Onset: The symptoms/episode began/occurred today. The patient's shortness of breath is jmm aggravated by nothing, is alleviated by nothing. Associated signs and symptoms: Pertinent positives: nausea, abdominal pain. This is a 34 year old female with a history of PE that presents to [facility] with complaints of lightheadedness, headache, abdominal pain. Patient is concerned she may have been exposed to CO. . Historical: - Allergies: 15:00 No Known Drug Allergies; ll1 - Home Meds: 15:00 Xarelto 20 mg Oral tab 1 tab once daily [Active]; ll1 - PMHx: 15:00 blood clot in lung; ll1 - PSHx: 15:00 ; Hysterectomy; breast augmentation; ll1 - Immunization history:: Flu vaccine is not up to date. - Social history:: Smoking status: Patient denies any tobacco usage or history of. ROS: 15:32 Cardiovascular: Negative for chest pain, palpitations, and edema. jmm 15:32 Constitutional: Positive for fatigue. 15:32 Neuro: Positive for headache. 15:32 All other systems are negative. Exam: 15:32 Constitutional: This is a well developed, well nourished patient who is awake, alert, jmm and in no acute distress. Head/Face: atraumatic. Eyes: EOMI, no conjunctival erythema appreciated ENT: Moist Mucus Membranes Neck: Trachea midline, Supple Chest/axilla: Normal chest wall appearance and motion. Cardiovascular: Regular rate and rhythm. No edema appreciated Respiratory: Normal respirations, no respiratory distress appreciated Abdomen/GI: Non distended, soft Back: Normal ROM Skin: General appearance color normal MS/ Extremity: Moves all extremities, no obvious deformities appreciated, no edema noted to the lower extremities Neuro: Awake and alert, normal gait Psych: Behavior is normal, Mood is normal, Patient is cooperative and pleasant Vital Signs: 14:56 BP 111 / 85; Pulse 89; Resp 17; Temp 98.3; Pulse Ox 97% ; Weight 65.77 kg; Height 5 ft. ll1 2 in. (157.48 cm); Pain 6/10; 14:56 Body Mass Index 26.52 (65.77 kg, 157.48 cm) ll1 MDM: 15:27 Patient medically screened. zeferino 15:34 Data reviewed: vital signs, nurses notes. Counseling: I had a detailed discussion with zeferino the patient and/or guardian regarding: the historical points, exam findings, and any diagnostic results supporting the discharge/admit diagnosis, the need for outpatient follow up, to return to the emergency department if symptoms worsen or persist or if there are any questions or concerns that arise at home. ED course: ABG negative for CO. Patient states she feels much better. Patient is otherwise given strict return precautions. Patient understood and agrees with the plan of care. . 05/26 15:02 Order name: ABG Administered Medications: No medications were administered Disposition: 17:35 Co-signature as Attending Physician, Rowena Shi MD. ma2 Disposition: 05/26/20 15:35 Discharged to Home. Impression: Person with feared health complaint in whom no diagnosis is made. - Condition is Stable. - Discharge Instructions: Carbon Monoxide Poisoning. - Medication Reconciliation Form, Thank You Letter, Antibiotic Education, Prescription Opioid Use form. - Follow up: Private Physician; When: As needed; Reason: Recheck today's complaints, Continuance of care, Re-evaluation by your physician. Signatures: Dispatcher [employer] EDMS Guanaco Lyman PA PA jmm Smirch, Shelby RN Rowena Leyva MD MD ma2 Trena Abdul RN RN ll1 Corrections: (The following items were deleted from the chart) 15:50 15:35 05/26/2020 15:35 Discharged to Home. Impression: Person with feared health ss complaint in whom no diagnosis is made. Condition is Stable. Forms are Medication Reconciliation Form, Thank You Letter, Antibiotic Education, Prescription Opioid Use. Follow up: Private Physician; When: As needed; Reason: Recheck today's complaints, Continuance of care, Re-evaluation by your physician. jmm
[2020-05-26 16:05] VITALS: BP 111/85; TEMP 98.3; O2SAT 97
== END 2020-05-26 15:50 | disposition home or self-care (01) ==
LOC: ER 14:45
DX: R06.02 Shortness of breath (principal); Z71.1 Person with feared health complaint in whom no diagnosis is made
CPT/HCPCS: 82805; 99284

== ENCOUNTER → 2020-06-10 | Day surgery (SDC) | payer BC ==
[2020-06-09 13:51] LABS: Absolute Lymphocytes (CBC) 1.8 K/uL (0.7-4.9); Basophils % 1.1 % (0-1.3); Hematocrit 42.6 % (36.0-45.0); MPV 8.8 fL (7.6-11.3); RBC Red Blood Cell Count 5.04 M/uL (3.86-4.86)
[~2020-06-10] MED LIST: CEFAZOLIN/SWI 1gm 1 GM/10 ML SYR ONE; FENTANYL CITR 100 MCG/2 ML ONE; GLYCOPYRROLATE 0.2 MG/ML SYR ONE; HYDROCODONE/APAP 7.5/325 MG TAB ONE; KETOROLAC 30 MG/ML INJ ONE; LIDOCAINE 1% MPF 30 ML VIAL ONE; LIDOCAINE 1% W/EPI 1:100,000 MDV 20 ML VIAL ONE; LIDOCAINE 2% MPF 5 ML VIAL ONE; MIDAZOLAM HCL 2 MG/2 ML INJ ONE; NEOSTIGMINE 1 MG/ML -5 ML ONE; NS 0.9% VIAL 10 ML ONE; ONDANSETRON 4 MG/2 ML VIAL ONE; Phenylephrine HCl 10 MG/ML 1 ML VIAL ONE; ROCURONIUM 50 MG/5 ML VIAL IV ONE; Ringers Lactate 1,000 ML IV ONE; dexAMETHasone 10 MG/ML VIAL ONE; propofoL 200 MG/20 ML VIAL IV ONE
[2020-06-10 11:03] VITALS: TEMP 97.8; O2SAT 99
[2020-06-10 11:32] VITALS: BP 101/55
--- NOTE | 2020-06-10 11:49 | OP ---
Date of Procedure: 06/10/2020 Surgeon: Tony Mccoy MD Senior Payroll Specialist: None. Preoperative Diagnosis: Posterior neck mass. Postoperative Diagnosis: Posterior neck mass. Procedure Performed: Excision, posterior neck mass, 6 x 4 cm with layered closure. Estimated Blood Loss: Minimal. Specimen: Posterior neck mass. Findings: Fatty tumor. Anesthesia: General. Complications: None. Drains: Quarter-inch Mar[place]. Disposition: The patient tolerated the procedure in stable condition and taken back to ICU in good g eneral condition. Operative Note: The patient was brought to the OR and placed in supine position. General anesthesia was begun. The patient was placed in the prone position, prepped and draped in usual sterile fashio n. Then, Marcaine 0.5% was infiltrated locally. A 15-blade was used to make a 6 cm incision in the posterior midline in the upper part of the neck below the hair line. Subcutaneous tissue was divided . Deep to that, fatty tumor was identified and excised with sharp and blunt dissection all the way d own to the muscle layer and then sent to Pathology as specimen. Wound was irrigated. Bleeding was c ontrolled with cautery. A quarter-inch [place] drain placed and secured with 3-0 nylon, then 2-0 chr omic was used to approximate deep subcutaneous tissue and 3-0 chromic was used to approximate the ski n. Sterile dressing was applied. The patient was awakened and taken to Recovery in good general con dition. Discharge Note: The patient will go to Day Surgery and home when stable. Disposition: Home. Condition: Stable. Discharge Instructions: Resume home meds and diet. Activity as tolerated. No heavy lifting. Remov e outer dressing in 2 days. Shower. Keep wound clean, dry. Dry gauze to the wound daily. Tylenol N0.3 one tablet p.o. q.4 p.r.n. pain, Keflex 500 mg p.o. q.6. /MODL Voice ID: [id number] Report ID: [id number]
== END ==
LOC: OR 08:07
PROVIDERS: ATTEND Surgery
PROC: 0JB50ZZ Excision of Left Neck Subcutaneous Tissue and Fascia, Open Approach (ICD-10-PCS; principal; 2020-06-10 09:00)
DX: D17.0 Benign lipomatous neoplasm of skin and subcutaneous tissue of head, face and neck (principal); Z20.822 Contact with and (suspected) exposure to COVID-19
CPT/HCPCS: 11426; 85025; 36415; 88304; U0002; J2704; J2370; J2250; J3010; J1100; J2710; J0690; J7120; J2405; 88305

== ENCOUNTER 2020-06-19 12:06 | Emergency (ER) | payer BC ==
--- OUTSIDE RECORDS SUMMARY | 2020-06-19 12:08 | XMS REPORT | Continuity of Care Document ---
:1985 Author Organization [facility] t Address [address] [place] [address] Care Team Providers Name Role Phone [facility] Attending Clinician Unavailable Aubree OLGUIN, L Attending Clinician Payers Payer Name Policy Type Policy Number Effective Date Expiration Date S ource Problems This patient has no known problems. Allergies, Adverse Reactions, Alerts Allergy Allergy Status Severity Reaction(s) Onset Inactive Treating Comm ents Source Name Type Date Date Clinician No Known DA Active [facility] Allergie 10-02 Clear s 00:00: Mendoza [address] [place] [address] Medications This patient has no known medications. Procedures This patient has no known procedures. Encounters Start End Encounter Admission Attending Care Care Encounter Source Date/Time Date/Time Type Type Clinicians Facility Department ID 2019-08-04 2019-08-04 Outpatient AMADOR CASEY [facility] [id number] [place] 00:00:00 00:00:[address] 2019-07-07 2019-07-07 Outpatient AMADOR CASEY [facility] [id number] [place] 00:00:00 00:00:[address] 2019-05-16 2019-05-16 Office LAY Mak [id number] 09:44:57 10:36:48 Visit [facility] [id number] Surgical [id number] Specialti [id number] [address] Results This patient has no known results.
--- NOTE | 2020-06-19 14:28 | ER ---
Nurse's Notes [facility] Name: Elizabeth Britton Age: 34 yrs Sex: Female : 1985 Arrival Date: 06/19/2020 Time: 12:07 Bed 6 Private MD: Diagnosis: Pain in left lower leg;Pain in right lower leg Presentation: 06/19 12:12 Chief complaint: Patient states: L lateral leg pain from ankle up to above knee for 3-4 ll1 days. Last night noticed some pain to RLE also. Concerned for blood clots, on Eloquis for blood clots to the lung. Had tumor removed from neck last here. Coronavirus screen: Client denies travel out of the [place] in the last 14 days. At this time, the client does not indicate any symptoms associated with coronavirus-19. Ebola Screen: Patient denies travel to an Ebola-affected area in the 21 days before illness onset. Initial Sepsis Screen: Does the patient meet any 2 criteria? No. Patient's initial sepsis screen is negative. Does the patient have a suspected source of infection? Yes: Other: leg pain. Risk Assessment: Do you want to hurt yourself or someone else? Patient reports no desire to harm self or others. Onset of symptoms was June 15, 2020. 12:12 Method Of Arrival: Ambulatory ll1 12:12 Acuity: BE 4 ll1 Historical: - Allergies: 12:12 No Known Drug Allergies; ll1 - PMHx: 12:12 blood clot in lung; ll1 - PSHx: 12:12 ; Hysterectomy; breast augmentation; tumor removed from neck; ll1 - Immunization history:: Flu vaccine is not up to date. - Social history:: Smoking status: Patient denies any tobacco usage or history of. Screenin:01 Abuse screen: Denies threats or abuse. Denies injuries from another. Nutritional ph screening: No deficits noted. Tuberculosis screening: No symptoms or risk factors identified. Fall Risk None identified. Assessment: 13:00 General: Appears in no apparent distress. comfortable, well groomed, Behavior is calm, ph cooperative, appropriate for age, Denies fever. Pain: Complains of pain in lateral aspect of left knee, lateral aspect of left calf and left lateral ankle. Neuro: Level of Consciousness is awake, alert, obeys commands, Oriented to person, place, time, situation. Cardiovascular: Denies chest pain, shortness of breath, Capillary refill < 3 seconds in bilateral fingers Patient's skin is warm and dry. Respiratory: Airway is patent Respiratory effort is even, unlabored. Derm: Skin is intact, is healthy with good turgor, Skin is pink, warm \T\ dry. Musculoskeletal: Circulation, motion, and sensation intact. Range of motion: intact in all extremities. 14:00 Reassessment: Patient appears in no apparent distress at this time. Patient and/or ph family updated on plan of care and expected duration. Pain level reassessed. Patient is alert, oriented x 3, equal unlabored respirations, skin warm/dry/pink. US at bedside. Vital Signs: 12:12 BP 125 / 83; Pulse 70; Resp 17; Temp 98.9; Pulse Ox 95% on R/A; Weight 72.57 kg; Height ll1 5 ft. 2 in. (157.48 cm); Pain 4/10; 14:45 BP 120 / 82; Pulse 68; Resp 18; Temp 98.2; Pulse Ox 96% on R/A; ph 12:12 Body Mass Index 29.26 (72.57 kg, 157.48 cm) ll1 ED Course: 12:07 Patient arrived in ED. ds1 12:11 Arm band placed on. ll1 12:15 Triage completed. ll1 12:24 Guanaco Lyman PA is PHCP. [facility] 12:24 Liborio Dowling MD is Attending Physician. [facility] 12:39 Loretta Chung, RN is Primary Nurse. ph 14:01 Patient has correct armband on for positive identification. Bed in low position. Call ph light in reach. Side rails up X 1. Pulse ox on. NIBP on. Door closed. Noise minimized. Warm blanket given. 14:33 Yee Lowe MD is Referral Physician. m 14:33 Iftikhar Fraga MD is Referral Physician. [facility] 14:44 No provider procedures requiring assistance completed. Patient did not have IV access ph during this emergency room visit. 14:48 US Extremity Venous W Compression Cheikh In Process Unspecified. EDMS Administered Medications: No medications were administered Outcome: 14:27 Discharge ordered by . jmm 14:44 Discharged to home ambulatory. ph 14:44 Condition: good 14:44 Discharge instructions given to patient, Instructed on discharge instructions, follow up and referral plans. medication usage, Demonstrated understanding of instructions, follow-up care, medications, Prescriptions given X 1. 14:45 Patient left the ED. ph Signatures: Dispatcher [employer] EDMS Guanaco Lyman PA PA jmm Sanford, Demi ds1 Loretta Chung RN RN ph Lewis, Lynsay, RN RN ll1
--- NOTE | 2020-06-19 14:28 | EDPHYS ---
Physician Documentation [facility] Name: Elizabeth Britton Age: 34 yrs Sex: Female : 1985 Arrival Date: 06/19/2020 Time: 12:07 Bed 6 Private MD: ED Physician Liborio Dowling HPI: 06/19 12:56 This 34 yrs old Female presents to ER via Ambulatory with complaints of Leg jmm Pain. 12:56 The patient presents with pain. Onset: The symptoms/episode began/occurred gradually, 1 jmm day(s) ago. Modifying factors: The symptoms are alleviated by nothing. the symptoms are aggravated by nothing. This is a 34 year old female with a history of PE that presents to the ED with complaint of pain to both lower leg. Patient recently had a surgical procedure to remove a mass. Patient currently takes 20 mg of xarelto daily. . Historical: - Allergies: 12:12 No Known Drug Allergies; ll1 - PMHx: 12:12 blood clot in lung; ll1 - PSHx: 12:12 ; Hysterectomy; breast augmentation; tumor removed from neck; ll1 - Immunization history:: Flu vaccine is not up to date. - Social history:: Smoking status: Patient denies any tobacco usage or history of. ROS: 12:57 Constitutional: Negative for fever, chills, and weight loss, Cardiovascular: Negative jmm for chest pain, palpitations, and edema, Respiratory: Negative for shortness of breath, cough, wheezing, and pleuritic chest pain. 12:57 Abdomen/GI: Positive for 12:57 All other systems are negative. Exam: 12:57 Constitutional: This is a well developed, well nourished patient who is awake, alert, jmm and in no acute distress. Head/Face: atraumatic. Eyes: EOMI, no conjunctival erythema appreciated ENT: Moist Mucus Membranes Neck: Trachea midline, Supple Chest/axilla: Normal chest wall appearance and motion. Cardiovascular: Regular rate and rhythm. No edema appreciated Respiratory: Normal respirations, no respiratory distress appreciated Abdomen/GI: Non distended, soft Back: Normal ROM Skin: General appearance color normal MS/ Extremity: Moves all extremities, no obvious deformities appreciated, no edema noted to the lower extremities Neuro: Awake and alert, normal gait Psych: Behavior is normal, Mood is normal, Patient is cooperative and pleasant Vital Signs: 12:12 BP 125 / 83; Pulse 70; Resp 17; Temp 98.9; Pulse Ox 95% on R/A; Weight 72.57 kg; Height ll1 5 ft. 2 in. (157.48 cm); Pain 4/10; 14:45 BP 120 / 82; Pulse 68; Resp 18; Temp 98.2; Pulse Ox 96% on R/A; ph 12:12 Body Mass Index 29.26 (72.57 kg, 157.48 cm) ll1 MDM: 12:51 Patient medically screened. [facility] 14:26 Data reviewed: vital signs, nurses notes. Counseling: I had a detailed discussion with zeferino the patient and/or guardian regarding: the historical points, exam findings, and any diagnostic results supporting the discharge/admit diagnosis, radiology results, the need for outpatient follow up, to return to the emergency department if symptoms worsen or persist or if there are any questions or concerns that arise at home. ED course: US is negative. Patient is advised to follow up with pcp and otherwise given strict return precautions. patient understood and agrees with the plan of care. . 06/19 12:52 Order name: US Extremity Venous W Compression Cheikh [facility] Administered Medications: No medications were administered Disposition: 15:50 Co-signature as Attending Physician, Liborio Dowling MD I agree with the assessment and tw4 plan of care. Disposition: 06/19/20 14:27 Discharged to Home. Impression: Pain in left lower leg, Pain in right lower leg. - Condition is Stable. - Discharge Instructions: Musculoskeletal Pain. - Prescriptions for orphenadrine citrate 100 mg Oral Tablet Sustained Release - take 1 tablet by ORAL route 2 times per day As needed; 20 tablet. - Medication Reconciliation Form, Thank You Letter, Antibiotic Education, Prescription Opioid Use form. - Follow up: Private Physician; When: 2 - 3 days; Reason: Recheck today's complaints, Continuance of care, Re-evaluation by your physician. Follow up: Yee Lowe MD; When: 2 - 3 days; Reason: Recheck today's complaints, Continuance of care, Re-evaluation by your physician. Follow up: Iftikhar Fraga MD; When: 2 - 3 days; Reason: Recheck today's complaints, Continuance of care, Re-evaluation by your physician. - Notes: Please follow up with a primary care provider for further evaluation. Your musculoskeletal pain may be due to an underlying inflammatory process. You may want to request an RA/JOSEFINA panel. Signatures: Dispatcher [employer] EDMS Guanaco yLman PA PA jmm Hall, Patricia, RN RN ph Liborio Dowling MD MD tw4 Trena Abdul RN RN ll1 Corrections: (The following items were deleted from the chart) 14:33 14:27 06/19/2020 14:27 Discharged to Home. Impression: Pain in left lower leg; Pain in jmm right lower leg. Condition is Stable. Forms are Medication Reconciliation Form, Thank You Letter, Antibiotic Education, Prescription Opioid Use. Follow up: Private Physician; When: 2 - 3 days; Reason: Recheck today's complaints, Continuance of care, Re-evaluation by your physician. [facility] 14:45 14:33 06/19/2020 14:27 Discharged to Home. Impression: Pain in left lower leg; Pain in ph right lower leg. Condition is Stable. Discharge Instructions: Musculoskeletal Pain. Prescriptions for orphenadrine citrate 100 mg Oral Tablet Sustained Release - take 1 tablet by ORAL route 2 times per day As needed; 20 tablet. and Forms are Medication Reconciliation Form, Thank You Letter, Antibiotic Education, Prescription Opioid Use. Follow up: Private Physician; When: 2 - 3 days; Reason: Recheck today's complaints, Continuance of care, Re-evaluation by your physician. Follow up: Yee Lowe; When: 2 - 3 days; Reason: Recheck today's complaints, Continuance of care, Re-evaluation by your physician. Follow up: Iftikhar Fraga; When: 2 - 3 days; Reason: Recheck today's complaints, Continuance of care, Re-evaluation by your physician. [facility]
[2020-06-19 15:03] VITALS: BP 120/82; TEMP 98.2; O2SAT 96
--- NOTE | 2020-06-19 15:08 | RAD REPORT ---
EXAM DESCRIPTION: US - Extrem Venous W Compress Cheikh - 06/19/2020 2:48 pm CLINICAL HISTORY: PAIN Bilateral leg edema and swelling. COMPARISON: Extrem Venous W Compress Cheikh dated 12/13/2019 TECHNIQUE: Real-time sonographic interrogation of the left and right lower extremity deep venous sys tems was performed. FINDINGS: Normal compressibility, flow augmentation, phasic flow and spontaneous flow is identified in both the left and right lower extremity deep venous systems. IMPRESSION: No sonographic evidence of left or right lower extremity deep venous thrombosis.
== END 2020-06-19 14:45 | disposition home or self-care (01) ==
LOC: ER 12:06
DX: M79.662 Pain in left lower leg (principal); M79.661 Pain in right lower leg; Z98.82 Breast implant status
CPT/HCPCS: 93970; 99283

== ENCOUNTER 2020-06-20 15:39 | Emergency (ER) | payer BC ==
--- OUTSIDE RECORDS SUMMARY | 2020-06-20 15:41 | XMS REPORT | Continuity of Care Document ---
:1985 Author Organization [facility] t Address [address] [place] [place] [address] Care Team Providers Name Role Phone SIFF [...] [facility] Allergie 10-02 Clear s 00:00: Mendoza [address] [place] [address] Medications This patient has no known medications. Procedures This patient has no known procedures. Encounters Start End Encounter Admission Attending Care Care Encounter Source Date/Time Date/Time Type Type Clinicians Facility Department ID 2019-08-04 2019-08-04 Outpatient [facility] [id number] [place] 00:00:00 00:00:[address] 2019-07-07 2019-07-07 Outpatient [facility] [id number] [place] 00:00:00 00:00:[address] 2019-05-16 2019-05-16 Office LAY Mak [id number] 09:44:57 10:36:48 Visit [facility] [id number] Surgical [id number] Specialti [id number] [address] Results This patient has no known results.
--- NOTE | 2020-06-20 17:45 | RAD REPORT ---
EXAM DESCRIPTION: RAD - Foot Left 3 View - 06/20/2020 5:24 pm CLINICAL HISTORY: foot pain COMPARISON: No comparisons FINDINGS: No fracture, dislocation or periosteal reaction. No acute or destructive bony process. No air or foreign body in the soft tissues. IMPRESSION: Negative left foot examination.
[2020-06-20] MEDS ORDERED: HYDROCODONE/APAP 10/325 TAB ONE (18:16)
[2020-06-20] MEDS ORDERED: dexAMETHasone 10 MG/ML VIAL ONE (18:16)
--- NOTE | 2020-06-20 18:22 | ER ---
Nurse's Notes [facility] Name: Elizabeth Britton Age: 34 yrs Sex: Female : 1985 Arrival Date: 06/20/2020 Time: 15:42 Bed 15 Private MD: Diagnosis: Pain in left foot Presentation: 06/20 15:48 Chief complaint: Patient states: L lateral leg pain for 5 days. Seen here yesterday for ll1 the same. States they just did ultrasound on both legs. They didn't check her L lateral ankle pain where the pain is. Coronavirus screen: Client denies travel out of the [place] in the last 14 days. At this time, the client does not indicate any symptoms associated with coronavirus-19. Ebola Screen: Patient denies travel to an Ebola-affected area in the 21 days before illness onset. Initial Sepsis Screen: Does the patient meet any 2 criteria? No. Patient's initial sepsis screen is negative. Does the patient have a suspected source of infection? Yes: Other: leg pain, r/o DVT. Risk Assessment: Do you want to hurt yourself or someone else? Patient reports no desire to harm self or others. Onset of symptoms was June 15, 2020. 15:48 Method Of Arrival: Ambulatory ll1 15:48 Acuity: BE 3 ll1 Triage Assessment: 15:40 General: Appears in no apparent distress. uncomfortable, well groomed, Behavior is ae4 calm, cooperative. Pain: Complains of pain in left foot Pain does not radiate. EENT: No signs and/or symptoms were reported regarding the EENT system. Neuro: Level of Consciousness is awake, alert, obeys commands, Oriented to person, place, time, situation, Appropriate for age. Cardiovascular: Patient's skin is warm and dry. Respiratory: Airway is patent Trachea midline Respiratory effort is even, unlabored, Respiratory pattern is regular, symmetrical. GI: No signs and/or symptoms were reported involving the gastrointestinal system. : No signs and/or symptoms were reported regarding the genitourinary system. Urine is clear. Derm: Skin is pink, warm \T\ dry. Musculoskeletal: Reports pain in left foot Lateral side of left foot extending to a small portion of the dorsal side of left foot is red and mildly swollen. LEGAL ACTIVITY ADJUDICATOR: 19:43 LMP 05/19/2020 ae4 Historical: - Allergies: 15:52 No Known Drug Allergies; ll1 - PMHx: 15:52 blood clot in lung; ll1 - PSHx: 15:52 ; Hysterectomy; breast augmentation; tumor removed from neck; ll1 - Immunization history:: Flu vaccine is not up to date. - Social history:: Smoking status: Patient denies any tobacco usage or history of. Screenin:43 Abuse screen: Denies threats or abuse. Nutritional screening: No deficits noted. ae4 Tuberculosis screening: No symptoms or risk factors identified. Fall Risk No fall in past 12 months (0 pts). No secondary diagnosis (0 pts). No IV (0 pts). Ambulatory Aid- None/Bed Rest/Nurse Assist (0 pts). Gait- Normal/Bed Rest/Wheelchair (0 pts) Mental Status- Oriented to own ability (0 pts). Assessment: 19:25 Reassessment: Patient appears in no apparent distress at this time. Patient and/or wh family updated on plan of care and expected duration. Pain level reassessed. Patient is alert, oriented x 3, equal unlabored respirations, skin warm/dry/pink. 19:39 Reassessment: environmental compliance technician at bedside. ae4 20:15 Reassessment: Patient appears in no apparent distress at this time. Patient and/or wh family updated on plan of care and expected duration. Pain level reassessed. Patient is alert, oriented x 3, equal unlabored respirations, skin warm/dry/pink. Provider at bedside explaining POC. Vital Signs: 15:40 BP 130 / 78; Pulse 69; Resp 16; Pulse Ox 99% on R/A; ae4 15:48 BP 134 / 85; Pulse 62; Resp 17; Temp 98.3; Pulse Ox 99% ; Weight 72.57 kg; Height 5 ft. ll1 2 in. (157.48 cm); Pain 6/10; 19:30 BP 128 / 80; Pulse 68; Resp 18; Pulse Ox 99% on R/A; wh 15:48 Body Mass Index 29.26 (72.57 kg, 157.48 cm) ll1 ED Course: 15:42 Patient arrived in ED. ds1 15:50 Bed in low position. Call light in reach. Side rails up X 1. Pulse ox on. NIBP on. ae4 15:52 Triage completed. ll1 15:52 Arm band placed on. ll1 16:39 Guanaco Lyman PA is PHCP. [facility] 16:39 Igor Lewis MD is Attending Physician. [facility] 17:25 Foot Left 3 View XRAY In Process Unspecified. EDMS 17:56 Brendon Robledo, RN is Primary Nurse. ae4 18:21 Kwasi Arguelles DPM is Referral Physician. [facility] 18:55 Urine collected: clean catch specimen, clear. 5 19:39 Ultrasound completed. Other: pt states she thinks she has blood clots in lateral ankle, sg3 insists on u/s of ankle area, pics were taken and sent to rad. . 20:24 No provider procedures requiring assistance completed. Patient did not have IV access wh during this emergency room visit. Administered Medications: 18:15 Drug: Bandera 10 mg-325 mg 1 tabs Route: PO; ae4 20:15 Follow up: Response: No adverse reaction; Pain is decreased; RASS: Alert and Calm (0) 18:31 Not Given (Patient Refused): Decadron 10 mg IM once ae4 Outcome: 18:21 Discharge ordered by . [facility] 20:24 Discharged to home ambulatory. 20:24 Condition: stable 20:24 Discharge instructions given to patient, Instructed on discharge instructions, follow up and referral plans. no drinking with medication, no driving heavy equipment, medication usage, POC Demonstrated understanding of instructions, follow-up care, medications, POC Prescriptions given X 1. 20:24 Patient left the ED. Signatures: Dispatcher [employer] EDLA Guanaco Lyman PA PA jmm Sanford, Demi 1 Ghislaine Cassidy 5 Justin Espino, GURMEET RN Sania Perry sg3 Brendon Robledo, RN RN ae4 Trena Abdul, RN RN ll1
--- NOTE | 2020-06-20 18:22 | EDPHYS ---
Physician Documentation [facility] Name: Elizabeth Britton Age: 34 yrs Sex: Female : 1985 Arrival Date: 06/20/2020 Time: 15:42 Bed 15 Private MD: ED Physician Igor Lewis HPI: 06/20 16:59 This 34 yrs old Female presents to ER via Ambulatory with complaints of Leg jmm Pain - Poss Blood CLot. 16:59 The patient presents with pain. Onset: The symptoms/episode began/occurred gradually, 5 jmm day(s) ago. Modifying factors: The symptoms are alleviated by nothing. the symptoms are aggravated by movement, weight bearing. Associated signs and symptoms: Pertinent negatives fever. This is a 34 year old female with a history of PE that presents to the ED with complaints of left lateral foot pain. Patient was evaluated yesterday with negative. US of the left leg. States the pain has intensified since discharge yesterday. . VIDEO EDITOR: 19:43 LMP 05/19/2020 ae4 Historical: - Allergies: 15:52 No Known Drug Allergies; ll1 - PMHx: 15:52 blood clot in lung; ll1 - PSHx: 15:52 ; Hysterectomy; breast augmentation; tumor removed from neck; ll1 - Immunization history:: Flu vaccine is not up to date. - Social history:: Smoking status: Patient denies any tobacco usage or history of. ROS: 16:59 Constitutional: Negative for fever, chills, and weight loss, Cardiovascular: Negative jmm for chest pain, palpitations, and edema, Respiratory: Negative for shortness of breath, cough, wheezing, and pleuritic chest pain. 16:59 MS/extremity: Positive for pain. 16:59 All other systems are negative. Exam: 16:59 Constitutional: This is a well developed, well nourished patient who is awake, alert, jmm and in no acute distress. Head/Face: atraumatic. Eyes: EOMI, no conjunctival erythema appreciated ENT: Moist Mucus Membranes Neck: Trachea midline, Supple Chest/axilla: Normal chest wall appearance and motion. Cardiovascular: Regular rate and rhythm. No edema appreciated Respiratory: Normal respirations, no respiratory distress appreciated Abdomen/GI: Non distended, soft Back: Normal ROM Skin: General appearance color normal 16:59 Musculoskeletal/extremity: left lateral foot pain on palpation, no swelling, or induration appreciated,compartments are soft, NVI. 16:59 Skin: Appearance: Color: normal in color. 16:59 Neuro: Orientation: is normal, Mentation: is normal, Memory: is normal. 16:59 Psych: Behavior/mood is cooperative, anxious. Vital Signs: 15:40 BP 130 / 78; Pulse 69; Resp 16; Pulse Ox 99% on R/A; ae4 15:48 BP 134 / 85; Pulse 62; Resp 17; Temp 98.3; Pulse Ox 99% ; Weight 72.57 kg; Height 5 ft. ll1 2 in. (157.48 cm); Pain 6/10; 19:30 BP 128 / 80; Pulse 68; Resp 18; Pulse Ox 99% on R/A; wh 15:48 Body Mass Index 29.26 (72.57 kg, 157.48 cm) ll1 MDM: 16:45 Patient medically screened. [facility] 18:20 Data reviewed: vital signs, nurses notes. Counseling: I had a detailed discussion with zeferino the patient and/or guardian regarding: the historical points, exam findings, and any diagnostic results supporting the discharge/admit diagnosis, radiology results, the need for outpatient follow up, to return to the emergency department if symptoms worsen or persist or if there are any questions or concerns that arise at home. ED course: Patient refuses reevaluation of the left leg with US. I discussed the patient with Dr. Arguelles for reevaluation tomorrow. Patient understood and agrees with the plan of care. . 20:22 ED course: Patient upset due to lack of positive results and is concerned of the [facility] possibility of missing a . ED course: Patient was very upset upon her second visit. States her left foot hurt more than the previous day. Pain is better localized today mainly to the left foot. I did not initially suspect DVT due to the location of pain and recently negative US study from yesterday. I initially offered to xray the foot due to pain. Patient denied fever, had normal vital signs, no induration or erythema appreciated. I did not suspect cellulitis. Patient was concerned of the possibility of a blood clot in her foot, I explained multiple times how this could not be evaluated for in the ER with US. Patient was very upset due to this. Patient initially declined US but upon initial discharge decided she wanted us to order a repeat study. After this was completed. Patient now requested blood work for evaluation. I explained the process of ABG and my rationale why that was not an appropriate lab due to normal VS and also being on xarelto and having no resp complaints. Patient was also upset we tested her for because she had previously had a hysterectomy. I discussed the case with Dr. Arguelles whom would see the patient in clinic in [place] tomorrow. This did not appear to satisfy the patient. Patient left the ED upset. . 06/20 18:56 Order name: Urine Dipstick--Ancillary (enter results) 06/20 18:56 Order name: Urine --Ancillary (enter results) 06/20 16:57 Order name: Foot Left 3 View XRAY; Complete Time: 17:48 [facility] 06/20 17:57 Order name: US Extremity Venous Unilateral Ltd [facility] 06/20 19:31 Order name: Urine --Ancillary; Complete Time: 19:36 [facility] 06/20 19:32 Order name: Urine Dipstick-Ancillary; Complete Time: 19:36 [facility] 06/20 16:57 Order name: Urine Dipstick-Ancillary (obtain specimen); Complete Time: 18:55 [facility] 06/20 16:57 Order name: Urine Test (obtain specimen); Complete Time: 18:55 [facility] 06/20 19:41 Order name: US; Complete Time: 20:14 EDMS Administered Medications: 18:15 Drug: Mcdonough 10 mg-325 mg 1 tabs Route: PO; ae4 20:15 Follow up: Response: No adverse reaction; Pain is decreased; RASS: Alert and Calm (0) 18:31 Not Given (Patient Refused): Decadron 10 mg IM once ae4 Disposition: 06/21 07:00 Co-signature as Attending Physician, Igor Lewis MD I agree with the assessment and curtis plan of care. Disposition: 06/20/20 18:21 Discharged to Home. Impression: Pain in left foot. - Condition is Stable. - Discharge Instructions: Foot Pain. - Prescriptions for Tramadol 50 mg Oral Tablet - take 1 tablet by ORAL route every 4 hours as needed; 24 tablet. - Medication Reconciliation Form, Thank You Letter, Antibiotic Education, Prescription Opioid Use form. - Follow up: Kwasi Arguelles DPM; When: Tomorrow; Reason: Recheck today's complaints, Continuance of care, Re-evaluation by your physician. Signatures: Dispatcher [employer] EDMS Igor Lewis MD MD cha Mickail, Joel, PA PA Justin Castano, RN RN Brendon Robledo RN RN ae4 Trena Abdul RN RN ll1 Corrections: (The following items were deleted from the chart) 06/20 20:24 18:21 06/20/2020 18:21 Discharged to Home. Impression: Pain in left foot. Condition is wh Stable. Forms are Medication Reconciliation Form, Thank You Letter, Antibiotic Education, Prescription Opioid Use. Follow up: Dr. Kwasi Arguelles; When: Tomorrow; Reason: Recheck today's complaints, Continuance of care, Re-evaluation by your physician. [facility] 20:35 20:22 ED course: Patient was very upset upon her second visit. States her left foot jmm hurt more than the previous day. Pain is better localized today mainly to the left foot. I didn't not initially suspect DVT due to the location of pain and recently negative US study from yesterday. zeferino
[2020-06-20 19:31] LABS: Urine Blood NEGATIVE (NEG); Urine Glucose NEGATIVE (NEG); Urine Protein NEGATIVE (NEG); Urine Specific Gravity >1.030 (1.005-1.030); Urine pH 7.5 (5.0-7.0)
--- NOTE | 2020-06-20 19:40 | RAD REPORT ---
EXAM DESCRIPTION: US - Extremity Venous Uni Ltd - 06/20/2020 7:35 pm CLINICAL HISTORY: PAIN, left ankle pain and swelling COMPARISON: None. TECHNIQUE: Real-time sonographic evaluation of the left lower extremity deep venous system was perfo rmed. FINDINGS: Normal compressibility, flow augmentation, phasic flow and spontaneous flow are identified in the left lower extremity common femoral, superficial femoral, popliteal and posterior tibial vein s. No intraluminal filling defects seen. IMPRESSION: No DVT in the left lower extremity.
[2020-06-21 16:24] VITALS: O2SAT 99
[2020-06-21 16:25] VITALS: TEMP 98.3
[2020-06-21 16:27] VITALS: BP 128/80
== END 2020-06-20 20:24 | disposition home or self-care (01) ==
LOC: ER 15:39
DX: M79.672 Pain in left foot (principal); Z86.711 Personal history of pulmonary embolism; Z98.82 Breast implant status
CPT/HCPCS: 81025; 81003; 73630; 93971; J1100; 99284

== ENCOUNTER 2021-01-03 10:12 | Emergency (ER) | payer BC ==
[2021-01-03 11:51] LABS: Basophils % 1.1 % (0-1.3); Hematocrit 44.1 % (36.0-45.0); Lymphocytes % 28.9 % (15.3-44.8); MPV 8.6 fL (7.6-11.3); RBC Red Blood Cell Count 5.15 M/uL (3.86-4.86)
[2021-01-03 11:52] LABS: Protime INR 1.83
[2021-01-03 12:09] LABS: ALT/SGPT 28 U/L (12-78); AST/SGOT 20 U/L (15-37); Albumin 3.5 g/dL (3.4-5.0); Alkaline Phosphatase 90 U/L (45-117); BUN Blood Urea Nitrogen 13 mg/dL (7-18); Bicarbonate 30 mmol/L (21-32); Bilirubin Direct < 0.1 mg/dL (0-0.2); Bilirubin Total 0.3 mg/dL (0.2-1.0); Glucose Level 84 mg/dL (74-106); Magnesium 2.1 mg/dL (1.8-2.4); NT PRO-BNP 170 pg/mL (<125); Potassium 4.3 mmol/L (3.5-5.1); Protein, Total 7.4 g/dL (6.4-8.2); Sodium Level 142 mmol/L (136-145); Troponin (Emerg Dept Use Only) < 0.02 ng/mL (0.0-0.045)
[2021-01-03] MEDS ORDERED: MORPHINE 2 MG/ML SYR ONE ×2 (12:12→14:06)
[2021-01-03] MEDS ORDERED: ONDANSETRON 4 MG/2 ML VIAL ONE (12:12)
[2021-01-03] MEDS ORDERED: NA CHLORIDE 0.9% 1,000 ML ONE (12:12)
[2021-01-03] MEDS ORDERED: NA CHLORIDE 0.9% 500 ML ONE (12:13)
--- NOTE | 2021-01-03 12:31 | RAD REPORT ---
EXAM DESCRIPTION: CT - Soft Tissue Neck W/Contr - 01/03/2021 12:01 pm CLINICAL HISTORY: FACIAL PAIN COMPARISON: No comparisons TECHNIQUE: During dynamic enhancement using 100 milliliters nonionic IV contrast, axial 5 millimeter thick images of the neck were obtained. All CT scans are performed using dose optimization technique as appropriate and may include automated exposure control or mA/KV adjustment according to patient size. FINDINGS: Intracranial portion the examination is unremarkable. No globe or orbital content abnormal ity seen. Mastoid air cells and paranasal sinuses are clear. Right deviation of the mid nasal septum is present. No vascular abnormality seen. No acute bony finding is identifiable. The parotid, submandibular and thyroid gland tissue show no suspicious findings or asymmetry. No pharyngeal mucosal mass or asymmetry identifiable. Parapharyngeal fat is normal. No tongue base ab normality. Epiglottis is normal. No pharyngeal mass or asymmetry seen. Calcification is present at th e inferior left tonsil not seen as an acute finding. Patient has a few small nonspecific cervical lymph nodes. No bulky lymphadenopathy. No congestion or edema in the fatty tissues. IMPRESSION: Contrast-enhanced soft tissue neck examination shows no abscess, mass, inflammatory stra nding or other emergent finding.
--- NOTE | 2021-01-03 12:44 | EDPHYS ---
Physician Documentation [facility] Name: Elizabeth Britton Age: 35 yrs Sex: Female : 1985 Arrival Date: 01/03/2021 Time: 10:15 Bed 13 Private MD: Igor Rg HPI: 01/03 11:31 This 35 yrs old Female presents to ER via Ambulatory with complaints of Right curtis neck/behind ear pain/tenderness/pressure. 11:31 The patient presents with pain. The complaints affect the right ear, right jaw, right curtis temporal area, right occipital area and right base of the skull. Onset: The symptoms/episode began/occurred this morning, today. Modifying factors: The symptoms are alleviated by nothing, the symptoms are aggravated by nothing. The patient or guardian complains of an abrasion. The symptoms are located on the right ear, right side of the back of head, right temporal area, right occipital area, right anabaptist and right base of the skull. Onset: The symptoms/episode began/occurred 1 day(s) ago. Context: The problem was sustained at home, The neck injury/problem resulted from from unknown cause. Associated signs and symptoms: The patient has no apparent associated signs or symptoms. Modifying factors: The symptoms are alleviated by nothing. the symptoms are aggravated by movement, pressure. 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 - Social history:: Smoking status: Patient denies any tobacco usage or history of. - Family history:: not pertinent. ROS: 11:31 Constitutional: Negative for fever, chills, and weight loss, Eyes: Negative for injury, curtis pain, redness, and discharge, Neck: Negative for injury, pain, and swelling, Cardiovascular: Negative for chest pain, palpitations, and edema, Respiratory: Negative for shortness of breath, cough, wheezing, and pleuritic chest pain, Abdomen/GI: Negative for abdominal pain, nausea, vomiting, diarrhea, and constipation, Back: Negative for injury and pain, : Negative for injury, bleeding, discharge, and swelling, MS/Extremity: Negative for injury and deformity, Skin: Negative for injury, rash, and discoloration, Neuro: Negative for headache, weakness, numbness, tingling, and seizure, Psych: Negative for depression, anxiety, suicide ideation, homicidal ideation, and hallucinations, Allergy/Immunology: Negative for hives, rash, and allergies, Endocrine: Negative for neck swelling, polydipsia, polyuria, polyphagia, and marked weight changes, Hematologic/Lymphatic: Negative for swollen nodes, abnormal bleeding, and unusual bruising. 11:31 ENT: Positive for ear pain. Exam: 11:31 Constitutional: This is a well developed, well nourished patient who is awake, alert, curtis and in no acute distress. Eyes: Pupils equal round and reactive to light, extra-ocular motions intact. Lids and lashes normal. Conjunctiva and sclera are non-icteric and not injected. Cornea within normal limits. Periorbital areas with no swelling, redness, or edema. ENT: Nares patent. No nasal discharge, no septal abnormalities noted. Tympanic membranes are normal and external auditory canals are clear. Oropharynx with no redness, swelling, or masses, exudates, or evidence of obstruction, uvula midline. Mucous membranes moist. Neck: Trachea midline, no thyromegaly or masses palpated, and no cervical lymphadenopathy. Supple, full range of motion without nuchal rigidity, or vertebral point tenderness. No Meningismus. Chest/axilla: Normal chest wall appearance and motion. Nontender with no deformity. No lesions are appreciated. Cardiovascular: Regular rate and rhythm with a normal S1 and S2. No gallops, murmurs, or rubs. Normal PMI, no JVD. No pulse deficits. Respiratory: Lungs have equal breath sounds bilaterally, clear to auscultation and percussion. No rales, rhonchi or wheezes noted. No increased work of breathing, no retractions or nasal flaring. Abdomen/GI: Soft, non-tender, with normal bowel sounds. No distension or tympany. No guarding or rebound. No evidence of tenderness throughout. Back: No spinal tenderness. No costovertebral tenderness. Full range of motion. Skin: Warm, dry with normal turgor. Normal color with no rashes, no lesions, and no evidence of cellulitis. MS/ Extremity: Pulses equal, no cyanosis. Neurovascular intact. Full, normal range of motion. Neuro: Awake and alert, GCS 15, oriented to person, place, time, and situation. Cranial nerves II-XII grossly intact. Motor strength 5/5 in all extremities. Sensory grossly intact. Cerebellar exam normal. Normal gait. 11:31 Head/face: Noted is swelling, that is moderate, tenderness, that is moderate, of the right temporal area, right occipital area, right ear and right base of the skull. 12:30 ECG was reviewed by the Attending Physician. [facility] Vital Signs: 10:46 BP 110 / 78; Pulse 68; Resp 16; Temp 99.14; Pulse Ox 99% on R/A; Weight 70.31 kg; iw Height 5 ft. 2 in. (157.48 cm); Pain 7/10; 14:00 BP 117 / 66; Pulse 71; Resp 17; Pulse Ox 100% on R/A; oh 10:46 Body Mass Index 28.35 (70.31 kg, 157.48 cm) iw MDM: 10:36 Patient medically screened. curtis 11:33 Differential diagnosis: otitis media, otitis externa, Neck Contusion Osteoarthritis. [facility] Data reviewed: vital signs, nurses notes, lab test result(s), EKG, radiologic studies, CT scan. 01/03 11:29 Order name: Basic Metabolic Panel; Complete Time: 12:41 [facility] 01/03 11:29 Order name: CBC with Diff; Complete Time: 12:41 [facility] 01/03 11:29 Order name: LFT's; Complete Time: 12:41 [facility] 01/03 11:29 Order name: Magnesium; Complete Time: 12:41 [facility] 01/03 11:29 Order name: NT PRO-BNP; Complete Time: 12:41 [facility] 01/03 11:29 Order name: PT-INR; Complete Time: 12:41 [facility] 01/03 11:29 Order name: Troponin (emerg Dept Use Only); Complete Time: 12:41 [facility] 01/03 11:29 Order name: XRAY Chest (1 view) [facility] 01/03 11:29 Order name: CT Soft Tissue Neck W/contr; Complete Time: 12:41 [facility] 01/03 11:29 Order name: EKG; Complete Time: 11:30 [facility] 01/03 11:29 Order name: Cardiac monitoring; Complete Time: 12: [facility] 01/03 11:29 Order name: EKG - Nurse/Tech; Complete Time: 12: [facility] 01/03 11:29 Order name: IV Saline Lock; Complete Time: 12: [facility] 01/03 11:29 Order name: Labs collected and sent; Complete Time: 12: [facility] 01/03 11:29 Order name: O2 Per Protocol; Complete Time: 12: [facility] 01/03 11:29 Order name: O2 Sat Monitoring; Complete Time: 12: [facility] EC: Rate is 48 beats/min. Rhythm is regular. QRS Economy is Normal. MA interval is normal. QRS curtis interval is normal. QT interval is normal. No Q waves. T waves are Normal. No ST changes noted. Clinical impression: Sinus bradycardia. Interpreted by me. Reviewed by me. Administered Medications: 11:40 Drug: NS 0.9% 1000 ml Route: IV; Rate: 125 ml/hr; Site: left antecubital; oh 11:55 Drug: NS 0.9% 500 ml Route: IV; Rate: bolus; Site: left antecubital; oh 11:55 Drug: morphine 2 mg Route: IVP; Site: left antecubital; oh 12:23 Follow up: Response: No adverse reaction oh 11:55 Drug: Zofran (Ondansetron) 4 mg Route: IVP; Site: left antecubital; oh 12:23 Follow up: Response: No adverse reaction oh 13:10 Drug: Rocephin (cefTRIAXone) 1 grams Route: IV; Rate: per protocol; Site: left oh antecubital; Disposition Summary: 01/03/21 12:44 Discharge Ordered Location: Home curtis Problem: new curtis Symptoms: have improved curtis Condition: Stable curtis Diagnosis - Strain of muscle, fascia and tendon at neck level, initial encounter curtis Followup: curtis - With: Private Physician - When: 2 - 3 days - Reason: Recheck today's complaints, Continuance of care, Re-evaluation by your physician Followup: curtis - With: Quiana Houston MD - When: 2 - 3 days - Reason: Recheck today's complaints, Continuance of care, Re-evaluation by your physician Discharge Instructions: - Discharge Summary Sheet curtis - Muscle Strain curtis - Muscle Strain, [id number] curtis Forms: - Medication Reconciliation Form curtis - Thank You Letter curtis - Antibiotic Education curtis - Prescription Opioid Use curtis Prescriptions: - Cephalexin 500 mg Oral Capsule - take 1 capsule by ORAL route every 6 hours for 7 days; 28 capsule; Refills: 0, curtis Product Selection Permitted - Tylenol-Codeine #3 300 mg-30 mg Oral - take 2 tablet by ORAL route every 4-6 hours; 15 tablet; Refills: 0, Product curtis Selection Permitted Signatures: Dispatcher [employer] Igor Tovar MD MD cha Williams, Irene, RN RN Marshal More RN RN oh
--- NOTE | 2021-01-03 12:44 | ER ---
Nurse's Notes [facility] Name: Elizabeth Britton Age: 35 yrs Sex: Female : 1985 Arrival Date: 01/03/2021 Time: 10:15 Bed 13 Private MD: Diagnosis: Strain of muscle, fascia and tendon at neck level, initial encounter Presentation: 01/03 10:39 Chief complaint: Patient states: pain behind right ear, down right side of neck , iw started Sunday, thought she slept wrong, pain is worse when bending down, can't turn head to left , pain worse with chewing , denies injury. Coronavirus screen: At this time, the client does not indicate any symptoms associated with coronavirus-19. Ebola Screen: Patient negative for fever greater than or equal to 101.5 degrees Fahrenheit, and additional compatible Ebola Virus Disease symptoms Patient denies exposure to infectious person. Patient denies travel to an Ebola-affected area in the 21 days before illness onset. No symptoms or risks identified at this time. Initial Sepsis Screen: Does the patient meet any 2 criteria? No. Patient's initial sepsis screen is negative. Does the patient have a suspected source of infection? No. Patient's initial sepsis screen is negative. Risk Assessment: Do you want to hurt yourself or someone else? Patient reports no desire to harm self or others. Onset of symptoms was December 31, 2020. 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 - Social history:: Smoking status: Patient denies any tobacco usage or history of. - Family history:: not pertinent. Screenin:52 Abuse screen: Denies threats or abuse. Nutritional screening: No deficits noted. oh Tuberculosis screening: No symptoms or risk factors identified. Fall Risk None identified. Assessment: 10:42 General: Appears uncomfortable, Behavior is calm, cooperative, Reports right sided oh pressure head pain radiating to right ear, worse upon chewing since Sunday. Pain: Complains of pain in right sided presure head pain radiating to right ear. Neuro: Reports headache. Cardiovascular: No deficits noted. Respiratory: No deficits noted. GI: No deficits noted. : No deficits noted. EENT: Reports pain right sided presure head pain radiating to right ear, worse upon chewing since sunday. Derm: No deficits noted. Musculoskeletal: No deficits noted. Vital Signs: 10:46 BP 110 / 78; Pulse 68; Resp 16; Temp 99.14; Pulse Ox 99% on R/A; Weight 70.31 kg; iw Height 5 ft. 2 in. (157.48 cm); Pain 7/10; 14:00 BP 117 / 66; Pulse 71; Resp 17; Pulse Ox 100% on R/A; oh 10:46 Body Mass Index 28.35 (70.31 kg, 157.48 cm) iw ED Course: 10:15 Patient arrived in ED. am2 10:33 Marshal Saunders, GURMEET is Primary Nurse. oh 10:36 Igor Lewis MD is Attending Physician. curtis 10:41 Triage completed. iw 10:53 Bed in low position. Call light in reach. oh 10:53 Arm band placed on left wrist. oh 12:01 CT Soft Tissue Neck W/contr In Process Unspecified. EDMS 12:05 XRAY Chest (1 view) In Process Unspecified. EDMS 12:23 Inserted saline lock: 20 gauge in left antecubital area, using aseptic technique. Blood oh collected. 12:42 Quiana Houston MD is Referral Physician. curtis 14:18 No provider procedures requiring assistance completed. oh 14:18 IV discontinued, bleeding controlled, Pressure dressing applied. oh Administered Medications: 11:40 Drug: NS 0.9% 1000 ml Route: IV; Rate: 125 ml/hr; Site: left antecubital; oh 11:55 Drug: NS 0.9% 500 ml Route: IV; Rate: bolus; Site: left antecubital; oh 11:55 Drug: morphine 2 mg Route: IVP; Site: left antecubital; oh 12:23 Follow up: Response: No adverse reaction oh 11:55 Drug: Zofran (Ondansetron) 4 mg Route: IVP; Site: left antecubital; oh 12:23 Follow up: Response: No adverse reaction oh 13:10 Drug: Rocephin (cefTRIAXone) 1 grams Route: IV; Rate: per protocol; Site: left oh antecubital; Outcome: 12:44 Discharge ordered by . curtis 13:57 Patient left the ED. iw 14:18 Discharged to home ambulatory. oh 14:18 Condition: good 14:18 Discharge instructions given to patient. Signatures: Dispatcher [employer] EDIgor Garrett MD MD cha Williams, Irene, RN RN Purnima Carmona Marshal Jackson RN RN oh
--- NOTE | 2021-01-03 12:57 | RAD REPORT ---
EXAM DESCRIPTION: RAD - Chest Single View - 01/03/2021 12:05 pm CLINICAL HISTORY: COUGH COMPARISON: December 2019 TECHNIQUE: AP portable chest image was obtained 01/03/2021 12:05 pm . FINDINGS: No acute lung parenchymal process. Heart and vasculature are normal. No measurable pleural effusion and no pneumothorax. No acute bony abnormality seen. No acute aortic findings suspected. IMPRESSION: No acute cardiopulmonary process. No significant change from comparison study.
[2021-01-03] MEDS ORDERED: CEFTRIAXONE 1000 MG/VIAL ONE (13:58)
--- NOTE | 2021-01-04 16:43 | EKG ---
Test Date: 2021-01-03 Test Time: 12:25:10 Crm Developer: YUKI MEASUREMENT RESULTS: Intervals: Rate: 48 MO: 142 QRSD: 74 QT: 462 QTc: 412 Creola: P: 70 MO: 142 QRS: 50 T: 29 INTERPRETIVE STATEMENTS: Marked sinus bradycardia Abnormal ECG Compared to ECG 12/13/2019 09:11:02 Sinus rhythm no longer present Electronically Signed On 01-04-21 16:39:16 CDT by Joseluis Hall
== END 2021-01-03 13:57 | disposition home or self-care (01) ==
LOC: ER 10:12
DX: S16.1XXA Strain of muscle, fascia and tendon at neck level, initial encounter (principal); Z79.01 Long term (current) use of anticoagulants
CPT/HCPCS: 93005; 85025; 80048; 36415; 83735; 85610; 82565; 80076; 84484; 83880; 70491; 71045; 96375; 96374; 99284; Q9967; J2270 ×2; J7040; J7030; J2405